=== PATIENT | male | born 1950 | race Native Hawaiian/Other Pacific Islander ===

== ENCOUNTER 2019-08-03 20:47 | Inpatient (IN) | payer MEDICARE, OTHER ==
[~2019-08-03] VITALS: Ht 167.6 cm; Wt 124.0 kg
[2019-08-03 21:50] LABS: Basophils # (auto) 0.1 uL; Basophils % (auto) 0.9 % (0.0-2.0); Eosinophils # (auto) 0.3 uL; Eosinophils % (auto) 4.8 % (0.0-7.0); Hematocrit 48.1 % (41.0-53.0); Hemoglobin 16.5 g/dL (13.5-17.5); Lymphocytes # (auto) 1.9 uL; Lymphocytes % (auto) 28.6 % (10.0-50.0); Mean Corpuscular Hemoglobin 30.4 pg (28.0-32.0); Mean Corpuscular Hgb Conc. 34.4 g/dL (32.0-36.0); Mean Corpuscular Volume 88.6 fL (80.0-100.0); Monocytes # (auto) 0.6 uL; Monocytes % (auto) 9.6 % (0.0-12.0); Neutrophils # (auto) 3.8 uL; Neutrophils % (auto) 56.1 % (37.0-80.0); Nucleated Red Blood Cells % 0.3 %; Platelet Count (auto) 209 10^3/uL (140-450); Red Blood Cells 5.43 10^6/uL (4.5-5.90); Red Cell Distribution Width 14.1 % (11.8-14.3); White Blood Cell 6.7 10^3/uL (4.4-10.8)
[2019-08-03 22:12] LABS: INR 1.16 (0.9-1.15); Partial Thromboplastin Time 30.4 sec (23.64-32.05)
[2019-08-03 22:22] LABS: Alanine Aminotransferase 758 U/L (16-61); Anion Gap 9 (5-15); Aspartate Aminotransferase 610 U/L (15-37); BUN/Creatinine Ratio 10.1; Blood Urea Nitrogen 14 mg/dL (7-18); Calcium 9.1 mg/dL (8.5-10.1); Carbon Dioxide 26 mmol/L (21-32); Chloride 102 mmol/L (98-107); GFR African American 65 mL/min; GFR Non-African American 54 mL/min; Glucose 126 mg/dL (74-106); Magnesium 2.2 mg/dL (1.6-2.6); Potassium 3.7 mmol/L (3.5-5.1); Sodium 137 mmol/L (136-145)
[2019-08-03 22:27] LABS: Alkaline Phosphatase 163 U/L (45-117); Bilirubin, Total 1.3 mg/dL (0.2-1.0); Total Protein 8.5 g/dL (6.4-8.2)
[2019-08-04] MEDS ORDERED: hydrALAZINE HCL 20 MG/ML VL IV PRN (12:45)
[2019-08-04] MEDS ORDERED: ACETAMINOPHEN 500 MG TAB PO PRN (12:45)
[2019-08-04] MEDS ORDERED: MORPHINE SULF INJ 2 MG/ML SYRINGE 1ML IV PRN ×2 (12:45)
[2019-08-04] MEDS ORDERED: NITROGLYCERIN 0.4 MG SL TAB SL PRN (12:45)
[2019-08-04] MEDS: HYDROcodone-ACET 5/325MG TAB PO PRN ×2 (13:09→20:51)
[2019-08-04 17:30] VITALS: BP 137/72
--- NOTE | 2019-08-04 17:30 | NUR ---
Received patient from ER via wheelchair. Patient vitals are 98.9, 71 bpm, 18RR, 91% and bp of 137/72. Patient laying in bed, no complaints of pain, bed in locked and lowest position and call light within reach.
--- NOTE | 2019-08-04 18:00 | NUR ---
Patient will have family bring in medications to reconcile.
--- NOTE | 2019-08-04 18:50 | NUR ---
Spoke with Dr. Zuñiga regarding patients diet. Implemented orders received.
--- NOTE | 2019-08-04 19:30 | NUR ---
Opening shift note Patient in bed alert and oriented x 4, verbally coherent, able to make needs known. Patient complained of moderate pain to lower back. Patient also complained of nausea, provided patient with emesis bag and will administer pain and nausea medication as ordered. Plan of care discussed, patient verbalized understanding. Family at bedside. All needs attended, will continue to monitor.
--- NOTE | 2019-08-04 19:35 | NUR ---
Provided patient with warm packs to lower back.
[2019-08-04] MEDS: ONDANSETRON HCL 4 MG/2 ML VIAL IV PRN (20:52)
[2019-08-04 21:32] VITALS: BP 150/76
[2019-08-04] MEDS: METOPROLOL TARTRATE 25 MG TAB PO SCH (21:49)
[2019-08-04] MEDS ORDERED: ATORVASTATIN 20 MG TAB PO SCH (22:00)
--- NOTE | 2019-08-04 23:15 | NUR ---
Pt with stress test order. Started another IV line to left hand 22 g with good blood return x 1 attempt. Patient tolerated procedure well. Will continue to monitor.
[2019-08-05 05:25] VITALS: BP 148/81
[2019-08-05 06:20] LABS: Basophils # (auto) 0.1 uL; Basophils % (auto) 1.9 % (0.0-2.0); Eosinophils # (auto) 0.6 uL; Eosinophils % (auto) 7.6 % (0.0-7.0); Hematocrit 46.3 % (41.0-53.0); Lymphocytes # (auto) 2.4 uL; Lymphocytes % (auto) 32.6 % (10.0-50.0); Mean Corpuscular Hemoglobin 30.5 pg (28.0-32.0); Mean Corpuscular Hgb Conc. 34.7 g/dL (32.0-36.0); Mean Corpuscular Volume 88.1 fL (80.0-100.0); Monocytes # (auto) 0.9 uL; Monocytes % (auto) 12.5 % (0.0-12.0); Neutrophils # (auto) 3.3 uL; Neutrophils % (auto) 45.4 % (37.0-80.0); Nucleated Red Blood Cells % 0.1 %; Platelet Count (auto) 190 10^3/uL (140-450); Red Blood Cells 5.25 10^6/uL (4.5-5.90); Red Cell Distribution Width 14.2 % (11.8-14.3); White Blood Cell 7.3 10^3/uL (4.4-10.8)
[2019-08-05 06:24] LABS: INR 1.2 (0.9-1.15); Partial Thromboplastin Time 30.1 sec (23.64-32.05)
[2019-08-05 06:33] LABS: Albumin 3.8 g/dL (3.4-5.0); Calcium 8.7 mg/dL (8.5-10.1); Potassium 3.7 mmol/L (3.5-5.1)
[2019-08-05 06:43] LABS: Cholesterol 194 mg/dL (< 200); HDL Cholesterol 32 mg/dL (40-59); LDL Cholesterol 153 mg/dL (< 100); Triglycerides 100 mg/dL (< 150)
[2019-08-05 06:45] LABS: BUN/Creatinine Ratio 14.3; Bilirubin, Total 1.4 mg/dL (0.2-1.0); Total Protein 7.1 g/dL (6.4-8.2)
--- NOTE | 2019-08-05 07:30 | NUR ---
Opening Shift Note Assumed care of patient, awake and alert X4. No S/S of distress/SOB, no pain noted or reported. Respirations are even and unlabored on RA. Updated on POC and instructed to call for assistance, patient verbalized understanding. Bed locked in lowest position, side rails up x2, call light within reach. Will continue to monitor for changes Q1hr and PRN.
[2019-08-05 09:11] VITALS: BP 152/70
[2019-08-05] MEDS: FAMOTIDINE 20 MG TAB PO SCH (09:21)
[2019-08-05] MEDS: ASPirin-EC 81 mg tab PO SCH (09:21)
[2019-08-05] MEDS: LISINOPRIL 10 MG TAB PO SCH (09:21)
[2019-08-05] MEDS: METOPROLOL TARTRATE 25 MG TAB PO SCH ×2 (09:22→21:34)
[2019-08-05] MEDS ORDERED: ADENOSINE 107 MG in GIVE UN-DILUTED 0 ML IV STA (09:59)
[2019-08-05 11:02] VITALS: BP 162/75
[2019-08-05] MEDS: ONDANSETRON HCL 4 MG/2 ML VIAL IV PRN (11:56)
[2019-08-05 13:00] VITALS: BP 112/71
[2019-08-05 17:17] VITALS: BP 146/65
--- NOTE | 2019-08-05 18:38 | NUR ---
PATIENT ROUNDS PATIENT APPEARS TO BE SLEEPING, RESTING WITH EYES CLOSED. NO S/S OF DISTRESS. NO PAIN NOTED AT THIS TIME. FAMILY AT BEDSIDE. CARE WILL BE ENDORSED TO FLEXBOARD OPERATOR RN.
--- NOTE | 2019-08-05 19:30 | NUR ---
Opening Shift Note Report received from day shift RN. Assumed care of patient. Patient awake and alert x4. No S/S of distress/SOB noted and denies pain or nausea at this time. at bedside. Bed locked and the lowest position with side rails up x2. Instructed on POC and to call for assist PRN, will continue to monitor for changes Q1hr and PRN.
[2019-08-05] MEDS: TEMAZEPAM 15 MG CAP PO PRN (21:34)
[2019-08-05 22:52] VITALS: BP 122/71
[2019-08-06 05:51] VITALS: BP 140/70
[2019-08-06] MEDS: HYDROcodone-ACET 5/325MG TAB PO PRN (06:12)
--- NOTE | 2019-08-06 08:35 | NUR ---
OPENING SHIFT NOTE ASSUMED CARE OF PATIENT. PATIENT AWAKE AND ALERT. NO SOB OR SIGNS OF DISTRESS NOTED. INSTRUCTED ON POC AND TO CALL FOR ASSISTANCE PRN. BED IN LOWEST POSITION WITH SIDE RAILS UP X2. WILL CONTINUE TO MONITOR.
[2019-08-06 09:00] VITALS: BP 134/77
[2019-08-06] MEDS: ASPirin-EC 81 mg tab PO SCH (09:43)
[2019-08-06] MEDS: LISINOPRIL 10 MG TAB PO SCH (09:44)
[2019-08-06] MEDS: FAMOTIDINE 20 MG TAB PO SCH (09:44)
[2019-08-06] MEDS: METOPROLOL TARTRATE 25 MG TAB PO SCH ×2 (10:00→21:14)
--- NOTE | 2019-08-06 10:30 | NUR ---
DR AT BEDSIDE DR FERRARA SPOKE WITH PATIENT. PLACED ORDERS. WILL CARRY OUT.
[2019-08-06 12:00] VITALS: BP 126/74
--- NOTE | 2019-08-06 13:06 | NUR ---
CALLED DR TORRE REGARDING STRESS TEST RESULTS PER DR FERRARA. AWAITING CALLBACK.
--- NOTE | 2019-08-06 15:34 | NUR ---
NUTRITION ASSESSMENT NOTES Please refer to link notes of nutrition screen form filed under the intervention section of the plan of care for further details. Est. Needs based on AdBW (79 kg): 1600 kcal to 1950 kcal (20-25 kcal/kgAdBW), 79 gms to 98 gms pro (1.0-1.2 gms/kgAdBW). Will continue to monitor pertinent labs and reassess nutrient need prn Thank you. Addendum: 08/06/19 at [address] Amended: Links added.
[2019-08-06 17:00] VITALS: BP 137/77
--- NOTE | 2019-08-06 19:15 | NUR ---
Opening Shift Note Report received from day shift RN. Assumed care of patient. Patient awake and alert x4. No S/S of distress/SOB noted and denies pain at this time. Bed locked and left in the lowest position, call light left within reach. Instructed on POC and to call for assist PRN, will continue to monitor for changes Q1hr and PRN.
[2019-08-06 22:22] VITALS: BP 137/81
[2019-08-06] MEDS: TEMAZEPAM 15 MG CAP PO PRN (23:51)
[2019-08-07 05:20] VITALS: BP 142/70
[2019-08-07 06:28] LABS: Potassium 3.3 mmol/L (3.5-5.1)
[2019-08-07 06:42] LABS: Albumin 3.6 g/dL (3.4-5.0); BUN/Creatinine Ratio 13.1; Bilirubin, Total 1.2 mg/dL (0.2-1.0); Calcium 8.7 mg/dL (8.5-10.1); Total Protein 7.6 g/dL (6.4-8.2)
--- NOTE | 2019-08-07 07:50 | NUR ---
Patient in bed, awake, oriented x4, no acute distress noted.
[2019-08-07 09:00] VITALS: BP 137/74
[2019-08-07] MEDS: HYDROcodone-ACET 5/325MG TAB PO PRN (09:30)
--- NOTE | 2019-08-07 09:30 | NUR ---
Patient stated his pain level at 10/10 at this time, that he has tingling, numbness on both his feet. Elk 5/325 PO given for pain as ordered.
[2019-08-07] MEDS: FAMOTIDINE 20 MG TAB PO SCH (09:31)
[2019-08-07] MEDS: ASPirin-EC 81 mg tab PO SCH (09:31)
[2019-08-07] MEDS: LISINOPRIL 10 MG TAB PO SCH (09:32)
[2019-08-07] MEDS: METOPROLOL TARTRATE 25 MG TAB PO SCH (09:32)
--- NOTE | 2019-08-07 09:38 | NUR ---
Vidya Machado at bedside. made aware of patient's complaint of tingling and numbness of both of his feet. Dr. Good explained to patient to follow up with his primary physician for orders for blood work as outpatient. Dr. Good to discharge the patient today.
[2019-08-07 10:52] VITALS: BP 137/74
[2019-08-07 11:17] VITALS: BP 137/74
[2019-08-07 12:37] LABS: Hepatitis A Ab IgM Negative; Hepatitis B Core IgM Negative; Hepatitis B Surface Antigen Negative (Negative)
[2019-08-07 12:38] LABS: Hepatitis C Antibody Negative (Negative)
== END 2019-08-07 12:00 | disposition home or self-care (01) | DRG 683 ==
LOC: ER 20:50 → TELE 20:51 → TELE-WESTW 08-04 17:43
PROVIDERS: ADMIT Nurse Practitioner Acute Care; ATTEND Family Medicine
DX: I12.9 Hypertensive chronic kidney disease with stage 1 through stage 4 chronic kidney disease, or unspecified chronic kidney disease (principal); Z68.41 Body mass index [BMI] 40.0-44.9, adult; I10 Essential (primary) hypertension; E66.01 Morbid (severe) obesity due to excess calories; E78.00 Pure hypercholesterolemia, unspecified; K76.0 Fatty (change of) liver, not elsewhere classified; Z91.14 Patient's other noncompliance with medication regimen; Z79.899 Other long term (current) drug therapy; N18.2 Chronic kidney disease, stage 2 (mild)
CPT/HCPCS: 36415; 71046; 74176; 76705; 78226; 78452; 80053; 80061; 80074; 83036; 83690; 83735; 83880; 84484; 85025; 85379; 85610; 85730; 86141; 93005; 93017; 93306; 96374; G0378; J0153; J2405

== ENCOUNTER → 2019-12-03 | Outpatient (CLI) | payer MEDICARE, OTHER ==
[~2019-12-03] VITALS: Ht 177.8 cm; Wt 103.9 kg
[~2019-12-03] MED LIST: ADENOSINE 87 MG in GIVE UN-DILUTED 0 ML IV ONE; ADENOSINE 90 MG/30 ML INJ IV ONE; ASPI325T4 PO; LISI10TA6 PO; METO25TA5 PO; TRAM50TA2 PO
== END | disposition home or self-care (01) ==
LOC: Rad HDHVI 12-02 09:12
PROVIDERS: ATTEND Internal Medicine Cardiovascular Disease
DX: I08.8 Other rheumatic multiple valve diseases (principal); R07.9 Chest pain, unspecified; R42 Dizziness and giddiness; R00.2 Palpitations
CPT/HCPCS: 78452; 93005; 93306; 96374; 96375; A9500; J0153

== ENCOUNTER → 2019-12-19 | Outpatient (CLI) | payer MEDICARE, OTHER ==
[~2019-12-19] MED LIST changes: -ADENOSINE 87 MG in GIVE UN-DILUTED 0 ML IV ONE; -ADENOSINE 90 MG/30 ML INJ IV ONE; +APIX2.5T PO; +ATOR40TA52 PO; +DOCU-94 PO; +LACT10SO43 PO; +METO25TA93 PO
[2019-12-19 09:00] VITALS: BP 111/66
[2019-12-19 09:30] VITALS: BP 113/61
--- NOTE | 2019-12-19 09:30 | NUR ---
Pre-Op Discharge Summary: See e-MAR for any medications given for this visit. Pre-op orders received and carried out per MD of EKG, LABS and chest xrays. Patient given a copy of EKG with instructions to go to [facility] out patient for further follow up care.
[2019-12-19 12:15] LABS: Basophils # (auto) 0 uL; Basophils % (auto) 0.5 % (0.0-2.0); Eosinophils # (auto) 0.2 uL; Eosinophils % (auto) 3.1 % (0.0-7.0); Hematocrit 41.4 % (41.0-53.0); Hemoglobin 13.9 g/dL (13.5-17.5); Lymphocytes # (auto) 2.1 uL; Lymphocytes % (auto) 27.6 % (10.0-50.0); Mean Corpuscular Hemoglobin 32.5 pg (28.0-32.0); Mean Corpuscular Hgb Conc. 33.6 g/dL (32.0-36.0); Mean Corpuscular Volume 96.9 fL (80.0-100.0); Monocytes # (auto) 0.5 uL; Monocytes % (auto) 6.1 % (0.0-12.0); Neutrophils # (auto) 4.8 uL; Neutrophils % (auto) 62.7 % (37.0-80.0); Platelet Count (auto) 194 10^3/uL (140-450); Red Blood Cells 4.28 10^6/uL (4.5-5.90); Red Cell Distribution Width 14.7 % (11.8-14.3); White Blood Cell 7.6 10^3/uL (4.4-10.8)
[2019-12-19 12:33] LABS: INR 1.07 (0.9-1.15); Partial Thromboplastin Time 30.6 sec (23.64-32.05)
[2019-12-19 12:37] LABS: Potassium 4.5 mmol/L (3.5-5.1)
[2019-12-19 12:41] LABS: BUN/Creatinine Ratio 12.3; Calcium 9.2 mg/dL (8.5-10.1)
== END | disposition home or self-care (01) ==
LOC: Rad HDHVI 08:47
PROVIDERS: ATTEND Internal Medicine Cardiovascular Disease
DX: Z01.812 Encounter for preprocedural laboratory examination (principal); I70.0 Atherosclerosis of aorta; I71.4 Abdominal aortic aneurysm, without rupture; R42 Dizziness and giddiness
CPT/HCPCS: 36415; 71046; 80048; 85025; 85610; 85730; 93005; G0463

== ENCOUNTER 2019-12-23 11:02 | Day surgery (SDC) | payer MEDICARE, OTHER ==
[~2019-12-23] VITALS: Ht 177.8 cm; Wt 105.2 kg
[~2019-12-23 11:02] MED LIST changes: -METO25TA5 PO
[2019-12-23] MEDS ORDERED: MIDAZOLAM HCL 1MG/1ML-2 ML VIAL IV ONE (12:00)
== END 2019-12-23 14:50 | disposition home or self-care (01) ==
LOC: CATH 11:02
PROVIDERS: ATTEND Internal Medicine Cardiovascular Disease
DX: R07.89 Other chest pain (principal); R06.02 Shortness of breath; I10 Essential (primary) hypertension; E78.5 Hyperlipidemia, unspecified; Z79.82 Long term (current) use of aspirin; Z79.899 Other long term (current) drug therapy
CPT/HCPCS: 93312; J2250

== ENCOUNTER → 2020-03-26 | Day surgery (SDC) | payer MEDICARE, OTHER ==
[2020-03-24 15:28] LABS: Basophils # (auto) 0 10 ^3/uL (0-0.2); Basophils % (auto) 0.9 % (0.0-2.0); Eosinophils # (auto) 0.1 10 ^3/uL (0-0.8); Eosinophils % (auto) 2.4 % (0.0-7.0); Hematocrit 40.7 % (41.0-53.0); Hemoglobin 13.5 g/dL (13.5-17.5); Lymphocytes # (auto) 1.6 10 ^3/uL (0.4-5.4); Lymphocytes % (auto) 29.4 % (10.0-50.0); Mean Corpuscular Hemoglobin 31.5 pg (28.0-32.0); Mean Corpuscular Hgb Conc. 33.2 g/dL (32.0-36.0); Mean Corpuscular Volume 94.7 fL (80.0-100.0); Monocytes # (auto) 0.4 10 ^3/uL (0-1.3); Monocytes % (auto) 6.8 % (0.0-12.0); Neutrophils # (auto) 3.3 10 ^3/uL (1.6-8.6); Neutrophils % (auto) 60.5 % (37.0-80.0); Nucleated Red Blood Cells % 0.1 %; Platelet Count (auto) 207 10^3/uL (140-450); Red Cell Distribution Width 13.5 % (11.8-14.3); White Blood Cell 5.4 10^3/uL (4.4-10.8)
[2020-03-24 15:33] LABS: INR 1.07 (0.9-1.15); Partial Thromboplastin Time 30.7 sec (23.64-32.05)
[~2020-03-26] VITALS: Ht 177.8 cm; Wt 108.9 kg
[~2020-03-26] MED LIST changes: +LIDOCAINE VISCOUS 2% 15ML UD ONE; +LISI-275 PO; +LISI-648 PO; -LISI10TA6 PO; +LORA-622 PO; +PANT40TA2 PO; +SODIUM CHLORIDE LOCK 10 ML ONE; +diphenhdrAMINE HCL 50 MG/1 ML VL ONE
[2020-03-26] MEDS: fentaNYL CITRATE 100 MCG/2 ML VL ONE ×3 (12:04→12:08)
[2020-03-26] MEDS: MIDAZOLAM HCL 5 MG/ML-1ML VIAL ONE ×2 (12:04→12:06)
[2020-03-26 13:00] VITALS: BP 108/51
== END | disposition home or self-care (01) ==
LOC: GI 10:05
PROVIDERS: ATTEND Internal Medicine Gastroenterology
DX: R10.13 Epigastric pain (principal); R11.0 Nausea; K29.50 Unspecified chronic gastritis without bleeding; K20.9 Esophagitis, unspecified; K44.9 Diaphragmatic hernia without obstruction or gangrene; J98.9 Respiratory disorder, unspecified; E66.09 Other obesity due to excess calories; Z68.34 Body mass index [BMI] 34.0-34.9, adult; Z83.3 Family history of diabetes mellitus; Z98.890 Other specified postprocedural states; Z79.01 Long term (current) use of anticoagulants; Z79.82 Long term (current) use of aspirin; Z79.899 Other long term (current) drug therapy; Z11.59 Encounter for screening for other viral diseases
CPT/HCPCS: 36415; 43239; 85025; 85610; 85730; 88305; 88312; 88313; 88342; J2250; J3010; J7030; U0003; 99152

== ENCOUNTER 2020-07-14 10:19 | Day surgery (SDC) | payer MEDICARE, OTHER ==
[2020-07-09 11:31] LABS: Basophils # (auto) 0 10 ^3/uL (0-0.2); Basophils % (auto) 0.6 % (0.0-2.0); Eosinophils # (auto) 0.2 10 ^3/uL (0-0.8); Eosinophils % (auto) 3.9 % (0.0-7.0); Hematocrit 43.3 % (41.0-53.0); Hemoglobin 14.4 g/dL (13.5-17.5); Lymphocytes # (auto) 1.7 10 ^3/uL (0.4-5.4); Lymphocytes % (auto) 34.7 % (10.0-50.0); Mean Corpuscular Hemoglobin 30.7 pg (28.0-32.0); Mean Corpuscular Hgb Conc. 33.3 g/dL (32.0-36.0); Monocytes # (auto) 0.3 10 ^3/uL (0-1.3); Monocytes % (auto) 6.9 % (0.0-12.0); Neutrophils # (auto) 2.7 10 ^3/uL (1.6-8.6); Neutrophils % (auto) 53.9 % (37.0-80.0); Platelet Count (auto) 196 10^3/uL (140-450); Red Cell Distribution Width 13.4 % (11.8-14.3)
[2020-07-09 11:52] LABS: INR 1.04 (0.9-1.15); Partial Thromboplastin Time 31.3 sec (23.0-31.2)
[~2020-07-14] VITALS: Ht 185.4 cm; Wt 111.1 kg
[~2020-07-14 10:19] MED LIST changes: -LIDOCAINE VISCOUS 2% 15ML UD ONE; -LISI-648 PO; -diphenhdrAMINE HCL 50 MG/1 ML VL ONE
[2020-07-14] MEDS: fentaNYL CITRATE 100 MCG/2 ML VL ONE ×3 (13:20→13:27)
[2020-07-14] MEDS: MIDAZOLAM HCL 5 MG/ML-1ML VIAL ONE ×4 (13:20→13:31)
[2020-07-14] MEDS: diphenhdrAMINE HCL 50 MG/1 ML VL ONE ×2 (13:36→13:51)
[2020-07-14 14:21] VITALS: BP 126/65
== END 2020-07-14 14:34 | disposition home or self-care (01) ==
LOC: GI 10:19
PROVIDERS: ATTEND Internal Medicine Gastroenterology
DX: R19.4 Change in bowel habit (principal); D12.3 Benign neoplasm of transverse colon; K64.8 Other hemorrhoids; Q43.8 Other specified congenital malformations of intestine; J98.8 Other specified respiratory disorders; I48.91 Unspecified atrial fibrillation; Z79.899 Other long term (current) drug therapy; Z79.82 Long term (current) use of aspirin; Z20.828 Contact with and (suspected) exposure to other viral communicable diseases
CPT/HCPCS: 36415; 45385; 85025; 85610; 85730; 88305; J1200; J2250; J3010; J7030; U0003; 99153; G0500

== ENCOUNTER 2021-07-05 18:04 | Inpatient (IN) | payer MEDICARE, OTHER ==
[~2021-07-05] VITALS: Ht 180.3 cm; Wt 113.8 kg
[~2021-07-05 18:04] MED LIST changes: -SODIUM CHLORIDE LOCK 10 ML ONE
[2021-07-05] MEDS ORDERED: DOPamine 1600MCG/ML D5W 250 ML IV ONE (18:15)
[2021-07-05] MEDS ORDERED: fentaNYL CITRATE 100 MCG/2 ML VL IV ONE ×2 (18:15→20:30)
[2021-07-05] MEDS ORDERED: SODIUM CHLORIDE 0.9% 1,000 ML IV ONE (18:30)
[2021-07-05 19:43] LABS: Basophils # (auto) 0.1 10 ^3/uL (0-0.2); Basophils % (auto) 0.9 % (0.0-2.0); Eosinophils # (auto) 0.1 10 ^3/uL (0-0.8); Hematocrit 45.8 % (41.0-53.0); Hemoglobin 15.4 g/dL (13.5-17.5); Mean Corpuscular Hemoglobin 31.1 pg (28.0-32.0); Mean Corpuscular Hgb Conc. 33.6 g/dL (32.0-36.0); Mean Corpuscular Volume 92.5 fL (80.0-100.0); Monocytes # (auto) 0.2 10 ^3/uL (0-1.3); Monocytes % (auto) 3.7 % (0.0-12.0); Neutrophils % (auto) 46.4 % (37.0-80.0); Nucleated Red Blood Cells % 0.2 %; Red Blood Cells 4.96 10^6/uL (4.5-5.90); Red Cell Distribution Width 13.9 % (11.8-14.3); White Blood Cell 6.5 10^3/uL (4.4-10.8)
[2021-07-05 19:48] LABS: INR 1.1 (0.9-1.15); Partial Thromboplastin Time 26.5 sec (23.6-33.0)
[2021-07-05 19:56] LABS: Albumin 3.7 g/dL (3.4-5.0); Anion Gap 10 (5-15); Blood Urea Nitrogen 31 mg/dL (7-18); Calcium 9.3 mg/dL (8.5-10.1); Carbon Dioxide 21 mmol/L (21-32); Chloride 107 mmol/L (98-107); Glucose 107 mg/dL (74-106); Potassium 3.7 mmol/L (3.5-5.1); Sodium 138 mmol/L (136-145)
[2021-07-05 20:01] LABS: Alanine Aminotransferase 21 U/L (16-61); Alkaline Phosphatase 158 U/L (45-117); Aspartate Aminotransferase 26 U/L (15-37); BUN/Creatinine Ratio 16.3; Bilirubin, Total 0.8 mg/dL (0.2-1.0); GFR African American 45 mL/min; GFR Non-African American 37 mL/min; Total Protein 7.9 g/dL (6.4-8.2)
[2021-07-05 20:40] VITALS: BP 138/57
[2021-07-05 22:10] VITALS: BP 130/50
[2021-07-05 22:25] VITALS: BP 131/67
[2021-07-05 23:10] VITALS: BP 120/60
[2021-07-05] MEDS ORDERED: metroNIDAZOLE 500MG/100ML 100 ML IV ONE (23:45)
[2021-07-05] MEDS ORDERED: cefTRIAXone 1GM/50ML D5W 50 ML IV ONE (23:45)
[2021-07-06 00:50] VITALS: BP 108/59
[2021-07-06 02:19] LABS: Hematocrit 46.8 % (41.0-53.0); Hemoglobin 16.5 g/dL (13.5-17.5)
[2021-07-06] MEDS ORDERED: NITROGLYCERIN 0.4 MG SL TAB SL PRN (02:45)
[2021-07-06] MEDS: SODIUM CHLORIDE 0.9% 1,000 ML IV SCH ×2 (02:45→16:37)
[2021-07-06] MEDS ORDERED: ONDANSETRON HCL 4 MG/2 ML VIAL IV PRN (02:45)
[2021-07-06] MEDS ORDERED: MORPHINE SULFATE INJECTION 2 MG/ML SYRG IV PRN (02:45)
[2021-07-06 02:52] LABS: Urine Bacteria NONE SEEN /hpf (None Seen); Urine Blood 2+ /uL (Negative); Urine Hyaline Cast FEW /lpf (0 - 2); Urine Mucus FEW (None Seen); Urine Specific Gravity 1.019 (1.001-1.035); Urine WBC 9 /hpf (0 - 3)
[2021-07-06] MEDS: metroNIDAZOLE 500MG/100ML 100 ML IV SCH ×3 (05:30→23:16)
[2021-07-06] MEDS: cefTRIAXone 1GM/50ML D5W 50 ML IV SCH (09:06)
[2021-07-06] MEDS: LISINOPRIL 5 MG TAB PO SCH (09:06)
[2021-07-06] MEDS: PANTOPRAZOLE 40 MG/10 ML VIAL INJ IV SCH (09:06)
[2021-07-06] MEDS: SUCRALFATE 1 GM/10 ML ORAL SUSP PO SCH ×2 (17:07→23:16)
[2021-07-06] MEDS: ATORVASTATIN 20 MG TAB PO SCH (23:17)
[2021-07-07 01:45] VITALS: BP 129/77
[2021-07-07 05:01] VITALS: BP 116/62
[2021-07-07] MEDS: SODIUM CHLORIDE 0.9% 1,000 ML IV SCH (05:25)
[2021-07-07] MEDS: metroNIDAZOLE 500MG/100ML 100 ML IV SCH ×3 (06:15→21:34)
[2021-07-07] MEDS: SUCRALFATE 1 GM/10 ML ORAL SUSP PO SCH ×4 (06:15→22:18)
[2021-07-07 06:23] LABS: Basophils # (auto) 0 10 ^3/uL (0-0.2); Basophils % (auto) 0.6 % (0.0-2.0); Eosinophils # (auto) 0.3 10 ^3/uL (0-0.8); Eosinophils % (auto) 3.9 % (0.0-7.0); Hematocrit 43.5 % (41.0-53.0); Hemoglobin 15.1 g/dL (13.5-17.5); Lymphocytes # (auto) 1.2 10 ^3/uL (0.4-5.4); Mean Corpuscular Hgb Conc. 34.8 g/dL (32.0-36.0); Mean Corpuscular Volume 92.1 fL (80.0-100.0); Monocytes # (auto) 0.6 10 ^3/uL (0-1.3); Monocytes % (auto) 8.7 % (0.0-12.0); Neutrophils # (auto) 4.7 10 ^3/uL (1.6-8.6); Neutrophils % (auto) 68.8 % (37.0-80.0); Nucleated Red Blood Cells % 0.1 %; Red Blood Cells 4.72 10^6/uL (4.5-5.90); Red Cell Distribution Width 14.2 % (11.8-14.3); White Blood Cell 6.8 10^3/uL (4.4-10.8)
[2021-07-07 06:30] LABS: Chloride 111 mmol/L (98-107); Potassium 3.8 mmol/L (3.5-5.1); Sodium 139 mmol/L (136-145)
[2021-07-07 06:42] LABS: Alanine Aminotransferase 21 U/L (16-61); Albumin 2.8 g/dL (3.4-5.0); Alkaline Phosphatase 138 U/L (45-117); Anion Gap 7 (5-15); Aspartate Aminotransferase 22 U/L (15-37); BUN/Creatinine Ratio 23.3; Bilirubin, Total 0.8 mg/dL (0.2-1.0); Blood Urea Nitrogen 30 mg/dL (7-18); Calcium 8.4 mg/dL (8.5-10.1); Carbon Dioxide 21 mmol/L (21-32); GFR African American 70 mL/min; GFR Non-African American 58 mL/min; Glucose 89 mg/dL (74-106); Total Protein 6.5 g/dL (6.4-8.2)
[2021-07-07] MEDS ORDERED: LACTULOSE 20Gm/30ML SOLN PO PRN (08:45)
[2021-07-07 09:00] VITALS: BP 122/60
[2021-07-07] MEDS: cefTRIAXone 1GM/50ML D5W 50 ML IV SCH (09:20)
[2021-07-07] MEDS: PANTOPRAZOLE 40 MG/10 ML VIAL INJ IV SCH (09:20)
[2021-07-07] MEDS: LISINOPRIL 5 MG TAB PO SCH (09:21)
[2021-07-07] MEDS: Ensure HIGH Protein Chocolate 8oz Bottle PO SCH ×2 (12:00→18:27)
[2021-07-07 13:00] VITALS: BP 126/65
[2021-07-07 17:00] VITALS: BP_SYST 95; BP_SYST 97; BP_DIAS 37; BP_DIAS 47
[2021-07-07 21:46] VITALS: BP 119/71
[2021-07-07] MEDS: ATORVASTATIN 20 MG TAB PO SCH (22:18)
[2021-07-08] MEDS: SODIUM CHLORIDE 0.9% 1,000 ML IV SCH ×3 (02:43→20:37)
[2021-07-08 05:00] VITALS: BP 124/65
[2021-07-08] MEDS: metroNIDAZOLE 500MG/100ML 100 ML IV SCH ×3 (06:01→22:38)
[2021-07-08] MEDS: SUCRALFATE 1 GM/10 ML ORAL SUSP PO SCH ×3 (06:01→22:38)
[2021-07-08 06:28] LABS: Basophils # (auto) 0 10 ^3/uL (0-0.2); Basophils % (auto) 0.5 % (0.0-2.0); Eosinophils # (auto) 0.3 10 ^3/uL (0-0.8); Eosinophils % (auto) 4.8 % (0.0-7.0); Hematocrit 43.5 % (41.0-53.0); Hemoglobin 14.8 g/dL (13.5-17.5); Lymphocytes # (auto) 1.2 10 ^3/uL (0.4-5.4); Lymphocytes % (auto) 18.2 % (10.0-50.0); Mean Corpuscular Hemoglobin 31.5 pg (28.0-32.0); Mean Corpuscular Hgb Conc. 34.1 g/dL (32.0-36.0); Mean Corpuscular Volume 92.3 fL (80.0-100.0); Monocytes # (auto) 0.6 10 ^3/uL (0-1.3); Monocytes % (auto) 9.7 % (0.0-12.0); Neutrophils # (auto) 4.3 10 ^3/uL (1.6-8.6); Neutrophils % (auto) 66.8 % (37.0-80.0); Nucleated Red Blood Cells % 0.1 %; Red Blood Cells 4.71 10^6/uL (4.5-5.90); White Blood Cell 6.4 10^3/uL (4.4-10.8)
[2021-07-08 06:41] LABS: Albumin 2.8 g/dL (3.4-5.0); Calcium 8.4 mg/dL (8.5-10.1); Potassium 3.8 mmol/L (3.5-5.1)
[2021-07-08 06:46] LABS: BUN/Creatinine Ratio 18.6; Bilirubin, Total 0.7 mg/dL (0.2-1.0); Total Protein 6.5 g/dL (6.4-8.2)
[2021-07-08] MEDS: Ensure HIGH Protein Chocolate 8oz Bottle PO SCH ×3 (08:16→20:37)
[2021-07-08] MEDS: cefTRIAXone 1GM/50ML D5W 50 ML IV SCH (08:38)
[2021-07-08 09:00] VITALS: BP 125/68
[2021-07-08] MEDS: LISINOPRIL 5 MG TAB PO SCH (09:19)
[2021-07-08] MEDS: PANTOPRAZOLE 40 MG/10 ML VIAL INJ IV SCH (09:20)
[2021-07-08 13:00] VITALS: BP 99/58
[2021-07-08 16:56] VITALS: BP 108/59
[2021-07-08 22:00] VITALS: BP 124/95
[2021-07-08] MEDS: ATORVASTATIN 20 MG TAB PO SCH (22:38)
[2021-07-09] MEDS: traMADol HCL 50 MG TAB PO PRN (02:11)
[2021-07-09 05:00] VITALS: BP 124/67
[2021-07-09 05:48] LABS: Basophils # (auto) 0 10 ^3/uL (0-0.2); Basophils % (auto) 0.5 % (0.0-2.0); Eosinophils # (auto) 0.4 10 ^3/uL (0-0.8); Eosinophils % (auto) 5.7 % (0.0-7.0); Hematocrit 42.1 % (41.0-53.0); Hemoglobin 14.7 g/dL (13.5-17.5); Lymphocytes # (auto) 1.7 10 ^3/uL (0.4-5.4); Lymphocytes % (auto) 27.1 % (10.0-50.0); Mean Corpuscular Hemoglobin 31.9 pg (28.0-32.0); Mean Corpuscular Hgb Conc. 34.8 g/dL (32.0-36.0); Mean Corpuscular Volume 91.7 fL (80.0-100.0); Monocytes # (auto) 0.6 10 ^3/uL (0-1.3); Neutrophils # (auto) 3.6 10 ^3/uL (1.6-8.6); Neutrophils % (auto) 57.7 % (37.0-80.0); Nucleated Red Blood Cells % 0.1 %; Red Cell Distribution Width 13.8 % (11.8-14.3); White Blood Cell 6.2 10^3/uL (4.4-10.8)
[2021-07-09 06:03] LABS: Potassium 3.6 mmol/L (3.5-5.1)
[2021-07-09 06:12] LABS: BUN/Creatinine Ratio 15.9; Calcium 8.2 mg/dL (8.5-10.1)
[2021-07-09] MEDS: metroNIDAZOLE 500MG/100ML 100 ML IV SCH ×3 (06:21→22:18)
[2021-07-09] MEDS: SUCRALFATE 1 GM/10 ML ORAL SUSP PO SCH ×4 (06:21→22:18)
[2021-07-09 09:00] VITALS: BP 102/74
[2021-07-09] MEDS: PANTOPRAZOLE 40 MG/10 ML VIAL INJ IV SCH (09:24)
[2021-07-09] MEDS: cefTRIAXone 1GM/50ML D5W 50 ML IV SCH (09:25)
[2021-07-09] MEDS: LISINOPRIL 5 MG TAB PO SCH (09:25)
[2021-07-09] MEDS: Ensure HIGH Protein Chocolate 8oz Bottle PO SCH ×3 (09:25→18:13)
[2021-07-09] MEDS: SODIUM CHLORIDE 0.9% 1,000 ML IV SCH (12:18)
[2021-07-09 12:39] VITALS: BP 117/68
[2021-07-09 16:44] VITALS: BP 101/72
[2021-07-09 22:00] VITALS: BP 102/69
[2021-07-09] MEDS: ATORVASTATIN 20 MG TAB PO SCH (22:18)
[2021-07-10] MEDS: traMADol HCL 50 MG TAB PO PRN ×2 (02:07→23:28)
[2021-07-10] MEDS: SODIUM CHLORIDE 0.9% 1,000 ML IV SCH ×2 (03:38→18:46)
[2021-07-10 04:59] VITALS: BP 128/76
[2021-07-10] MEDS: metroNIDAZOLE 500MG/100ML 100 ML IV SCH ×3 (05:15→21:03)
[2021-07-10] MEDS: SUCRALFATE 1 GM/10 ML ORAL SUSP PO SCH ×4 (06:02→21:04)
[2021-07-10 06:58] LABS: Basophils # (auto) 0 10 ^3/uL (0-0.2); Basophils % (auto) 0.6 % (0.0-2.0); Eosinophils # (auto) 0.3 10 ^3/uL (0-0.8); Eosinophils % (auto) 4.6 % (0.0-7.0); Hematocrit 42.7 % (41.0-53.0); Hemoglobin 14.5 g/dL (13.5-17.5); Lymphocytes # (auto) 1.5 10 ^3/uL (0.4-5.4); Lymphocytes % (auto) 25.6 % (10.0-50.0); Mean Corpuscular Hemoglobin 31.1 pg (28.0-32.0); Mean Corpuscular Volume 91.4 fL (80.0-100.0); Monocytes # (auto) 0.6 10 ^3/uL (0-1.3); Monocytes % (auto) 9.9 % (0.0-12.0); Neutrophils # (auto) 3.4 10 ^3/uL (1.6-8.6); Neutrophils % (auto) 59.3 % (37.0-80.0); Nucleated Red Blood Cells % 0.1 %; Red Blood Cells 4.66 10^6/uL (4.5-5.90); Red Cell Distribution Width 13.7 % (11.8-14.3); White Blood Cell 5.8 10^3/uL (4.4-10.8)
[2021-07-10 07:11] LABS: BUN/Creatinine Ratio 15.6; Calcium 8.4 mg/dL (8.5-10.1); Potassium 3.7 mmol/L (3.5-5.1)
[2021-07-10 09:00] VITALS: BP 114/78
[2021-07-10] MEDS: PANTOPRAZOLE 40 MG/10 ML VIAL INJ IV SCH (09:28)
[2021-07-10] MEDS: cefTRIAXone 1GM/50ML D5W 50 ML IV SCH (09:28)
[2021-07-10] MEDS: Ensure HIGH Protein Chocolate 8oz Bottle PO SCH ×3 (09:30→17:45)
[2021-07-10] MEDS: LISINOPRIL 5 MG TAB PO SCH (09:30)
[2021-07-10] MEDS: CLINDAMYCIN HCL 150 MG CAP PO SCH ×3 (13:05→23:27)
[2021-07-10 17:00] VITALS: BP 138/53
[2021-07-10] MEDS: ATORVASTATIN 20 MG TAB PO SCH (21:03)
[2021-07-10 22:00] VITALS: BP 143/93
[2021-07-11] MEDS: SODIUM CHLORIDE 0.9% 1,000 ML IV SCH ×2 (02:45→08:00)
[2021-07-11 05:00] VITALS: BP 130/74
[2021-07-11 05:16] LABS: Basophils # (auto) 0 10 ^3/uL (0-0.2); Basophils % (auto) 0.7 % (0.0-2.0); Eosinophils # (auto) 0.2 10 ^3/uL (0-0.8); Eosinophils % (auto) 4.2 % (0.0-7.0); Hematocrit 41.6 % (41.0-53.0); Hemoglobin 14.3 g/dL (13.5-17.5); Lymphocytes # (auto) 1.5 10 ^3/uL (0.4-5.4); Lymphocytes % (auto) 26.1 % (10.0-50.0); Mean Corpuscular Hemoglobin 31.2 pg (28.0-32.0); Mean Corpuscular Hgb Conc. 34.4 g/dL (32.0-36.0); Mean Corpuscular Volume 90.6 fL (80.0-100.0); Monocytes # (auto) 0.5 10 ^3/uL (0-1.3); Monocytes % (auto) 8.6 % (0.0-12.0); Neutrophils # (auto) 3.5 10 ^3/uL (1.6-8.6); Neutrophils % (auto) 60.4 % (37.0-80.0); Red Blood Cells 4.59 10^6/uL (4.5-5.90); Red Cell Distribution Width 13.4 % (11.8-14.3); White Blood Cell 5.8 10^3/uL (4.4-10.8)
[2021-07-11] MEDS: CLINDAMYCIN HCL 150 MG CAP PO SCH ×3 (05:24→17:53)
[2021-07-11] MEDS: metroNIDAZOLE 500MG/100ML 100 ML IV SCH ×2 (05:24→14:00)
[2021-07-11 05:51] LABS: Calcium 8.4 mg/dL (8.5-10.1); Potassium 3.8 mmol/L (3.5-5.1)
[2021-07-11 05:55] LABS: BUN/Creatinine Ratio 14.5
[2021-07-11] MEDS: SUCRALFATE 1 GM/10 ML ORAL SUSP PO SCH ×4 (06:00→22:34)
[2021-07-11] MEDS: Ensure HIGH Protein Chocolate 8oz Bottle PO SCH ×3 (08:00→17:53)
[2021-07-11 09:00] VITALS: BP 130/72
[2021-07-11] MEDS: cefTRIAXone 1GM/50ML D5W 50 ML IV SCH (09:00)
[2021-07-11] MEDS: LISINOPRIL 5 MG TAB PO SCH (10:00)
[2021-07-11] MEDS: PANTOPRAZOLE 40 MG/10 ML VIAL INJ IV SCH (10:00)
[2021-07-11 13:00] VITALS: BP 122/62
[2021-07-11 15:31] LABS: INR 1.22 (0.9-1.15)
[2021-07-11 17:00] VITALS: BP 135/75
[2021-07-11 22:00] VITALS: BP 138/76
[2021-07-11] MEDS: ATORVASTATIN 20 MG TAB PO SCH (22:11)
[2021-07-11] MEDS: traMADol HCL 50 MG TAB PO PRN (22:34)
[2021-07-12] VITALS (10 sets, daily range): BP systolic 122–168; BP diastolic 71–91
[2021-07-12] MEDS: SODIUM CHLORIDE 0.9% 1,000 ML IV SCH ×2 (00:10→17:00)
[2021-07-12] MEDS: CLINDAMYCIN HCL 150 MG CAP PO SCH ×3 (00:10→11:40)
[2021-07-12 05:58] LABS: Basophils # (auto) 0 10 ^3/uL (0-0.2); Basophils % (auto) 0.6 % (0.0-2.0); Eosinophils # (auto) 0.2 10 ^3/uL (0-0.8); Eosinophils % (auto) 3.6 % (0.0-7.0); Hematocrit 40.8 % (41.0-53.0); Hemoglobin 13.9 g/dL (13.5-17.5); Lymphocytes # (auto) 1.5 10 ^3/uL (0.4-5.4); Lymphocytes % (auto) 22.8 % (10.0-50.0); Mean Corpuscular Hemoglobin 31.1 pg (28.0-32.0); Mean Corpuscular Hgb Conc. 34.1 g/dL (32.0-36.0); Mean Corpuscular Volume 91.1 fL (80.0-100.0); Monocytes # (auto) 0.6 10 ^3/uL (0-1.3); Monocytes % (auto) 9.3 % (0.0-12.0); Neutrophils # (auto) 4.3 10 ^3/uL (1.6-8.6); Neutrophils % (auto) 63.7 % (37.0-80.0); Nucleated Red Blood Cells % 0.1 %; Red Blood Cells 4.48 10^6/uL (4.5-5.90); Red Cell Distribution Width 13.6 % (11.8-14.3); White Blood Cell 6.7 10^3/uL (4.4-10.8)
[2021-07-12] MEDS: SUCRALFATE 1 GM/10 ML ORAL SUSP PO SCH ×4 (07:00→21:49)
[2021-07-12 07:09] LABS: Albumin 2.6 g/dL (3.4-5.0); Calcium 8.1 mg/dL (8.5-10.1); Potassium 3.5 mmol/L (3.5-5.1)
[2021-07-12 07:11] LABS: BUN/Creatinine Ratio 12.5
[2021-07-12 07:21] LABS: Bilirubin, Total 0.5 mg/dL (0.2-1.0); Total Protein 5.9 g/dL (6.4-8.2)
[2021-07-12] MEDS: Ensure HIGH Protein Chocolate 8oz Bottle PO SCH ×3 (08:00→17:57)
[2021-07-12] MEDS: PANTOPRAZOLE 40 MG/10 ML VIAL INJ IV SCH (10:00)
[2021-07-12] MEDS: LISINOPRIL 5 MG TAB PO SCH (10:00)
[2021-07-12] MEDS: levoFLOXacin 500 MG TAB PO SCH (10:00)
[2021-07-12] MEDS ORDERED: VANCOMYCIN HCL 1000 MG VL ONE (14:01)
[2021-07-12] MEDS ORDERED: fentaNYL CITRATE 100 MCG/2 ML VL ONE (14:02)
[2021-07-12] MEDS ORDERED: MIDAZOLAM HCL 2MG/2ML 2ml VIAL (1mg/ml) ONE (14:02)
[2021-07-12] MEDS ORDERED: VANCOMYCIN 1GM/250ML 250 ML IV ONE (14:04)
[2021-07-12] MEDS ORDERED: LIDOCAINE 2%HCL (LOCAL ANESTH.) INJ 20ML MDV ONE (14:15)
[2021-07-12] MEDS: traMADol HCL 50 MG TAB PO PRN ×2 (17:05→21:33)
[2021-07-12] MEDS: ATORVASTATIN 20 MG TAB PO SCH (21:33)
[2021-07-12] MEDS: metroNIDAZOLE 500 MG TAB PO SCH (21:34)
[2021-07-12] MEDS: DOCUSATE SOD 100 MG CAP PO SCH (21:49)
[2021-07-12] MEDS: VANCOMYCIN 1GM/250ML 250 ML IV SCH (22:25)
[2021-07-13 05:00] VITALS: BP 133/77
[2021-07-13 05:46] LABS: Basophils # (auto) 0 10 ^3/uL (0-0.2); Basophils % (auto) 0.5 % (0.0-2.0); Eosinophils # (auto) 0.2 10 ^3/uL (0-0.8); Eosinophils % (auto) 2.8 % (0.0-7.0); Hematocrit 40.9 % (41.0-53.0); Hemoglobin 14.5 g/dL (13.5-17.5); Lymphocytes # (auto) 1.3 10 ^3/uL (0.4-5.4); Lymphocytes % (auto) 21.4 % (10.0-50.0); Mean Corpuscular Hemoglobin 31.9 pg (28.0-32.0); Mean Corpuscular Hgb Conc. 35.5 g/dL (32.0-36.0); Mean Corpuscular Volume 89.7 fL (80.0-100.0); Monocytes # (auto) 0.6 10 ^3/uL (0-1.3); Monocytes % (auto) 10.2 % (0.0-12.0); Neutrophils % (auto) 65.1 % (37.0-80.0); Red Blood Cells 4.56 10^6/uL (4.5-5.90); Red Cell Distribution Width 13.6 % (11.8-14.3); White Blood Cell 6.2 10^3/uL (4.4-10.8)
[2021-07-13] MEDS: metroNIDAZOLE 500 MG TAB PO SCH ×2 (05:55→14:08)
[2021-07-13] MEDS: SUCRALFATE 1 GM/10 ML ORAL SUSP PO SCH ×3 (05:55→17:00)
[2021-07-13 05:58] LABS: INR 1.3 (0.9-1.15)
[2021-07-13] MEDS: traMADol HCL 50 MG TAB PO PRN (07:25)
[2021-07-13 08:29] LABS: Potassium 2.9 mmol/L (3.5-5.1)
[2021-07-13 09:00] VITALS: BP 135/77
[2021-07-13] MEDS ORDERED: POTASSIUM CHL 20MEQ/100ML 100 ML IV SCH (09:15)
[2021-07-13] MEDS: Ensure HIGH Protein Chocolate 8oz Bottle PO SCH ×2 (09:16→12:23)
[2021-07-13] MEDS: SODIUM CHLORIDE 0.9% 1,000 ML IV SCH (09:17)
[2021-07-13] MEDS: PANTOPRAZOLE 40 MG/10 ML VIAL INJ IV SCH (09:23)
[2021-07-13] MEDS: DOCUSATE SOD 100 MG CAP PO SCH (09:24)
[2021-07-13] MEDS: LISINOPRIL 5 MG TAB PO SCH (09:24)
[2021-07-13] MEDS: levoFLOXacin 500 MG TAB PO SCH (09:24)
[2021-07-13] MEDS: VANCOMYCIN 1GM/250ML 250 ML IV SCH (09:24)
[2021-07-13] MEDS ORDERED: POTASSIUM CHL 20 Meq TABLET PO ONE ×2 (10:30→16:00)
[2021-07-13] MEDS ORDERED: PANT40TA2 PO (12:06)
[2021-07-13] MEDS ORDERED: SUCR1TAB22 PO (12:06)
[2021-07-13] MEDS ORDERED: METR500T PO (12:06)
[2021-07-13] MEDS ORDERED: LEVO500T31 PO (12:06)
[2021-07-13 13:00] VITALS: BP 142/74
[2021-07-13 14:55] VITALS: BP 142/74
== END 2021-07-13 17:20 | disposition home health service (06) | DRG 242 ==
LOC: EDBD 18:04 → ER 18:06 → TELE 07-06 02:40 → TELE-CENTR 07-06 23:38 → TELE-WESTW 07-10 11:46
PROVIDERS: ADMIT Nurse Practitioner; ATTEND Internal Medicine
PROC: 30233N1 Transfusion of Nonautologous Red Blood Cells into Peripheral Vein, Percutaneous Approach (ICD-10-PCS; principal; 2021-07-05)
PROC: 0JH606Z Insertion of Pacemaker, Dual Chamber into Chest Subcutaneous Tissue and Fascia, Open Approach (ICD-10-PCS; 2021-07-13)
PROC: 02H63JZ Insertion of Pacemaker Lead into Right Atrium, Percutaneous Approach (ICD-10-PCS; 2021-07-13)
PROC: 02HK3JZ Insertion of Pacemaker Lead into Right Ventricle, Percutaneous Approach (ICD-10-PCS; 2021-07-13)
DX: I49.5 Sick sinus syndrome (principal); N17.0 Acute kidney failure with tubular necrosis; L03.113 Cellulitis of right upper limb; K92.2 Gastrointestinal hemorrhage, unspecified; J98.11 Atelectasis; K52.9 Noninfective gastroenteritis and colitis, unspecified; I48.0 Paroxysmal atrial fibrillation; E88.09 Other disorders of plasma-protein metabolism, not elsewhere classified; E66.9 Obesity, unspecified; E78.5 Hyperlipidemia, unspecified; E87.6 Hypokalemia; I12.9 Hypertensive chronic kidney disease with stage 1 through stage 4 chronic kidney disease, or unspecified chronic kidney disease; Z20.822 Contact with and (suspected) exposure to COVID-19; N18.30 Chronic kidney disease, stage 3 unspecified; K21.9 Gastro-esophageal reflux disease without esophagitis; Z82.49 Family history of ischemic heart disease and other diseases of the circulatory system; Z83.3 Family history of diabetes mellitus; Z68.34 Body mass index [BMI] 34.0-34.9, adult
CPT/HCPCS: 33208; 36415; 36430; 71045; 74176; 80048; 80053; 81001; 82270; 82378; 83735; 84132; 84443; 84484; 85014; 85018; 85025; 85610; 85730; 86850; 86900; 86901; 86920; 87086; 87426; 93005; 93306; 96365; 96367; 96375; 97163; 99152; 99153; 99291; C1785; C9113; G0378; J0696; J2250; J3480; J3490

== ENCOUNTER → 2021-10-10 | Outpatient (CLI) | payer MEDICARE, OTHER ==
[~2021-10-10] MED LIST changes: +LEVO500T31 PO; -METO25TA93 PO; +METR500T PO; +SUCR1TAB22 PO
== END | disposition home or self-care (01) ==
LOC: Rad HDHVI 10:30
PROVIDERS: ATTEND Internal Medicine Cardiovascular Disease
DX: M19.012 Primary osteoarthritis, left shoulder (principal); M25.512 Pain in left shoulder; Z95.0 Presence of cardiac pacemaker
CPT/HCPCS: 73030

== ENCOUNTER → 2021-12-23 | Outpatient (CLI) | payer MEDICARE, OTHER ==
[~2021-12-23] MED LIST changes: +IOHEXOL 350 MG/ML 100ML IJ ONE; +SODIUM CHLORIDE 0.9% 500 ML IV ONE
[2021-12-23 13:39] VITALS: BP 122/65
[2021-12-23 14:32] LABS: BUN/Creatinine Ratio 16.4; Calcium 9.3 mg/dL (8.5-10.1); Potassium 4.6 mmol/L (3.5-5.1)
[2021-12-23 15:20] LABS: Bilirubin, Total 0.4 mg/dL (0.2-1.0); Total Protein 7.9 g/dL (6.4-8.2)
[2021-12-23 15:24] LABS: Basophils # (auto) 0.1 10 ^3/uL (0-0.2); Basophils % (auto) 1.7 % (0.0-2.0); Eosinophils # (auto) 0.1 10 ^3/uL (0-0.8); Eosinophils % (auto) 1.4 % (0.0-7.0); Hematocrit 45.8 % (41.0-53.0); Hemoglobin 15.2 g/dL (13.5-17.5); Lymphocytes # (auto) 2.1 10 ^3/uL (0.4-5.4); Lymphocytes % (auto) 36.4 % (10.0-50.0); Mean Corpuscular Hemoglobin 31.6 pg (28.0-32.0); Mean Corpuscular Hgb Conc. 33.2 g/dL (32.0-36.0); Mean Corpuscular Volume 95.2 fL (80.0-100.0); Monocytes # (auto) 0.4 10 ^3/uL (0-1.3); Monocytes % (auto) 6.3 % (0.0-12.0); Neutrophils # (auto) 3.1 10 ^3/uL (1.6-8.6); Neutrophils % (auto) 54.2 % (37.0-80.0); Nucleated Red Blood Cells % 0.1 %; Red Blood Cells 4.81 10^6/uL (4.5-5.90); Red Cell Distribution Width 14.7 % (11.8-14.3); White Blood Cell 5.7 10^3/uL (4.4-10.8)
[2021-12-23 15:30] LABS: Bilirubin, Direct 0.1 mg/dL (0-0.2)
[2021-12-23 15:37] LABS: Urine Blood Negative /uL (Negative); Urine Specific Gravity 1.022 (1.001-1.035)
[2021-12-23 15:42] VITALS: BP 117/82
[2021-12-23 16:07] LABS: Albumin 3.9 g/dL (3.4-5.0)
== END | disposition home or self-care (01) ==
LOC: Rad HDHVI 13:27
PROVIDERS: ATTEND Internal Medicine Cardiovascular Disease
DX: N62 Hypertrophy of breast (principal); R91.1 Solitary pulmonary nodule; R42 Dizziness and giddiness; R94.4 Abnormal results of kidney function studies; D51.9 Vitamin B12 deficiency anemia, unspecified; I10 Essential (primary) hypertension; E11.9 Type 2 diabetes mellitus without complications; E78.5 Hyperlipidemia, unspecified; Z95.0 Presence of cardiac pacemaker; Z85.46 Personal history of malignant neoplasm of prostate; Z79.899 Other long term (current) drug therapy
CPT/HCPCS: 36415; 71275; 80048; 80061; 80076; 81003; 82306; 83036; 84153; 84403; 84443; 85025; 96360; G0463; J7040; Q9967

== ENCOUNTER → 2021-12-28 | Outpatient (CLI) | payer MEDICARE, OTHER ==
[~2021-12-28] VITALS: Ht 180.3 cm; Wt 112.0 kg
[~2021-12-28] MED LIST changes: +ADENOSINE 90 MG/30 ML INJ IV ONE; +ADENOSINE 94 MG in GIVE UN-DILUTED 0 ML IV ONE; -IOHEXOL 350 MG/ML 100ML IJ ONE; -SODIUM CHLORIDE 0.9% 500 ML IV ONE
== END | disposition home or self-care (01) ==
LOC: Rad HDHVI 08:23
PROVIDERS: ATTEND Internal Medicine Cardiovascular Disease
DX: Z01.810 Encounter for preprocedural cardiovascular examination (principal); I10 Essential (primary) hypertension; R42 Dizziness and giddiness; E78.5 Hyperlipidemia, unspecified; R07.9 Chest pain, unspecified; R06.02 Shortness of breath; Z95.0 Presence of cardiac pacemaker
CPT/HCPCS: 78452; 93005; 96374; 96375; A9500; J0153

== ENCOUNTER 2022-05-13 18:51 | Inpatient (IN) | payer MEDICARE, OTHER ==
[~2022-05-13] VITALS: Ht 177.8 cm; Wt 114.5 kg
[~2022-05-13 18:51] MED LIST changes: -ADENOSINE 90 MG/30 ML INJ IV ONE; -ADENOSINE 94 MG in GIVE UN-DILUTED 0 ML IV ONE
[2022-05-13 20:26] LABS: Basophils # (auto) 0 10 ^3/uL (0-0.2); Basophils % (auto) 0.4 % (0.0-2.0); Eosinophils # (auto) 0.2 10 ^3/uL (0-0.8); Eosinophils % (auto) 2.7 % (0.0-7.0); Hematocrit 43.2 % (41.0-53.0); Hemoglobin 14.3 g/dL (13.5-17.5); Lymphocytes # (auto) 2.1 10 ^3/uL (0.4-5.4); Lymphocytes % (auto) 29.2 % (10.0-50.0); Mean Corpuscular Hemoglobin 30.3 pg (28.0-32.0); Mean Corpuscular Hgb Conc. 33.1 g/dL (32.0-36.0); Mean Corpuscular Volume 91.5 fL (80.0-100.0); Monocytes # (auto) 0.5 10 ^3/uL (0-1.3); Monocytes % (auto) 6.8 % (0.0-12.0); Neutrophils # (auto) 4.3 10 ^3/uL (1.6-8.6); Neutrophils % (auto) 60.9 % (37.0-80.0); Nucleated Red Blood Cells % 0.1 %; Red Blood Cells 4.71 10^6/uL (4.5-5.90); Red Cell Distribution Width 13.7 % (11.8-14.3); White Blood Cell 7.1 10^3/uL (4.4-10.8)
[2022-05-13 20:51] LABS: Albumin 3.7 g/dL (3.4-5.0); Calcium 8.6 mg/dL (8.5-10.1); Magnesium 2.2 mg/dL (1.6-2.6); Potassium 4.6 mmol/L (3.5-5.1)
[2022-05-13 20:53] LABS: BUN/Creatinine Ratio 19.7
[2022-05-13 20:56] LABS: Bilirubin, Total 0.2 mg/dL (0.2-1.0); Total Protein 7.9 g/dL (6.4-8.2)
[2022-05-14] MEDS ORDERED: APIXABAN 2.5 MG TAB PO ONE (03:30)
[2022-05-14] MEDS ORDERED: hydrALAZINE HCL 20 MG/ML VL IV PRN (03:30)
[2022-05-14] MEDS ORDERED: ONDANSETRON HCL 4 MG/2 ML VIAL IV PRN (03:30)
[2022-05-14] MEDS ORDERED: DOCUSATE SOD 100 MG CAP PO PRN (03:30)
[2022-05-14] MEDS ORDERED: ACETAMINOPHEN 325 MG TAB PO PRN (03:30)
[2022-05-14] MEDS ORDERED: MORPHINE SULFATE INJ 2 MG/ml SYRG IV PRN (06:00)
[2022-05-14] MEDS ORDERED: NITROGLYCERIN 0.4 MG SL TAB SL PRN (06:00)
[2022-05-14] MEDS: SODIUM CHLORIDE 0.9% 1,000 ML IV SCH ×3 (06:25→12:52)
[2022-05-14 08:42] LABS: Basophils # (auto) 0 10 ^3/uL (0-0.2); Basophils % (auto) 0.5 % (0.0-2.0); Eosinophils # (auto) 0.2 10 ^3/uL (0-0.8); Eosinophils % (auto) 3.2 % (0.0-7.0); Hematocrit 41.2 % (41.0-53.0); Hemoglobin 13.7 g/dL (13.5-17.5); Lymphocytes # (auto) 1.6 10 ^3/uL (0.4-5.4); Lymphocytes % (auto) 27.9 % (10.0-50.0); Mean Corpuscular Hemoglobin 30.4 pg (28.0-32.0); Mean Corpuscular Hgb Conc. 33.2 g/dL (32.0-36.0); Mean Corpuscular Volume 91.4 fL (80.0-100.0); Monocytes # (auto) 0.4 10 ^3/uL (0-1.3); Monocytes % (auto) 7.7 % (0.0-12.0); Neutrophils # (auto) 3.4 10 ^3/uL (1.6-8.6); Neutrophils % (auto) 60.7 % (37.0-80.0); Red Blood Cells 4.51 10^6/uL (4.5-5.90); Red Cell Distribution Width 13.8 % (11.8-14.3); White Blood Cell 5.6 10^3/uL (4.4-10.8)
[2022-05-14 08:54] LABS: Albumin 3.4 g/dL (3.4-5.0); Calcium 8.6 mg/dL (8.5-10.1); Potassium 4.1 mmol/L (3.5-5.1)
[2022-05-14 08:57] LABS: Bilirubin, Total 0.4 mg/dL (0.2-1.0); Total Protein 7.5 g/dL (6.4-8.2)
[2022-05-14] MEDS: FAMOTIDINE (10MG/ML) 2ML VL IV SCH ×2 (10:29→10:38)
[2022-05-14] MEDS: ASPirin 81 mg TAB PO SCH (10:29)
[2022-05-14] MEDS: LISINOPRIL 5 MG TAB PO SCH ×2 (10:32→10:40)
[2022-05-14] MEDS ORDERED: METO25TA5 PO (12:40)
[2022-05-14] MEDS ORDERED: GABA300C10 PO (12:40)
[2022-05-14 23:27] LABS: Urine Bacteria NONE SEEN /hpf (None Seen); Urine Blood Negative /uL (Negative); Urine Specific Gravity 1.011 (1.001-1.035); Urine WBC <1 /hpf (0 - 3)
[2022-05-15 03:44] LABS: Basophils # (auto) 0 10 ^3/uL (0-0.2); Basophils % (auto) 0.5 % (0.0-2.0); Eosinophils # (auto) 0.1 10 ^3/uL (0-0.8); Hemoglobin 14.6 g/dL (13.5-17.5); Lymphocytes % (auto) 32.7 % (10.0-50.0); Mean Corpuscular Hemoglobin 30.4 pg (28.0-32.0); Mean Corpuscular Hgb Conc. 33.2 g/dL (32.0-36.0); Mean Corpuscular Volume 91.5 fL (80.0-100.0); Monocytes # (auto) 0.4 10 ^3/uL (0-1.3); Monocytes % (auto) 6.9 % (0.0-12.0); Neutrophils # (auto) 3.5 10 ^3/uL (1.6-8.6); Neutrophils % (auto) 57.9 % (37.0-80.0); Nucleated Red Blood Cells % 0.1 %; Red Blood Cells 4.81 10^6/uL (4.5-5.90); Red Cell Distribution Width 13.7 % (11.8-14.3)
[2022-05-15 04:03] LABS: Albumin 3.4 g/dL (3.4-5.0); Calcium 8.6 mg/dL (8.5-10.1); Potassium 4.1 mmol/L (3.5-5.1)
[2022-05-15 04:07] LABS: BUN/Creatinine Ratio 15.2; Bilirubin, Total 0.6 mg/dL (0.2-1.0); Total Protein 7.8 g/dL (6.4-8.2)
[2022-05-15] MEDS: HYDROcodone-ACET 5/325MG TAB PO PRN ×3 (06:08→21:38)
[2022-05-15] MEDS: ASPirin 81 mg TAB PO SCH (10:46)
[2022-05-15 16:37] LABS: Alcohol, Urine < 3.0 mg/dL (0-10); Amphetamine Screen, Urine NEGATIVE (NEGATIVE); Barbiturate Scree,Urine NEGATIVE (NEGATIVE); Benzodiazephine Screen, Urine NEGATIVE (NEGATIVE); Cannabinoid Screen, Urine NEGATIVE (NEGATIVE); Cocaine Screen, Urine NEGATIVE (NEGATIVE); Opiate Scree,Urine NEGATIVE (NEGATIVE); Phencyclidine Screen, Urine NEGATIVE (NEGATIVE)
[2022-05-15 16:51] VITALS: BP 133/82
[2022-05-15 22:00] VITALS: BP 106/59
[2022-05-15] MEDS ORDERED: ATORVASTATIN 20 MG TAB PO SCH (22:00)
[2022-05-16 05:00] VITALS: BP 113/71
[2022-05-16 05:25] LABS: Calcium 8.6 mg/dL (8.5-10.1); Magnesium 2.4 mg/dL (1.6-2.6); Potassium 4.2 mmol/L (3.5-5.1)
[2022-05-16 05:27] LABS: BUN/Creatinine Ratio 17.3
[2022-05-16] MEDS: SODIUM CHLORIDE 0.9% 1,000 ML IV SCH (05:30)
[2022-05-16 09:00] VITALS: BP 112/55
[2022-05-16] MEDS: ASPirin 81 mg TAB PO SCH (09:19)
[2022-05-16] MEDS: LISINOPRIL 5 MG TAB PO SCH (09:20)
[2022-05-16] MEDS ORDERED: PANTOPRAZOLE 40 MG TAB PO SCH (10:00)
[2022-05-16 13:00] VITALS: BP 108/44
[2022-05-16 15:50] VITALS: BP 112/55
[2022-05-16 16:44] VITALS: BP 133/70
== END 2022-05-16 18:22 | disposition home or self-care (01) | DRG 308 ==
LOC: ER 18:51 → TELE 05-14 05:52 → TELE-WESTW 05-15 14:50
PROVIDERS: ADMIT Nurse Practitioner Family; ATTEND Internal Medicine
PROC: 4B02XSZ Measurement of Cardiac Pacemaker, External Approach (ICD-10-PCS; principal; 2022-05-15)
DX: T82.111A Breakdown (mechanical) of cardiac pulse generator (battery), initial encounter (principal); N17.0 Acute kidney failure with tubular necrosis; N18.30 Chronic kidney disease, stage 3 unspecified; I48.0 Paroxysmal atrial fibrillation; E78.5 Hyperlipidemia, unspecified; E66.9 Obesity, unspecified; G89.29 Other chronic pain; K21.9 Gastro-esophageal reflux disease without esophagitis; M54.50 Low back pain, unspecified; I12.9 Hypertensive chronic kidney disease with stage 1 through stage 4 chronic kidney disease, or unspecified chronic kidney disease; Y71.2 Prosthetic and other implants, materials and accessory cardiovascular devices associated with adverse incidents; Y92.89 Other specified places as the place of occurrence of the external cause; Z82.49 Family history of ischemic heart disease and other diseases of the circulatory system; Z83.3 Family history of diabetes mellitus; Z95.0 Presence of cardiac pacemaker; Z20.822 Contact with and (suspected) exposure to COVID-19; Z68.29 Body mass index [BMI] 29.0-29.9, adult
CPT/HCPCS: 36415; 71045; 72131; 74176; 76775; 80048; 80053; 80307; 81001; 83735; 83880; 84484; 85025; 93005; 96361; 96374; G0378; J3490

== ENCOUNTER 2023-04-04 10:50 | Emergency (ER) | payer MEDICARE, OTHER ==
[~2023-04-04] VITALS: Ht 170.2 cm; Wt 120.0 kg
[~2023-04-04 10:50] MED LIST changes: +GABA-1250 PO; +METO25TA5 PO
[2023-04-04 13:25] LABS: Basophils # (auto) 0 10 ^3/uL (0-0.2); Basophils % (auto) 0.9 % (0.0-2.0); Eosinophils # (auto) 0.1 10 ^3/uL (0-0.8); Hematocrit 40.8 % (41.0-53.0); Hemoglobin 13.7 g/dL (13.5-17.5); Lymphocytes # (auto) 1.3 10 ^3/uL (0.4-5.4); Lymphocytes % (auto) 26.9 % (10.0-50.0); Mean Corpuscular Hemoglobin 31.1 pg (28.0-32.0); Mean Corpuscular Hgb Conc. 33.7 g/dL (32.0-36.0); Mean Corpuscular Volume 92.4 fL (80.0-100.0); Monocytes # (auto) 0.3 10 ^3/uL (0-1.3); Monocytes % (auto) 6.7 % (0.0-12.0); Neutrophils % (auto) 62.5 % (37.0-80.0); Nucleated Red Blood Cells % 0.1 %; Red Blood Cells 4.41 10^6/uL (4.5-5.90); Red Cell Distribution Width 14.6 % (11.8-14.3); White Blood Cell 4.8 10^3/uL (4.4-10.8)
[2023-04-04 13:49] LABS: Albumin 3.7 g/dL (3.4-5.0); Calcium 8.7 mg/dL (8.5-10.1)
[2023-04-04 14:06] LABS: Bilirubin, Total 0.6 mg/dL (0.2-1.0); Total Protein 7.9 g/dL (6.4-8.2)
[2023-04-04] MEDS ORDERED: HYDROcodone-ACET 10/325MG TAB PO ONE (16:15)
[2023-04-04] MEDS ORDERED: BACL5TAB2 PO (16:18)
[2023-04-04] MEDS ORDERED: LIDO5DIS21 TOP (16:18)
[2023-04-04 16:50] VITALS: BP 127/60
== END 2023-04-04 17:22 | disposition home or self-care (01) ==
LOC: ER 10:50
DX: S76.011A Strain of muscle, fascia and tendon of right hip, initial encounter (principal); M54.41 Lumbago with sciatica, right side; M62.830 Muscle spasm of back; E11.9 Type 2 diabetes mellitus without complications; I10 Essential (primary) hypertension; X50.1XXA Overexertion from prolonged static or awkward postures, initial encounter; Y93.89 Activity, other specified; Y92.89 Other specified places as the place of occurrence of the external cause; Y99.8 Other external cause status
CPT/HCPCS: 36415; 72131; 74176; 80053; 85025

== ENCOUNTER 2023-06-04 15:21 | Inpatient (IN) | payer MEDICARE, OTHER ==
[~2023-06-04] VITALS: Ht 180.3 cm; Wt 121.7 kg
[~2023-06-04 15:21] MED LIST changes: +BACL5TAB2 PO; +LIDO5DIS21 TOP
[2023-06-04] MEDS ORDERED: SODIUM CHLORIDE 0.9% 500 ML IVB ONE (15:45)
[2023-06-04 16:00] LABS: Basophils # (auto) 0 10 ^3/uL (0-0.2); Basophils % (auto) 0.8 % (0.0-2.0); Eosinophils # (auto) 0.1 10 ^3/uL (0-0.8); Eosinophils % (auto) 3.2 % (0.0-7.0); Hematocrit 37.6 % (41.0-53.0); Hemoglobin 12.4 g/dL (13.5-17.5); Lymphocytes # (auto) 1.3 10 ^3/uL (0.4-5.4); Mean Corpuscular Hemoglobin 30.8 pg (28.0-32.0); Mean Corpuscular Volume 93.3 fL (80.0-100.0); Monocytes # (auto) 0.3 10 ^3/uL (0-1.3); Monocytes % (auto) 6.6 % (0.0-12.0); Neutrophils # (auto) 2.8 10 ^3/uL (1.6-8.6); Neutrophils % (auto) 61.4 % (37.0-80.0); Red Blood Cells 4.03 10^6/uL (4.5-5.90); Red Cell Distribution Width 14.1 % (11.8-14.3); White Blood Cell 4.5 10^3/uL (4.4-10.8)
[2023-06-04] MEDS ORDERED: SODIUM CHLORIDE 0.9% 1,000 ML IV ONE (16:00)
[2023-06-04 16:23] LABS: Albumin 2.8 g/dL (3.4-5.0); Calcium 7.7 mg/dL (8.5-10.1); Potassium 4.1 mmol/L (3.5-5.1)
[2023-06-04 16:27] LABS: Bilirubin, Total 0.4 mg/dL (0.2-1.0); Total Protein 5.8 g/dL (6.4-8.2)
[2023-06-04 16:28] LABS: Magnesium 2.5 mg/dL (1.6-2.6)
[2023-06-04 16:30] LABS: Blood Alcohol < 3.0 mg/dL (<10)
[2023-06-04 16:49] LABS: INR 1.09 (0.9-1.15); Partial Thromboplastin Time 29.7 SEC (24.5-34.5); Prothrombin Time 11.4 sec (9.3-11.8)
[2023-06-04] MEDS ORDERED: IOHEXOL 300 MG/ML 100ML BOTTLE IJ ONE (17:25)
[2023-06-04 17:30] VITALS: PULSE 68; RESP 16; O2SAT 94
[2023-06-04 21:21] VITALS: PULSE 69; RESP 12; O2SAT 99
[2023-06-05] MEDS ORDERED: NITROGLYCERIN 0.4 MG SL TAB SL PRN (01:45)
[2023-06-05] MEDS ORDERED: ACETAMINOPHEN 325 MG TAB PO PRN (01:45)
[2023-06-05] MEDS ORDERED: ONDANSETRON HCL 4 MG/2 ML VIAL IV PRN (01:45)
[2023-06-05 08:00] VITALS: PULSE 64; RESP 12; O2SAT 97
[2023-06-05] MEDS ORDERED: ASPirin 81 mg TAB PO SCH (10:00)
[2023-06-05] MEDS: PANTOPRAZOLE 40 MG TAB PO SCH (10:39)
[2023-06-05] MEDS: APIXABAN 2.5 MG TAB PO SCH ×2 (10:39→22:06)
[2023-06-05] MEDS ORDERED: SODIUM CHLORIDE 0.9% 1,000 ML IV SCH (10:45)
[2023-06-05] MEDS ORDERED: SODIUM CHLORIDE 0.9% 500 ML IV ONE (10:45)
[2023-06-05] MEDS: SODIUM CHLORIDE 0.9% 1,000 ML IV SCH (14:15)
[2023-06-05 19:19] VITALS: PULSE 72; RESP 16; O2SAT 96
[2023-06-05] MEDS: ATORVASTATIN 20 MG TAB PO SCH (22:05)
[2023-06-05] MEDS: MORPHINE SULFATE INJ 2 MG/ml SYRG IV PRN (22:10)
[2023-06-05 23:14] VITALS: BP 122/102; PULSE 76; RESP 18; TEMP 98.3; O2SAT 99
[2023-06-05] MEDS ORDERED: MET25T PO (23:49)
[2023-06-05] MEDS ORDERED: DICL75TA4 PO (23:51)
[2023-06-06] VITALS (7 sets, daily range): BP systolic 119–127; BP diastolic 53–71; PULSE 60–93; RESP 15–20; TEMP 97.9–98.5; O2SAT 96–99
[2023-06-06 00:43] LABS: COVID19 ANTIGEN SOFIA FIA NEGATIVE (NEGATIVE)
[2023-06-06] MEDS: SODIUM CHLORIDE 0.9% 1,000 ML IV SCH ×2 (03:35→11:52)
[2023-06-06 05:34] LABS: Basophils # (auto) 0 10 ^3/uL (0-0.2); Basophils % (auto) 0.5 % (0.0-2.0); Eosinophils # (auto) 0.2 10 ^3/uL (0-0.8); Eosinophils % (auto) 3.1 % (0.0-7.0); Hematocrit 35.7 % (41.0-53.0); Hemoglobin 11.8 g/dL (13.5-17.5); Lymphocytes # (auto) 1.7 10 ^3/uL (0.4-5.4); Lymphocytes % (auto) 28.5 % (10.0-50.0); Mean Corpuscular Hemoglobin 30.9 pg (28.0-32.0); Mean Corpuscular Hgb Conc. 33.2 g/dL (32.0-36.0); Monocytes # (auto) 0.5 10 ^3/uL (0-1.3); Monocytes % (auto) 8.3 % (0.0-12.0); Neutrophils # (auto) 3.5 10 ^3/uL (1.6-8.6); Neutrophils % (auto) 59.6 % (37.0-80.0); Nucleated Red Blood Cells % 0.1 %; Red Blood Cells 3.84 10^6/uL (4.5-5.90); Red Cell Distribution Width 14.1 % (11.8-14.3); White Blood Cell 5.8 10^3/uL (4.4-10.8)
[2023-06-06 05:42] LABS: Albumin 2.9 g/dL (3.4-5.0); Calcium 7.9 mg/dL (8.5-10.1); Potassium 4.1 mmol/L (3.5-5.1)
[2023-06-06 05:47] LABS: BUN/Creatinine Ratio 16.4 (10.0-20.0); Bilirubin, Total 0.4 mg/dL (0.2-1.0); Total Protein 6.3 g/dL (6.4-8.2)
[2023-06-06] MEDS ORDERED: SODIUM CHLORIDE 0.9% 1,000 ML IV SCH (08:30)
[2023-06-06] MEDS: PANTOPRAZOLE 40 MG TAB PO SCH (10:18)
[2023-06-06] MEDS: APIXABAN 2.5 MG TAB PO SCH ×2 (10:19→21:55)
[2023-06-06 12:10] LABS: Urine Bacteria NONE SEEN /hpf (None Seen); Urine Blood Negative /uL (Negative); Urine Clarity Clear (Clear); Urine Color Colorless (Yellow); Urine Protein, UAD Negative (Negative); Urine Specific Gravity 1.011 (1.001-1.035); Urine Urobilinogen Normal (Negative); Urine WBC <1 /hpf (0 - 3); Urine pH 5.5 (5.0-8.0)
[2023-06-06] MEDS: ATORVASTATIN 20 MG TAB PO SCH (21:55)
[2023-06-07] VITALS (7 sets, daily range): BP systolic 115–132; BP diastolic 54–77; PULSE 60–67; RESP 18–60; TEMP 97.4–98.5; O2SAT 96–99
[2023-06-07] MEDS: SODIUM CHLORIDE 0.9% 1,000 ML IV SCH ×2 (03:40→08:30)
[2023-06-07 07:01] LABS: Basophils # (auto) 0 10 ^3/uL (0-0.2); Basophils % (auto) 0.5 % (0.0-2.0); Eosinophils # (auto) 0.2 10 ^3/uL (0-0.8); Eosinophils % (auto) 3.2 % (0.0-7.0); Hematocrit 37.1 % (41.0-53.0); Hemoglobin 12.3 g/dL (13.5-17.5); Lymphocytes # (auto) 1.6 10 ^3/uL (0.4-5.4); Lymphocytes % (auto) 31.7 % (10.0-50.0); Mean Corpuscular Hemoglobin 31.3 pg (28.0-32.0); Mean Corpuscular Hgb Conc. 33.1 g/dL (32.0-36.0); Mean Corpuscular Volume 94.5 fL (80.0-100.0); Monocytes # (auto) 0.4 10 ^3/uL (0-1.3); Monocytes % (auto) 8.2 % (0.0-12.0); Neutrophils # (auto) 2.9 10 ^3/uL (1.6-8.6); Neutrophils % (auto) 56.4 % (37.0-80.0); Red Blood Cells 3.93 10^6/uL (4.5-5.90); Red Cell Distribution Width 14.3 % (11.8-14.3); White Blood Cell 5.1 10^3/uL (4.4-10.8)
[2023-06-07 07:14] LABS: Potassium 3.8 mmol/L (3.5-5.1)
[2023-06-07 07:19] LABS: BUN/Creatinine Ratio 13.8 (10.0-20.0); Calcium 8.4 mg/dL (8.5-10.1)
[2023-06-07] MEDS: PANTOPRAZOLE 40 MG TAB PO SCH (08:29)
[2023-06-07] MEDS: APIXABAN 2.5 MG TAB PO SCH (08:29)
[2023-06-07] MEDS: MORPHINE SULFATE INJ 2 MG/ml SYRG IV PRN (10:52)
[2023-06-07] MEDS: ATORVASTATIN 20 MG TAB PO SCH (21:12)
[2023-06-08] VITALS (7 sets, daily range): BP systolic 127–151; BP diastolic 67–76; PULSE 60–88; RESP 18–20; TEMP 97.9–98.5; O2SAT 95–100
[2023-06-08] MEDS: HYDROcodone-ACET 5/325MG TAB PO PRN ×2 (00:58→10:57)
[2023-06-08 05:34] LABS: Calcium 8.1 mg/dL (8.5-10.1); Potassium 3.6 mmol/L (3.5-5.1)
[2023-06-08 05:36] LABS: BUN/Creatinine Ratio 13.5 (10.0-20.0)
[2023-06-08 05:40] LABS: Basophils # (auto) 0 10 ^3/uL (0-0.2); Basophils % (auto) 0.5 % (0.0-2.0); Eosinophils # (auto) 0.2 10 ^3/uL (0-0.8); Eosinophils % (auto) 3.5 % (0.0-7.0); Hematocrit 35.8 % (41.0-53.0); Hemoglobin 12.1 g/dL (13.5-17.5); Lymphocytes # (auto) 1.8 10 ^3/uL (0.4-5.4); Lymphocytes % (auto) 31.4 % (10.0-50.0); Mean Corpuscular Hemoglobin 31.5 pg (28.0-32.0); Mean Corpuscular Hgb Conc. 33.8 g/dL (32.0-36.0); Mean Corpuscular Volume 93.1 fL (80.0-100.0); Monocytes # (auto) 0.5 10 ^3/uL (0-1.3); Monocytes % (auto) 8.2 % (0.0-12.0); Neutrophils # (auto) 3.2 10 ^3/uL (1.6-8.6); Neutrophils % (auto) 56.4 % (37.0-80.0); Nucleated Red Blood Cells % 0.1 %; Red Blood Cells 3.84 10^6/uL (4.5-5.90); Red Cell Distribution Width 13.9 % (11.8-14.3); White Blood Cell 5.7 10^3/uL (4.4-10.8)
[2023-06-08] MEDS: PANTOPRAZOLE 40 MG TAB PO SCH (10:09)
[2023-06-08] MEDS ORDERED: FUROSEMIDE 20 MG/2 ML VIAL IV ONE (11:15)
[2023-06-08] MEDS: ATORVASTATIN 20 MG TAB PO SCH (21:15)
[2023-06-09] VITALS (8 sets, daily range): BP systolic 101–124; BP diastolic 59–66; PULSE 60–91; RESP 17–20; TEMP 98–98.6; O2SAT 96–98
[2023-06-09 06:25] LABS: Basophils # (auto) 0 10 ^3/uL (0-0.2); Basophils % (auto) 0.8 % (0.0-2.0); Eosinophils # (auto) 0.2 10 ^3/uL (0-0.8); Eosinophils % (auto) 2.9 % (0.0-7.0); Hematocrit 38.1 % (41.0-53.0); Hemoglobin 13.1 g/dL (13.5-17.5); Lymphocytes # (auto) 1.6 10 ^3/uL (0.4-5.4); Lymphocytes % (auto) 29.8 % (10.0-50.0); Mean Corpuscular Hemoglobin 31.6 pg (28.0-32.0); Mean Corpuscular Hgb Conc. 34.3 g/dL (32.0-36.0); Mean Corpuscular Volume 92.2 fL (80.0-100.0); Monocytes # (auto) 0.5 10 ^3/uL (0-1.3); Monocytes % (auto) 8.6 % (0.0-12.0); Neutrophils # (auto) 3.1 10 ^3/uL (1.6-8.6); Neutrophils % (auto) 57.9 % (37.0-80.0); Nucleated Red Blood Cells % 0.1 %; Red Blood Cells 4.14 10^6/uL (4.5-5.90); White Blood Cell 5.4 10^3/uL (4.4-10.8)
[2023-06-09 06:29] LABS: Potassium 3.9 mmol/L (3.5-5.1)
[2023-06-09 06:34] LABS: BUN/Creatinine Ratio 13.5 (10.0-20.0); Calcium 8.7 mg/dL (8.5-10.1)
[2023-06-09] MEDS: PANTOPRAZOLE 40 MG TAB PO SCH (09:35)
[2023-06-09] MEDS ORDERED: ACETYLCYSTEINE ORAL for CIN 20%(200MG/ML) 4ML PO ONE (11:15)
[2023-06-09] MEDS: ACETYLCYSTEINE ORAL for CIN 20%(200MG/ML) 4ML PO SCH ×2 (15:07→22:16)
[2023-06-09] MEDS ORDERED: IOHEXOL 350 MG/ML 100ML IJ ONE (15:08)
[2023-06-09] MEDS: ATORVASTATIN 20 MG TAB PO SCH (22:16)
[2023-06-10] VITALS (11 sets, daily range): BP systolic 101–119; BP diastolic 49–71; PULSE 66–91; RESP 18–22; TEMP 98.1–98.6; O2SAT 97–99
[2023-06-10 07:45] LABS: Calcium 8.1 mg/dL (8.5-10.1); Potassium 3.5 mmol/L (3.5-5.1)
[2023-06-10 07:49] LABS: BUN/Creatinine Ratio 17.7 (10.0-20.0)
[2023-06-10] MEDS: PANTOPRAZOLE 40 MG TAB PO SCH (09:11)
[2023-06-10] MEDS: ACETYLCYSTEINE ORAL for CIN 20%(200MG/ML) 4ML PO SCH ×2 (09:16→23:25)
[2023-06-10] MEDS: MORPHINE SULFATE INJ 2 MG/ml SYRG IV PRN ×2 (15:30)
[2023-06-10] MEDS: ATORVASTATIN 20 MG TAB PO SCH (23:25)
[2023-06-11 05:00] VITALS: BP 106/66; PULSE 77; RESP 19; TEMP 97.6; O2SAT 100
[2023-06-11 06:35] LABS: Basophils # (auto) 0 10 ^3/uL (0-0.2); Basophils % (auto) 0.6 % (0.0-2.0); Eosinophils # (auto) 0.2 10 ^3/uL (0-0.8); Eosinophils % (auto) 2.7 % (0.0-7.0); Hematocrit 40.1 % (41.0-53.0); Hemoglobin 13.2 g/dL (13.5-17.5); Lymphocytes # (auto) 1.6 10 ^3/uL (0.4-5.4); Lymphocytes % (auto) 26.6 % (10.0-50.0); Mean Corpuscular Hemoglobin 30.7 pg (28.0-32.0); Mean Corpuscular Volume 93.2 fL (80.0-100.0); Monocytes # (auto) 0.5 10 ^3/uL (0-1.3); Monocytes % (auto) 7.9 % (0.0-12.0); Neutrophils # (auto) 3.8 10 ^3/uL (1.6-8.6); Neutrophils % (auto) 62.2 % (37.0-80.0); Nucleated Red Blood Cells % 0.1 %; Red Cell Distribution Width 14.3 % (11.8-14.3); White Blood Cell 6.1 10^3/uL (4.4-10.8)
[2023-06-11 07:05] LABS: Calcium 8.3 mg/dL (8.5-10.1); Potassium 3.5 mmol/L (3.5-5.1)
[2023-06-11 07:07] LABS: BUN/Creatinine Ratio 13.7 (10.0-20.0)
[2023-06-11 08:00] VITALS: PULSE 65
[2023-06-11 09:00] VITALS: BP 116/57; PULSE 64; RESP 22; TEMP 97.8; O2SAT 100
[2023-06-11] MEDS: PANTOPRAZOLE 40 MG TAB PO SCH (10:14)
[2023-06-11] MEDS: HYDROcodone-ACET 5/325MG TAB PO PRN (10:14)
[2023-06-11 10:33] VITALS: BP 138/82
== END 2023-06-11 11:55 | disposition home or self-care (01) | DRG 312 ==
LOC: EDBD 15:21 → ER 15:21 → TELE 06-05 01:37 → TELE-EAST 06-05 23:07
PROVIDERS: ADMIT Internal Medicine; ATTEND Student in an Organized Health Care Education/Training Program
DX: I95.1 Orthostatic hypotension (principal); D68.59 Other primary thrombophilia; N17.9 Acute kidney failure, unspecified; E44.1 Mild protein-calorie malnutrition; I49.5 Sick sinus syndrome; N18.9 Chronic kidney disease, unspecified; Z20.822 Contact with and (suspected) exposure to COVID-19; E66.01 Morbid (severe) obesity due to excess calories; I48.91 Unspecified atrial fibrillation; E11.22 Type 2 diabetes mellitus with diabetic chronic kidney disease; I12.9 Hypertensive chronic kidney disease with stage 1 through stage 4 chronic kidney disease, or unspecified chronic kidney disease; K58.9 Irritable bowel syndrome, unspecified; K21.9 Gastro-esophageal reflux disease without esophagitis; Z68.37 Body mass index [BMI] 37.0-37.9, adult; Z83.3 Family history of diabetes mellitus; Z82.49 Family history of ischemic heart disease and other diseases of the circulatory system
CPT/HCPCS: 36415; 70450; 71045; 71260; 71275; 74176; 74177; 80048; 80053; 80320; 81001; 83036; 83735; 83880; 84484; 84550; 85025; 85379; 85610; 85730; 87426; 93005; 93306; 93886; 93970; 97110; 97116; 97163; 97530; G0378

== ENCOUNTER 2023-10-15 13:38 | Inpatient (IN) | payer MEDICARE, OTHER ==
[~2023-10-15] VITALS: Ht 33 cm; Wt 116.6 kg
[~2023-10-15 13:38] MED LIST changes: +DICL75TA4 PO; +MET25T PO
[2023-10-15] MEDS ORDERED: SODIUM CHLORIDE 0.9% 500 ML IV ONE (16:15)
[2023-10-15 17:02] LABS: Basophils # (auto) 0 10 ^3/uL (0-0.2); Basophils % (auto) 0.3 % (0.0-2.0); Eosinophils # (auto) 0.1 10 ^3/uL (0-0.8); Eosinophils % (auto) 0.8 % (0.0-7.0); Hematocrit 36.2 % (41.0-53.0); Lymphocytes # (auto) 1.5 10 ^3/uL (0.4-5.4); Lymphocytes % (auto) 17.3 % (10.0-50.0); Mean Corpuscular Hemoglobin 30.9 pg (28.0-32.0); Mean Corpuscular Hgb Conc. 33.1 g/dL (32.0-36.0); Mean Corpuscular Volume 93.4 fL (80.0-100.0); Monocytes # (auto) 0.3 10 ^3/uL (0-1.3); Monocytes % (auto) 3.5 % (0.0-12.0); Neutrophils # (auto) 6.9 10 ^3/uL (1.6-8.6); Neutrophils % (auto) 78.1 % (37.0-80.0); Red Blood Cells 3.88 10^6/uL (4.5-5.90); Red Cell Distribution Width 13.8 % (11.8-14.3); White Blood Cell 8.9 10^3/uL (4.4-10.8)
[2023-10-15 17:15] LABS: Alanine Aminotransferase 23 U/L (7-40); Albumin 4.1 g/dL (3.2-4.8); Alkaline Phosphatase 71 U/L (46-116); Anion Gap 7 (5-15); Aspartate Aminotransferase 20 U/L (13-40); BUN/Creatinine Ratio 38.4 (10.0-20.0); Blood Urea Nitrogen 71 mg/dL (9-23); Calcium 8.5 mg/dL (8.7-10.4); Carbon Dioxide 24 mmol/L (20-30); Chloride 107 mmol/L (98-107); Glucose 100 mg/dL (74-106); Magnesium 2.6 mg/dL (1.6-2.6); Sodium 138 mmol/L (136-145)
[2023-10-15 17:16] LABS: Bilirubin, Total 0.5 mg/dL (0.2-1.0); Total Protein 6.7 g/dL (5.7-8.2)
[2023-10-15 18:21] LABS: COVID19 ANTIGEN SOFIA FIA NEGATIVE (NEGATIVE)
[2023-10-15 18:22] LABS: Rapid Influenza A Negative (Negative); Rapid Influenza B Negative (Negative)
[2023-10-15] MEDS ORDERED: ONDANSETRON HCL 4 MG/2 ML VIAL IV ONE (21:00)
[2023-10-15] MEDS ORDERED: MORPHINE SULFATE INJ 2 MG/ml SYRG IV ONE (21:00)
[2023-10-15] MEDS ORDERED: ATOR20TA50 PO (21:23)
[2023-10-15] MEDS ORDERED: ACETAMINOPHEN 325 MG TAB PO PRN (21:30)
[2023-10-15] MEDS ORDERED: NITROGLYCERIN 0.4 MG SL TAB SL PRN (21:30)
[2023-10-15] MEDS ORDERED: ONDANSETRON HCL 4 MG/2 ML VIAL IV PRN (21:30)
[2023-10-15] MEDS ORDERED: MORPHINE SULFATE INJ 2 MG/ml SYRG IV PRN (21:30)
[2023-10-15] MEDS ORDERED: DOCUSATE SOD 100 MG CAP PO PRN (21:30)
[2023-10-15] MEDS ORDERED: HYDROcodone-ACET 5/325MG TAB PO PRN (21:30)
[2023-10-15] MEDS: SODIUM CHLORIDE 0.9% 1,000 ML IV SCH (21:48)
[2023-10-15] MEDS: PANTOPRAZOLE 40 MG TAB PO SCH (21:48)
[2023-10-15] MEDS ORDERED: METOPROLOL TARTRATE 25 MG TAB PO SCH (22:00)
[2023-10-15] MEDS: APIXABAN 2.5 MG TAB PO SCH (22:37)
[2023-10-16] VITALS (7 sets, daily range): BP systolic 98–109; BP diastolic 47–58; PULSE 68–79; RESP 15–20; TEMP 97.5–98.2; O2SAT 98–100
[2023-10-16] MEDS: SODIUM CHLORIDE 0.9% 1,000 ML IV SCH ×3 (05:21→22:00)
[2023-10-16 05:37] LABS: Basophils # (auto) 0 10 ^3/uL (0-0.2); Basophils % (auto) 0.3 % (0.0-2.0); Eosinophils # (auto) 0.1 10 ^3/uL (0-0.8); Eosinophils % (auto) 1.8 % (0.0-7.0); Hematocrit 30.2 % (41.0-53.0); Hemoglobin 10.1 g/dL (13.5-17.5); Lymphocytes # (auto) 2.2 10 ^3/uL (0.4-5.4); Lymphocytes % (auto) 25.8 % (10.0-50.0); Mean Corpuscular Hemoglobin 31.2 pg (28.0-32.0); Mean Corpuscular Hgb Conc. 33.3 g/dL (32.0-36.0); Mean Corpuscular Volume 93.6 fL (80.0-100.0); Monocytes # (auto) 0.4 10 ^3/uL (0-1.3); Monocytes % (auto) 4.5 % (0.0-12.0); Neutrophils # (auto) 5.7 10 ^3/uL (1.6-8.6); Neutrophils % (auto) 67.6 % (37.0-80.0); Red Blood Cells 3.23 10^6/uL (4.5-5.90); Red Cell Distribution Width 14.3 % (11.8-14.3); White Blood Cell 8.4 10^3/uL (4.4-10.8)
[2023-10-16 05:38] LABS: Alanine Aminotransferase 19 U/L (7-40); Albumin 3.8 g/dL (3.2-4.8); Alkaline Phosphatase 59 U/L (46-116); Anion Gap 9 (5-15); Aspartate Aminotransferase 20 U/L (13-40); BUN/Creatinine Ratio 36.1 (10.0-20.0); Calcium 8.1 mg/dL (8.7-10.4); Carbon Dioxide 21 mmol/L (20-30); Chloride 109 mmol/L (98-107); Glucose 100 mg/dL (74-106); Potassium 4.8 mmol/L (3.5-5.1); Sodium 139 mmol/L (136-145)
[2023-10-16 05:39] LABS: Bilirubin, Total 0.5 mg/dL (0.2-1.0); Total Protein 6.3 g/dL (5.7-8.2)
[2023-10-16 06:09] LABS: Blood Urea Nitrogen 61 mg/dL (9-23)
[2023-10-16] MEDS ORDERED: METOPROLOL TARTRATE 25 MG TAB PO SCH (10:00)
[2023-10-16] MEDS: ASPirin-EC 81 mg tab PO SCH (10:54)
[2023-10-16] MEDS: GABAPENTIN 300 MG CAP PO SCH (10:54)
[2023-10-16] MEDS: ATORVASTATIN 20 MG TAB PO SCH (10:55)
[2023-10-16] MEDS: PANTOPRAZOLE 40 MG TAB PO SCH ×2 (10:55→22:00)
[2023-10-16] MEDS: APIXABAN 2.5 MG TAB PO SCH ×2 (10:55→22:00)
[2023-10-16] MEDS ORDERED: MAGN400T40 OR (14:35)
[2023-10-16] MEDS ORDERED: MELA3TAB27 PO (14:35)
[2023-10-16] MEDS ORDERED: MONT-8 PO (14:35)
[2023-10-17 05:00] VITALS: BP 116/80; PULSE 79; RESP 17; TEMP 98.1; O2SAT 99
[2023-10-17] MEDS: SODIUM CHLORIDE 0.9% 1,000 ML IV SCH ×3 (06:37→23:30)
[2023-10-17 08:00] VITALS: PULSE 79
[2023-10-17] MEDS: ATORVASTATIN 20 MG TAB PO SCH (09:11)
[2023-10-17] MEDS: APIXABAN 2.5 MG TAB PO SCH ×2 (09:11→22:15)
[2023-10-17] MEDS: PANTOPRAZOLE 40 MG TAB PO SCH ×2 (09:11→22:15)
[2023-10-17] MEDS: ASPirin-EC 81 mg tab PO SCH (09:11)
[2023-10-17] MEDS: GABAPENTIN 300 MG CAP PO SCH (09:11)
[2023-10-17 09:35] VITALS: BP 109/54; PULSE 76; RESP 20; TEMP 98.3; O2SAT 94
[2023-10-17 12:36] VITALS: BP 113/65; PULSE 72; RESP 20; TEMP 98; O2SAT 99
[2023-10-17 16:53] VITALS: BP 111/60; PULSE 77; RESP 20; TEMP 98.1; O2SAT 99
[2023-10-17 20:00] VITALS: PULSE 79
[2023-10-17] MEDS: TEMAZEPAM 15 MG CAP PO ONE ×2 (23:06→23:14)
[2023-10-18 05:00] VITALS: BP 117/60; PULSE 64; RESP 18; TEMP 97.6; O2SAT 99
[2023-10-18 06:37] LABS: Urine Bacteria NONE SEEN /hpf (None Seen); Urine Blood Negative /uL (Negative); Urine Clarity Clear (Clear); Urine Color Colorless (Yellow); Urine Protein, UAD Negative (Negative); Urine Specific Gravity 1.013 (1.001-1.035); Urine Urobilinogen Normal (Negative); Urine WBC 1 /hpf (0 - 3)
[2023-10-18 08:00] VITALS: BP 102/54; PULSE 70; PULSE 77; RESP 18
[2023-10-18 08:01] VITALS: BP 113/59
[2023-10-18 08:02] VITALS: BP 108/53
[2023-10-18 08:32] VITALS: BP 109/49; PULSE 77; RESP 18; TEMP 98; O2SAT 97
[2023-10-18 09:32] LABS: Hepatitis B Surface Antigen Negative (Negative)
[2023-10-18 09:53] LABS: Hepatitis C Antibody Negative (Negative)
[2023-10-18] MEDS: GABAPENTIN 300 MG CAP PO SCH (10:00)
[2023-10-18] MEDS: PANTOPRAZOLE 40 MG TAB PO SCH (10:00)
[2023-10-18] MEDS: ATORVASTATIN 20 MG TAB PO SCH (10:00)
[2023-10-18] MEDS: APIXABAN 2.5 MG TAB PO SCH (10:00)
[2023-10-18] MEDS: ASPirin-EC 81 mg tab PO SCH (10:00)
[2023-10-18 12:27] VITALS: BP 134/88; PULSE 76; RESP 20; TEMP 97.3; O2SAT 100
== END 2023-10-18 16:25 | disposition home or self-care (01) | DRG 312 ==
LOC: ER 13:38 → EDBD 13:38 → TELE 21:23 → TELE-WESTW 10-16 09:16
PROVIDERS: ADMIT Nurse Practitioner Family; ATTEND Family Medicine
PROC: 4B02XSZ Measurement of Cardiac Pacemaker, External Approach (ICD-10-PCS; principal; 2023-10-17)
DX: R55 Syncope and collapse (principal); D68.59 Other primary thrombophilia; Z68.45 Body mass index [BMI] 70 or greater, adult; N17.9 Acute kidney failure, unspecified; E66.01 Morbid (severe) obesity due to excess calories; E86.0 Dehydration; I49.5 Sick sinus syndrome; K58.9 Irritable bowel syndrome, unspecified; D63.1 Anemia in chronic kidney disease; E11.22 Type 2 diabetes mellitus with diabetic chronic kidney disease; I95.9 Hypotension, unspecified; R07.89 Other chest pain; Z20.822 Contact with and (suspected) exposure to COVID-19; E78.5 Hyperlipidemia, unspecified; I12.9 Hypertensive chronic kidney disease with stage 1 through stage 4 chronic kidney disease, or unspecified chronic kidney disease; I25.10 Atherosclerotic heart disease of native coronary artery without angina pectoris; I48.91 Unspecified atrial fibrillation; K21.9 Gastro-esophageal reflux disease without esophagitis; N18.9 Chronic kidney disease, unspecified; Z82.49 Family history of ischemic heart disease and other diseases of the circulatory system; Z79.01 Long term (current) use of anticoagulants; Z83.3 Family history of diabetes mellitus; Z88.6 Allergy status to analgesic agent; Z95.0 Presence of cardiac pacemaker
CPT/HCPCS: 36415; 70450; 71045; 80053; 81001; 83605; 83735; 83880; 84484; 85025; 85379; 86803; 87040; 87086; 87340; 87426; 87804; 96361; 96374; 96375; 96376; G0378; J2405

== ENCOUNTER → 2023-11-20 | Outpatient (CLI) | payer MEDICARE, OTHER ==
[~2023-11-20] MED LIST changes: +ATOR20TA50 PO; -ATOR40TA52 PO; -LEVO500T31 PO; +MAGN400T40 OR; +MELA3TAB27 PO; -MET25T PO; -METR500T PO; +MONT-8 PO
== END | disposition home or self-care (01) ==
LOC: Rad HDHVI 13:27
PROVIDERS: ATTEND Internal Medicine Cardiovascular Disease
DX: I11.9 Hypertensive heart disease without heart failure (principal); R42 Dizziness and giddiness
CPT/HCPCS: 93306

== ENCOUNTER → 2023-12-05 | Outpatient (CLI) | payer MEDICARE, OTHER ==
[~2023-12-05] VITALS: Ht 180.3 cm; Wt 117.9 kg
[~2023-12-05] MED LIST changes: +ADENOSINE 90 MG/30 ML INJ IV ONE; +ADENOSINE 99 MG in GIVE UN-DILUTED 0 ML IV ONE
== END | disposition home or self-care (01) ==
LOC: Rad HDHVI 13:09
PROVIDERS: ATTEND Internal Medicine Cardiovascular Disease
DX: R07.9 Chest pain, unspecified (principal); I49.5 Sick sinus syndrome; R55 Syncope and collapse; I10 Essential (primary) hypertension; E78.00 Pure hypercholesterolemia, unspecified; Z95.0 Presence of cardiac pacemaker; Z82.49 Family history of ischemic heart disease and other diseases of the circulatory system
CPT/HCPCS: 78452; 93005; 96374; 96375; A9500; J0153

== ENCOUNTER 2025-01-31 07:00 | Inpatient (IN) | payer MEDICARE, OTHER ==
[~2025-01-31] VITALS: Ht 185.4 cm; Wt 120.0 kg
[~2025-01-31 07:00] MED LIST changes: -ADENOSINE 90 MG/30 ML INJ IV ONE; -ADENOSINE 99 MG in GIVE UN-DILUTED 0 ML IV ONE; -ASPI325T4 PO; +ASPI325T6 PO; -SUCR1TAB22 PO; +SUCR1TAB31 PO
--- NOTE | 2025-01-31 07:38 | ED.PDOC ---
Epistaxis- HPI HPI Comments 74 year old male MARV presents to the ED with chief complaint of nose bleeding. Patient reports that he has been experiencing spontaneous, constant nose bleeding since earlier this morning with associated dizziness that has been present for a whole week. Patient relays that he is currently on blood thinners and was worried, so he called 911. Patient states the bleeding has stopped since onset. Patient denies any headache, N/V, blurred vision, trauma, or chest pain. Chief Complaint: Nose Bleed Time Seen by MD: 07:35 Primary Care Provider: Terry Reviewed Notes: Nurses Notes, Medications, Allergies Allergies: Coded Allergies: Ibuprofen (Verified Allergy, Intermediate, 10/15/23) Home Meds Active Scripts Lidocaine (LIDODERM 5% TOPICAL PATCH) 1 Patch Ph, 1 PATCH TOP DAILY, #30 PATCH 1 Refill as needed for pain Prov:DENISHA PEREZ Q PRINT DEVELOPER 04/04/23 Baclofen (Baclofen) 5 Mg Tab, 5 MG PO Q8HR, #15 TAB as needed for muscle spasm Prov:DENISHA PEREZ Q PRINT DEVELOPER 04/04/23 Sucralfate (CARAFATE) 1 Gm Tab, 1 GM PO BID for 30 Days, #60 TAB Prov:KYLIE WILSON MD 07/13/21 Pantoprazole Sodium Sesquihydr (Protonix) 40 Mg Tab, 40 MG PO BID for 30 Days, #60 TAB Prov:KYLIE WILSON MD 07/13/21 Reported Medications Magnesium Oxide (MAGNESIUM OXIDE) 400 Mg Tab, 500 MG OR, TAB 10/16/23 Melatonin (KP MELATONIN) 3 Mg Tab, 5 MG PO, TAB 10/16/23 Montelukast Sodium (MONTELUKAST SODIUM) 10 Mg Tab, 1 TAB PO DAILY, #30 TAB 5 Refills 10/16/23 Atorvastatin Calcium (ATORVASTATIN CALCIUM) 20 Mg Tab, 1 TAB PO DAILY 10/15/23 Diclofenac Sodium (Diclofenac Sodium Dr) 75 Mg Tab, 1 TAB PO BID 06/05/23 Gabapentin (Gabapentin) 300 Mg Cap, 300 MG PO BID, CAP 05/14/22 Metoprolol Tartrate (Metoprolol Tartrate) 25 Mg Tab, 25 MG PO BID for 30 Days, MG 05/14/22 Loratadine (Claritin) 10 Mg Tab, 1 TAB PO DAILY, #30 TAB 5 Refills 07/09/20 Lisinopril (Lisinopril) 5 Mg Tab, 5 MG PO DAILY, TAB 07/09/20 Lactulose (Generlac) 10 Gm/15 Ml Lexie, 10 GM PO TIDP PRN for FOR CONSTIPATION, ML 12/19/19 Docusate Sodium (Colace) 100 Mg Cap, 100 MG PO BID, CAP 12/19/19 Apixaban Base (ELIQUIS) 2.5 Mg Tab, 2.5 MG PO BID, TAB 12/19/19 Aspirin (Aspirin) 325 Mg Tab, 81 MG PO DAILY for 30 Days, MG 10/11/19 Tramadol Hcl (Tramadol Hcl) 50 Mg Tab, 50 MG PO Q4HPRN, MG 10/11/19 Information Source: Patient Mode of Arrival: EMS Severity: Bleeding Controlled Timing: Hours Duration: Since onset Prehospital treatment: None Location: Both [place] Mechanism: Spontaneous onset Circumstances: Unknown Use of: Coumadin History of: HTN Last Tetanus: Unknown Nose: Normal Nose: Intranasal/Septum: Blood Bleeding Status: Active bleeding Bleeding Amount: Mild Source: Both Associated signs and symptoms: None Past Medical History PAST MEDICAL HISTORY: AFIB, DM, HTN Surgical History: Pacemaker Family History Family History: Family hx of DM, Family hx of HTN Social History Smoker: Non-Smoker Alcohol: Denies ETOH Use Drugs: Denies Drug Use Lives In: Home Constitutional: denies: chills, diaphoresis, fatigue, fever, malaise, sweats, weakness, others EENTM: reports: nose bleeding; denies: blurred vision, double vision, ear bleeding, ear discharge, ear drainage, ear pain, ear ringing, eye pain, eye redness, hearing loss, mouth pain, mouth swelling, nasal discharge, nose congestion, nose pain, photophobia, tearing, throat pain, throat swelling, voice changes, others Respiratory: denies: cough, hemoptysis, orthopnea, SOB at rest, shortness of breath, SOB with excertion, stridor, wheezing, others Cardiovascular: denies: chest pain, dizzy spells, diaphoresis, Dyspnea on exertion, edema, irregular heart beat, left arm pain, lightheadedness, palpitations, PND, syncope, others Gastrointestinal: denies: abdomen distended, abdominal pain, blood streaked bowels, constipated, diarrhea, dysphagia, difficulty swallowing, hematemesis, melena, nausea, poor appetite, poor fluid intake, rectal bleeding, rectal pain, vomiting, others Genitourinary: denies: burning, dysuria, flank pain, frequency, hematuria, incontinence, penile discharge, penile sore, pain, testicle pain, testicle swelling, urgency, others Neurological: denies: dizziness, fainting, headache, left sided numbness, left sided weakness, numbness, paresthesia, pre-existing deficit, right sided numbness, right sided weakness, seizure, speech problems, tingling, tremors, weakness, others Musculoskeletal: denies: back pain, gout, joint pain, joint swelling, muscle pain, muscle stiffness, neck pain, others Integumetry: denies: bruises, change in color, change in hair/nails, dryness, laceration, lesions, lumps, rash, wounds, others Allergic/Immunocompromised: denies: Difficulty Healing, Frequent Infections, Hives, Itching, others Hematologic/Lymphatic: denies: anemia, blood clots, easy bleeding, easy bruising, swollen glands, others Endocrine: denies: excessive hunger, excessive sweating, excessive thirst, excessive urination, flushing, intolerance to cold, intolerance to heat, unexplained weight gain, unexplained weight loss, others Psychiatric: denies: anxiety, bipolar disorder, depression, hopeless, panic disorder, schizophrenia, sleepless, suicidal, others All Other Systems: Reviewed and Negative Physical Exam General Appearance: No Apparent Distress, Normal HEENT: Normal ENT Inspection, PERRL/EOMI, Other (Acute nosebleed from the right nostril was progress receive upon arrival but this time no bleeding noted) Neck: Full Range of Motion, Non-Tender, Normal, Normal Inspection Respiratory: Chest Non-Tender, Lungs Clear, No Accessory Muscle Use, No Respiratory Distress, Normal Breath Sounds Cardiovascular: No Edema, No JVD, No Murmur, No Gallop, Normal Peripheral Pulses, Regular Rate/Rhythm, Other (Patient is also complaining of chest pain) Breast Exam: Deferred Gastrointestinal: No Organomegaly, Non Tender, No Pulsatile Mass, Normal Bowel Sounds, Soft Genitalia: Deferred Pelvic: Deferred Rectal: Deferred Extremities: No calf tenderness, Normal capillary refill, Normal inspection, Normal range of motion, Non-tender, No pedal edema Musculoskeletal : Apperance: Normal Neurologic: Alert, stylist assistant II-XII nml as Tested, No Motor Deficits, Normal Affect, Normal Mood, No Sensory Deficits Cerebellar Function: Normal Reflexes: Normal Skin: Dry, Normal Color, Warm Peripheral Pulses: 1+ carotid (R), 1+ carotid (L) Lymphatic: No Adenopathy Was a procedure done? Was a procedure done?: Yes Sedation Sedation?: No Informed consent obtained: No Nasal Cautery and Pack Indicaton: Anterior epitaxis Silver nitrate: Right Hemostasis: Was obtained Location of packing: Right Packing: Other (Surgery sudden was packed on the right nostril bleeding is controlled) Informed consent obtained: No Risks/benefits/alt described: No Notes Patient accepted procedure well Differential Diagnosis (NSB) Differential Diagnosis: Anterior Nasal Bleed, Posterior Nasal Bleed, Hypertension, Coagulopathy X-Ray, Labs, Meds, VS Vital Signs Date Time Temp Pulse Resp B/P (MAP) Pulse Ox O2 Delivery O2 Flow Rate FiO2 01/31/25 16:00 98.3 69 17 129/62 (84) 97 98.3 01/31/25 15:00 73 01/31/25 14:00 69 17 124/68 (86) 100 01/31/25 12:00 67 01/31/25 12:00 67 17 127/67 (87) 100 01/31/25 10:00 71 17 107/74 (85) 100 01/31/25 10:00 65 16 100 Nasal Cannula* 2 28 01/31/25 08:15 98.2 65 17 116/69 (85) 97 98.2 01/31/25 07:40 75 01/31/25 07:19 98.0 74 16 135/75 (95) 98 98.0 Lab Test 01/31/25 15:10 01/31/25 08:08 Range/Units Urine Color Light-yellow Yellow Urine Clarity Clear Clear Urine pH 6.0 5.0-9.0 Urine Specific [place] 1.016 1.001-1.035 Urine Protein Negative Negative Urine Ketones Negative Negative Urine Blood Negative Negative /uL Urine Nitrite Negative Negative Urine Bilirubin Negative Negative Urine Urobilinogen Normal Negative mg/dL Urine Leukocyte Esterase Negative Negative /uL Urine RBC 2 0 - 3 /hpf Urine Microscopic WBC < 1 0-3 /HPF Urine Squamous Epithelial Cells None seen <5 /hpf Urine Bacteria None seen None Seen /hpf Urine Glucose Normal Normal mg/dL White Blood Count 4.8 4.4-10.8 10^3/uL Red Blood Count 4.57 4.5-5.90 10^6/uL Hemoglobin 14.6 13.5-17.5 g/dL Hematocrit 42.3 41.0-53.0 % Mean Corpuscular Volume 92.7 80.0-100.0 fL Mean Corpuscular Hemoglobin 32.0 28.0-32.0 pg Mean Corpuscular Hemoglobin Concent 34.5 32.0-36.0 g/dL Red Cell Distribution Width 14.3 11.8-14.3 % Platelet Count 198 140-450 10^3/uL Mean Platelet Volume 7.0 6.9-10.8 fL Neutrophils (%) (Auto) 57.4 37.0-80.0 % Lymphocytes (%) (Auto) 32.3 10.0-50.0 % Monocytes (%) (Auto) 7.5 0.0-12.0 % Eosinophils (%) (Auto) 2.4 0.0-7.0 % Basophils (%) (Auto) 0.4 0.0-2.0 % Neutrophils # (Auto) 2.7 1.6-8.6 10 ^3/uL Lymphocytes # (Auto) 1.5 0.4-5.4 10 ^3/uL Monocytes # (Auto) 0.4 0-1.3 10 ^3/uL Eosinophils # (Auto) 0.1 0-0.8 10 ^3/uL Basophils # (Auto) 0 0-0.2 10 ^3/uL Nucleated Red Blood Cells 0.0 % Prothrombin Time 11.2 9.3-11.8 sec Prothrombin Time INR 1.06 0.9-1.15 Activated Partial Thromboplast Time 32.6 24.5-34.5 SEC Sodium Level 137 136-145 mmol/L Potassium Level 3.7 3.5-5.1 mmol/L Chloride Level 101 98-107 mmol/L Carbon Dioxide Level 27 20-31 mmol/L Anion Gap 9 5-15 Blood Urea Nitrogen 23 9-23 mg/dL Creatinine 1.75 H 0.700-1.30 mg/dL Glomerular Filtration Rate Calc 40 >90 mL/min BUN/Creatinine Ratio 13.1 10.0-20.0 Serum Glucose 127 H 74-106 mg/dL Hemoglobin A1c 6.2 H <5.7 % A1C Calcium Level 9.5 8.7-10.4 mg/dL Magnesium Level 2.3 1.6-2.6 mg/dL Troponin I High Sensitivity 4 </=54 ng/L Current Medications Medications (Trade) Dose Ordered Sig/Gene Route Start Time Stop Time Status Last Admin Sodium Chloride 500 ml @ 500 mls/hr Q1H ONCE IV 01/31/25 08:00 01/31/25 08:59 DC 01/31/25 08:34 Sodium Chloride 1,000 ml @ 150 mls/hr Q6H40M ONCE IV 01/31/25 08:00 01/31/25 14:39 DC 01/31/25 08:33 FINDINGS: Left chest dual lead cardiac pacer device. The cardiac silhouette is enlarged. The lungs demonstrate patchy airspace opacities. The pulmonary vasculature is prominent. There is no pleural effusion.. There is no pneumothorax. Aortic atherosclerotic disease. IMPRESSION: 1. Cardiomegaly with pulmonary vascular congestion and bilateral patchy airspace opacities. X-Ray, Labs, Meds, VS Comment Course in the emergency department eventful patient came in complaining of nosebleed so chest pain and shortness of Blood pressure 135/75 patient is on Eliquis Chest x-ray shows cardiomegaly with pulmonary vascular congestion and also patchy airspace opacities CBC is negative INR 1 0.6 BNP GFR at 40 Blood sugar 127 Magnesium 2.3 Troponin for Patient will be admitted for further care Time of 1ST Reevaluation: 08:35 Reevaluation 1ST: Unchanged Time of 2ND Reevaluation: 11:28 Reevaluation 2ND: Improved Patient Education/Counseling: Diagnosis, Treatment, Prognosis Family Education/Counseling: Diagnosis, Treatment, Prognosis, No Family Present Departure 1 Departure Time of Disposition: 11:29 Impression: Primary Impression: Right-sided epistaxis Additional Impressions: Acute chest pain Pulmonary vascular congestion Cardiomegaly Bilateral pneumonia Disposition: 09 ADMITTED INPATIENT Condition: Serious Critical Care Note Critical Care Time?: No Stability Stability form required: Yes Heart Score Heart Score: Heart Score Response (Comments) Value History Slightly Suspicious 0 EKG Repolarization Disturb 1 Age >65 2 Risk Factors >3 or Hx ASHD 2 Troponin Normal limit 0 Total 5 I personally scribed for MIREYA HAYES MD ([email or web address]) on 01/31/25 at 07:37. Electronically submitted by Salvatore Ferguson ([email or web address]). I personally scribed for MIREYA HAYES MD ([email or web address]) on 01/31/25 at 07:48. Electronically submitted by Salvatore Ferguson ([email or web address]). I personally scribed for MIREYA HAYES MD ([email or web address]) on 01/31/25 at 10:22. Electronically submitted by Salvatore Ferguson ([email or web address]). MIREYA HAYES MD Jan 31, 2025 07:37
[2025-01-31 08:30] LABS: Basophils # (auto) 0 10 ^3/uL (0-0.2); Basophils % (auto) 0.4 % (0.0-2.0); Eosinophils # (auto) 0.1 10 ^3/uL (0-0.8); Eosinophils % (auto) 2.4 % (0.0-7.0); Hematocrit 42.3 % (41.0-53.0); Hemoglobin 14.6 g/dL (13.5-17.5); Lymphocytes # (auto) 1.5 10 ^3/uL (0.4-5.4); Lymphocytes % (auto) 32.3 % (10.0-50.0); Mean Corpuscular Hgb Conc. 34.5 g/dL (32.0-36.0); Mean Corpuscular Volume 92.7 fL (80.0-100.0); Monocytes # (auto) 0.4 10 ^3/uL (0-1.3); Monocytes % (auto) 7.5 % (0.0-12.0); Neutrophils # (auto) 2.7 10 ^3/uL (1.6-8.6); Neutrophils % (auto) 57.4 % (37.0-80.0); Platelet Count (auto) 198 10^3/uL (140-450); Red Blood Cells 4.57 10^6/uL (4.5-5.90); Red Cell Distribution Width 14.3 % (11.8-14.3); White Blood Cell 4.8 10^3/uL (4.4-10.8)
[2025-01-31] MEDS: SODIUM CHLORIDE 0.9% 1,000 ML IV ONE (08:33)
[2025-01-31] MEDS: SODIUM CHLORIDE 0.9% 500 ML IV ONE (08:34)
[2025-01-31 08:36] LABS: Chloride 101 mmol/L (98-107); Potassium 3.7 mmol/L (3.5-5.1); Sodium 137 mmol/L (136-145)
[2025-01-31 08:37] LABS: Anion Gap 9 (5-15); Calcium 9.5 mg/dL (8.7-10.4); Carbon Dioxide 27 mmol/L (20-31); INR 1.06 (0.9-1.15); Partial Thromboplastin Time 32.6 SEC (24.5-34.5); Prothrombin Time 11.2 sec (9.3-11.8)
[2025-01-31 08:42] LABS: BUN/Creatinine Ratio 13.1 (10.0-20.0); Blood Urea Nitrogen 23 mg/dL (9-23); Glucose 127 mg/dL (74-106)
[2025-01-31 08:43] LABS: Magnesium 2.3 mg/dL (1.6-2.6)
--- NOTE | 2025-01-31 09:19 | DVH ---
CHEST RADIOGRAPH Indication: cp Technique: Single frontal view of the chest was obtained Comparison: XY CHEST TWO VIEWS ROUTINE on DOS: 01/23/24 FINDINGS: Left chest dual lead cardiac pacer device. The cardiac silhouette is enlarged. The lungs demonstrate patchy airspace opacities. The pulmonary va sculature is prominent. There is no pleural effusion.. There is no pneumothorax. Aortic atherosclerot ic disease. IMPRESSION: 1. Cardiomegaly with pulmonary vascular congestion and bilateral patchy airspace opacities.
[2025-01-31 10:00] VITALS: PULSE 65; RESP 16; O2SAT 100
[2025-01-31 15:14] LABS: Urine Bacteria None Seen /hpf (None Seen)
[2025-01-31 15:35] LABS: Urine Blood Negative /uL (Negative); Urine Clarity Clear (Clear); Urine Color Light-Yellow (Yellow); Urine Protein, UAD Negative (Negative); Urine Specific Gravity 1.016 (1.001-1.035); Urine Squamous Epithelial Cell None Seen /hpf (<5); Urine Urobilinogen Normal (Negative); Urine WBC < 1 /HPF (0-3)
[2025-01-31] MEDS ORDERED: DEXTROSE (50%) 50ML SYRG IV PRN (16:45)
[2025-01-31] MEDS ORDERED: ACETAMINOPHEN 325 MG TAB PO PRN (16:45)
[2025-01-31] MEDS ORDERED: ONDANSETRON HCL 4 MG/2 ML VIAL IV PRN (16:45)
[2025-01-31] MEDS: InsuLIN REG 1unit/0.01ml Soln (100units/ml) SC SCH (17:00)
[2025-01-31] MEDS: ACCU-CHEK COMFORT CURVE STRIP VI SCH (17:16)
--- NOTE | 2025-01-31 17:19 | DVHHP2 ---
History of Present Illness Reason for Visit: Nosebleed History of Present Illness Cipriano Monahan I is a 74-year-old male with past medical history of CAD, hypertension, hyperlipidemia, diabetes type 2, AFib on apixaban, colonoscopy with biopsy, pacemaker, and right knee cartilage it drained who presents to the ED with nose bleeding and dizziness x1 week. Patient's spouse Telma also at the bedside and states that this has happened before and it usually stops. Patient reports that he ambulates with a cane. Patient also reports that he does not use home oxygen however upon examination patient is currently using 2 L nasal cannula. Patient denies any chest pain, shortness of breath, fever, chills, lighthead edness, weakness, recent trauma or injury, recent sick illnesses, abdominal pain, nausea, vomiting, or diarrhea. Cardiovascular: AFIB, CAD, HTN, hyperipidemia Endocrine: Diabetes Past Surgical History: Other (Pacemaker, right knee cartilage drain, and colonoscopy with biopsy) Family History: None Smoke: No ALCOHOL: none Drugs: None Lives: with Family Domestic Violence: Neg Review of Systems Constitutional: Yes: Other (Dizziness and nosebleed) Allergies: Coded Allergies: Ibuprofen (Verified Allergy, Intermediate, 10/15/23) Exam Vital Signs Vital Signs Date Time Temp Pulse Resp B/P (MAP) Pulse Ox O2 Delivery O2 Flow Rate FiO2 01/31/25 16:00 98.3 69 17 129/62 (84) 97 98.3 01/31/25 10:00 Nasal Cannula* 2 28 General Appearance: Alert, Oriented X3, Cooperative, No acute distress HEENT: Atraumatic, PERRLA, EOMI, Mucous membr. moist/pink Respiratory: Clear to auscultation, Normal air movement Cardiovascular: Normal S1, Normal S2 Abdominal: Normal bowel sounds, Soft, No tenderness, No hepatospenomegaly, No masses Extremities: No cyanosis, Normal pulses Skin: No significant lesion Neuro: Normal speech, Normal tone, Sensation intact Psych/Mental Status: Mental status NL, Mood NL Labs/Xrays Labs Test 01/31/25 15:10 01/31/25 08:08 Range/Units Urine Color Light-yellow Yellow Urine Clarity Clear Clear Urine pH 6.0 5.0-9.0 Urine Specific [place] 1.016 1.001-1.035 Urine Protein Negative Negative Urine Ketones Negative Negative Urine Blood Negative Negative /uL Urine Nitrite Negative Negative Urine Bilirubin Negative Negative Urine Urobilinogen Normal Negative mg/dL Urine Leukocyte Esterase Negative Negative /uL Urine RBC 2 0 - 3 /hpf Urine Microscopic WBC < 1 0-3 /HPF Urine Squamous Epithelial Cells None seen <5 /hpf Urine Bacteria None seen None Seen /hpf Urine Glucose Normal Normal mg/dL White Blood Count 4.8 4.4-10.8 10^3/uL Red Blood Count 4.57 4.5-5.90 10^6/uL Hemoglobin 14.6 13.5-17.5 g/dL Hematocrit 42.3 41.0-53.0 % Mean Corpuscular Volume 92.7 80.0-100.0 fL Mean Corpuscular Hemoglobin 32.0 28.0-32.0 pg Mean Corpuscular Hemoglobin Concent 34.5 32.0-36.0 g/dL Red Cell Distribution Width 14.3 11.8-14.3 % Platelet Count 198 140-450 10^3/uL Mean Platelet Volume 7.0 6.9-10.8 fL Neutrophils (%) (Auto) 57.4 37.0-80.0 % Lymphocytes (%) (Auto) 32.3 10.0-50.0 % Monocytes (%) (Auto) 7.5 0.0-12.0 % Eosinophils (%) (Auto) 2.4 0.0-7.0 % Basophils (%) (Auto) 0.4 0.0-2.0 % Neutrophils # (Auto) 2.7 1.6-8.6 10 ^3/uL Lymphocytes # (Auto) 1.5 0.4-5.4 10 ^3/uL Monocytes # (Auto) 0.4 0-1.3 10 ^3/uL Eosinophils # (Auto) 0.1 0-0.8 10 ^3/uL Basophils # (Auto) 0 0-0.2 10 ^3/uL Nucleated Red Blood Cells 0.0 % Prothrombin Time 11.2 9.3-11.8 sec Prothrombin Time INR 1.06 0.9-1.15 Activated Partial Thromboplast Time 32.6 24.5-34.5 SEC Sodium Level 137 136-145 mmol/L Potassium Level 3.7 3.5-5.1 mmol/L Chloride Level 101 98-107 mmol/L Carbon Dioxide Level 27 20-31 mmol/L Anion Gap 9 5-15 Blood Urea Nitrogen 23 9-23 mg/dL Creatinine 1.75 H 0.700-1.30 mg/dL Glomerular Filtration Rate Calc 40 >90 mL/min BUN/Creatinine Ratio 13.1 10.0-20.0 Serum Glucose 127 H 74-106 mg/dL Calcium Level 9.5 8.7-10.4 mg/dL Magnesium Level 2.3 1.6-2.6 mg/dL Troponin I High Sensitivity 4 </=54 ng/L CHEST RADIOGRAPH Indication: cp Technique: Single frontal view of the chest was obtained Comparison: XY CHEST TWO VIEWS ROUTINE on DOS: 01/23/24 FINDINGS: Left chest dual lead cardiac pacer device. The cardiac silhouette is enlarged. The lungs demonstrate patchy airspace opacities. The pulmonary vasculature is prominent. There is no pleural effusion. . There is no pneumothorax. Aortic atherosclerotic disease. IMPRESSION: 1. Cardiomegaly with pulmonary vascular congestion and bilateral patchy airspace opacities. Assessment/Plan Assessment/Plan Assessment Epistaxis Autonomic instability Acute respiratory failure CARLOZ ?PNA History of CAD History of hypertension History of hyperlipidemia History of diabetes type 2 History of AFib on apixaban History of right knee cartilage drain History of colonoscopy with biopsy History of pacemaker Plan Admit to tele Supportive oxygen Last echo on 11/20/2023 EF greater than 55% UA NS 1.5 L given ED EKG Mag level Chest x-ray PT PTT Troponin negative Hemoglobin A1c ISS and Accu-Cheks IV fluids IV antibiotics-ceftriaxone Home medications reconciled Hold lisinopril for CARLOZ Discussed plan of care with patient, patient's , and nurse DVT prophylaxis-patient on apixaban PUD prophylaxis-Protonix Plan discussed with: Patient, Spouse My Orders Orders - DANN FLORES MOLECULAR MODELER Procedure Category Date Status Time NS PHA 01/31/25 Verified 16:45 Hemoglobin A1c LAB 01/31/25 Verified 16:35 Glucose Blood PHA 01/31/25 Verified (Accu-Chek Comfort 17:00 Mild Sliding Scale PHA 01/31/25 Verified 17:00 Dextrose 50% Syringe PHA 01/31/25 Verified 16:45 Admit ADMIT 01/31/25 Verified 16:35 Allergies DOLORES 01/31/25 Verified 16:35 Code Status CODE 01/31/25 Verified 16:35 Ondansetron Hcl PHA 01/31/25 Verified (Zofran) 16:45 Complete Blood Count LAB 02/01/25 Verified 04:00 Comprehensive LAB 02/01/25 Verified Metabolic Panel 04:00 Cardiac DIET 01/31/25 Verified Diet-2gna,Lofat,Lochol Dinner Acetaminophen Tablet PHA 01/31/25 Verified (Tylenol Tablet) 16:45 Ceftriaxone Ivpb PHA 01/31/25 Verified Rocephin 16:45 Apixaban (Eliquis) PHA 01/31/25 Verified 22:00 Atorvastatin (Lipitor) PHA 02/01/25 Verified 10:00 Docusate Sodium PHA 01/31/25 Verified Capsule (Colace 22:00 Gabapentin Capsule PHA 01/31/25 Verified (Neurontin Capsule) 22:00 Loratadine Tablet PHA 02/01/25 Verified (Claritin Tablet) 10:00 Metoprolol Tartrate PHA 01/31/25 Verified Tablet (Lopressor Ta 22:00 Montelukast Tablet PHA 02/01/25 Verified (Singulair Tablet) 10:00 Tramadol Hcl (Ultram) PHA 01/31/25 Verified 18:00 (Nf) Aspirin PHA 02/01/25 Verified 10:00 Date of Service: Jan 31, 2025 Billing Provider: DANN FLORES Common Visit Codes: [id number] INP/OBS CARE (HIGH) DANN FLORES Jan 31, 2025 17:19
[2025-01-31] MEDS: traMADol HCL 50 MG TAB PO SCH (17:32)
[2025-01-31] MEDS: ASPirin 81 mg TAB PO ONE (17:32)
[2025-01-31] MEDS: ATORVASTATIN 20 MG TAB PO ONE (17:32)
[2025-01-31] MEDS: SODIUM CHLORIDE 0.9% 1,000 ML IV SCH (17:33)
[2025-01-31] MEDS: MONTELUKAST SODIUM 10 MG TAB PO ONE (17:33)
[2025-01-31] MEDS: LORATADINE 10 MG TAB PO ONE (17:33)
[2025-01-31] MEDS: cefTRIAXone 1GM/50ML D5W 50 ML IV SCH (17:33)
[2025-01-31 18:34] VITALS: BP 119/69; PULSE 66; RESP 17; TEMP 97.5; O2SAT 96
[2025-01-31 18:42] VITALS: BP 132/65; PULSE 72; RESP 17; TEMP 98.2; O2SAT 99
[2025-01-31 20:00] VITALS: PULSE 68; PULSE 72; RESP 17; O2SAT 99
[2025-01-31 21:00] VITALS: BP 132/65; PULSE 72; RESP 17; TEMP 98.2; O2SAT 99
[2025-01-31] MEDS: METOPROLOL TARTRATE 25 MG TAB PO SCH (21:53)
[2025-01-31] MEDS: GABAPENTIN 300 MG CAP PO SCH (21:53)
[2025-01-31] MEDS: APIXABAN 2.5 MG TAB PO SCH (21:53)
[2025-01-31] MEDS: DOCUSATE SOD 100 MG CAP PO SCH (21:54)
[2025-02-01] VITALS (8 sets, daily range): BP systolic 112–137; BP diastolic 54–76; PULSE 63–74; RESP 16–18; TEMP 97.3–98.9; O2SAT 93–99
[2025-02-01 07:50] LABS: Basophils # (auto) 0 10 ^3/uL (0-0.2); Basophils % (auto) 0.4 % (0.0-2.0); Eosinophils # (auto) 0.1 10 ^3/uL (0-0.8); Eosinophils % (auto) 2.1 % (0.0-7.0); Hematocrit 39.9 % (41.0-53.0); Hemoglobin 13.7 g/dL (13.5-17.5); Lymphocytes # (auto) 1.4 10 ^3/uL (0.4-5.4); Lymphocytes % (auto) 25.8 % (10.0-50.0); Mean Corpuscular Hemoglobin 31.9 pg (28.0-32.0); Mean Corpuscular Hgb Conc. 34.5 g/dL (32.0-36.0); Mean Corpuscular Volume 92.7 fL (80.0-100.0); Monocytes # (auto) 0.5 10 ^3/uL (0-1.3); Monocytes % (auto) 8.5 % (0.0-12.0); Neutrophils # (auto) 3.3 10 ^3/uL (1.6-8.6); Neutrophils % (auto) 63.2 % (37.0-80.0); Platelet Count (auto) 179 10^3/uL (140-450); Red Cell Distribution Width 14.3 % (11.8-14.3); White Blood Cell 5.3 10^3/uL (4.4-10.8)
[2025-02-01 08:08] LABS: Alanine Aminotransferase 14 U/L (7-40); Alkaline Phosphatase 71 U/L (46-116); Anion Gap 11 (5-15); Aspartate Aminotransferase 17 U/L (13-40); BUN/Creatinine Ratio 13.2 (10.0-20.0); Bilirubin, Total 0.6 mg/dL (0.2-1.0); Blood Urea Nitrogen 18 mg/dL (9-23); Calcium 9.2 mg/dL (8.7-10.4); Carbon Dioxide 23 mmol/L (20-31); Chloride 104 mmol/L (98-107); Glucose 79 mg/dL (74-106); Potassium 4.1 mmol/L (3.5-5.1); Sodium 138 mmol/L (136-145); Total Protein 6.9 g/dL (5.7-8.2)
[2025-02-01] MEDS: PANTOPRAZOLE 40 MG/10 ML VIAL INJ IV SCH (08:18)
[2025-02-01] MEDS: LORATADINE 10 MG TAB PO SCH (08:19)
[2025-02-01] MEDS: ATORVASTATIN 20 MG TAB PO SCH (08:19)
[2025-02-01] MEDS: MONTELUKAST SODIUM 10 MG TAB PO SCH (08:20)
[2025-02-01] MEDS: PATIENTS OWN MEDICATION (Aspirin 81 MG) PO SCH (10:00)
[2025-02-01] MEDS: ASPirin-EC 81 mg tab PO SCH (11:34)
--- NOTE | 2025-02-01 11:59 | DVHPN2 ---
Reviewed: Care Plan, H&P, Labs, Medications, Previous Orders, Radiology Changes from previous H/P or p: No Changes Objective Vitals Vital Signs Date Time Temp Pulse Resp B/P (MAP) Pulse Ox O2 Delivery O2 Flow Rate FiO2 02/01/25 09:20 68 126/87 02/01/25 09:00 97.6 18 95 97.6 02/01/25 08:00 Room Air* 0 21 Intake/Output Intake and Output 02/01/25 07:00 Intake Total 1650 ml Output Total 600 ml Balance 1050 ml Intake Oral 100 ml IV Total 1550 ml Output Urine Total 600 ml # Voids 2 # Bowel Movements 1 Medications Current Medications Medications Dose Ordered Sig/Gene Route Start Time Stop Time Status Last Admin Dose Admin Sodium Chloride 1,000 ml @ 100 mls/hr Q10H IV 01/31/25 16:45 02/01/25 11:35 100 MLS/HR Diagnostic Test (Pha) 1 strip ACHS 01/31/25 17:00 02/01/25 11:35 1 STRIP Insulin Human Regular ACHS SC 01/31/25 17:00 Dextrose 50 ml UD PRN IV 01/31/25 16:45 Ondansetron HCl 4 mg Q4HP PRN IV 01/31/25 16:45 Acetaminophen 650 mg Q6HP PRN PO 01/31/25 16:45 Ceftriaxone Sodium 50 ml @ 100 mls/hr DAILY@09 IV 01/31/25 16:45 02/01/25 08:18 100 MLS/HR Apixaban 2.5 mg BID PO 01/31/25 22:00 02/01/25 08:19 2.5 MG Atorvastatin Calcium 20 mg DAILY PO 02/01/25 10:00 02/01/25 08:19 20 MG Docusate Sodium 100 mg BID PO 01/31/25 22:00 02/01/25 08:19 100 MG Gabapentin 300 mg BID PO 01/31/25 22:00 02/01/25 08:20 300 MG Loratadine 10 mg DAILY PO 02/01/25 10:00 02/01/25 08:19 10 MG Metoprolol Tartrate 25 mg BID PO 01/31/25 22:00 02/01/25 08:20 25 MG Montelukast Sodium 10 mg DAILY PO 02/01/25 10:00 02/01/25 08:20 10 MG Tramadol HCl 50 mg Q4HPRN PO 01/31/25 18:00 01/31/25 17:32 50 MG Pantoprazole Sodium 40 mg DAILY IV 02/01/25 10:00 02/01/25 08:18 40 MG Aspirin 81 mg DAILY PO 02/01/25 11:00 02/01/25 11:34 81 MG Laboratory Results Laboratory Tests 02/01/25 06:49 Chemistry Test 02/01/25 06:49 Albumin 4.0 g/dL (3.2-4.8) Calcium Level 9.2 mg/dL (8.7-10.4) Total Protein 6.9 g/dL (5.7-8.2) LFT Test 02/01/25 06:49 Alanine Aminotransferase (ALT) 14 U/L (7-40) Alkaline Phosphatase 71 U/L (46-116) Aspartate Amino Transferase (AST) 17 U/L (13-40) Total Bilirubin 0.6 mg/dL (0.2-1.0) Urinalysis Test 01/31/25 15:10 Urine Color Light-yellow (Yellow) Urine Clarity Clear (Clear) Urine pH 6.0 (5.0-9.0) Urine Specific [place] 1.016 (1.001-1.035) Urine Protein Negative (Negative) Urine Ketones Negative (Negative) Urine Blood Negative /uL (Negative) Urine Nitrite Negative (Negative) Urine Bilirubin Negative (Negative) Urine Urobilinogen Normal mg/dL (Negative) Urine Leukocyte Esterase Negative /uL (Negative) Urine RBC 2 /hpf (0 - 3) Urine Microscopic WBC < 1 /HPF (0-3) Urine Squamous Epithelial Cells None seen /hpf (<5) Urine Bacteria None seen /hpf (None Seen) Urine Glucose Normal mg/dL (Normal) Labs and/or images reviewed: Labs reviewed by me, Image(s) reviewed by me Assessment/Plan Assessment/Plan Epistaxis resolved, stop aspirin hold Eliquis Autonomic instability Acute respiratory failure CARLOZ Possible PNA Rocephin CAD Hypertension Hypercholesterolemia Type 2 diabetes AFib on Eliquis History of pacemaker Time spent 45 minutes Plan discussed with: Patient Date of Service: Feb 01, 2025 Billing Provider: CHUCKIE FERRARA MD Common Visit Codes: [id number] INP/OBS CARE(HIGH) CHUCKIE FERRARA MD Feb 01, 2025 11:59
[2025-02-02 01:00] VITALS: BP 142/74; PULSE 68; RESP 16; TEMP 97.5; O2SAT 95
[2025-02-02 05:00] VITALS: BP 132/65; PULSE 66; RESP 17; TEMP 97.2; O2SAT 98
[2025-02-02 08:00] VITALS: PULSE 66; PULSE 71; RESP 16; O2SAT 95
[2025-02-02 08:47] VITALS: BP 116/77; PULSE 66; RESP 16; TEMP 97.9; O2SAT 95
--- NOTE | 2025-02-02 08:50 | DVHPN2 ---
Progress Note - Dictate Date Seen: Feb 02, 2025 Subjective PT WITH EPISTAXIS SOB LEFT SIDED CHEST PAIN TROPONIN NEGATIVE ECG NEGATIVE PMH: SYNCOPE WHEN PT WAS TRYING TO HAVE EMPTY HIS BLADDER SX C/W ORTHOSTATIC SYNCOPE VS VASOVAGAL SYNCOPE SSS S/P PPI PACEMAKER NEEDS TO BE INTERROGATED TO RULE OUT DYSRHYTHMIA HX OF AFIB GERD HTN HX OF ETOH ABUSE IBS HYPERCOAGULABLE STATE HX OF HH HX OF GASTRITIS OBESITY ECHO LVH DIASTOLIC DYSFUNCTION EF >60% vital signs Vital Sign Date Time Temp Pulse Resp B/P (MAP) Pulse Ox O2 Delivery O2 Flow Rate FiO2 02/02/25 08:27 66 116/77 02/02/25 05:00 97.2 17 98 97.2 02/01/25 20:30 Room Air* 0 21 Total Intake and Output 02/01/25 02/01/25 02/02/25 15:00 23:00 07:00 Intake Total 450 ml 550 ml 240 ml Balance 450 ml 550 ml 240 ml medications Current Medications Medications Dose Ordered Sig/Gene Route Start Time Stop Time Status Last Admin Dose Admin Sodium Chloride 1,000 ml @ 100 mls/hr Q10H IV 01/31/25 16:45 02/02/25 08:28 100 MLS/HR Diagnostic Test (Pha) 1 strip ACHS 01/31/25 17:00 02/02/25 06:19 1 STRIP Insulin Human Regular ACHS SC 01/31/25 17:00 Dextrose 50 ml UD PRN IV 01/31/25 16:45 Ondansetron HCl 4 mg Q4HP PRN IV 01/31/25 16:45 Acetaminophen 650 mg Q6HP PRN PO 01/31/25 16:45 Ceftriaxone Sodium 50 ml @ 100 mls/hr DAILY@09 IV 01/31/25 16:45 02/02/25 08:28 100 MLS/HR Atorvastatin Calcium 20 mg DAILY PO 02/01/25 10:00 02/02/25 08:27 20 MG Docusate Sodium 100 mg BID PO 01/31/25 22:00 02/02/25 08:27 100 MG Gabapentin 300 mg BID PO 01/31/25 22:00 02/02/25 08:26 300 MG Loratadine 10 mg DAILY PO 02/01/25 10:00 02/02/25 08:27 10 MG Metoprolol Tartrate 25 mg BID PO 01/31/25 22:00 02/02/25 08:27 25 MG Montelukast Sodium 10 mg DAILY PO 02/01/25 10:00 02/02/25 08:27 10 MG Tramadol HCl 50 mg Q4HPRN PO 01/31/25 18:00 01/31/25 17:32 50 MG Pantoprazole Sodium 40 mg DAILY IV 02/01/25 10:00 02/02/25 08:26 40 MG laboratory and microbiology Laboratory Tests 02/01/25 06:49 Test 02/01/25 06:49 Range/Units Serum Glucose 79 74-106 mg/dL Problem List EPISTAXIS SOB LEFT SIDED CHEST PAIN TROPONIN NEGATIVE ECG NEGATIVE PMH: SYNCOPE WHEN PT WAS TRYING TO HAVE EMPTY HIS BLADDER SX C/W ORTHOSTATIC SYNCOPE VS VASOVAGAL SYNCOPE SSS S/P PPI PACEMAKER NEEDS TO BE INTERROGATED TO RULE OUT DYSRHYTHMIA HX OF AFIB GERD HTN HX OF ETOH ABUSE IBS HYPERCOAGULABLE STATE HX OF HH HX OF GASTRITIS OBESITY ECHO LVH DIASTOLIC DYSFUNCTION EF >60% Assessment/Plan ABX HOLD ELIQUIS FOR NOW RESTART AT A LOWER DOSE IN 24/48 HOURS AFTER CONTROL OF EPISTAXIS DISCONTINUE VOLTAREN DC ASPIRIN Plan discussed with: Patient NELDA FERNANDEZ MD Feb 02, 2025 08:50
[2025-02-02 10:02] LABS: Hepatitis B Surface Antigen Negative (Negative)
[2025-02-02 10:23] LABS: Hepatitis C Antibody Negative (Negative)
--- NOTE | 2025-02-02 11:02 | ECG ---
[facility] Test Date: 2025-01-31 Test Time: 15:00:35 Pat Name: SHUN SALAZAR Department: ER Room: 0248T B Gender: M Home Care Rn: DR SORENSENB: 1950 Requested By: MIREYA HAYES Order Number: [id number] Reading MD: Roberto Fierro Measurements Intervals [place] Rate: 73 P: 0 [place]: 120 QRS: -55 QRSD: 115 T: 0 QT: 400 QTc: 441 Interpretive Statements Atrial-paced rhythm Left anterior fascicular block Nonspecific T abnormalities, diffuse leads Electronically Signed On 02-04-2025 21:58:07 PDT by Roberto Fierro Please click the below link to view image of tracing.
--- NOTE | 2025-02-02 11:36 | DVHDS2 ---
Discharge Summary Date of Admission Jan 31, 2025 at 16:35 Date of Discharge: Feb 02, 2025 Labs/Diagnostic Data: Laboratory Results Test 02/02/25 06:05 02/01/25 06:49 01/31/25 15:10 01/31/25 08:08 POC Glucose 87 mg/dl (70-106) White Blood Count 5.3 10^3/uL (4.4-10.8) Red Blood Count 4.30 10^6/uL (4.5-5.90) Hemoglobin 13.7 g/dL (13.5-17.5) Hematocrit 39.9 % (41.0-53.0) Mean Corpuscular Volume 92.7 fL (80.0-100.0) Mean Corpuscular Hemoglobin 31.9 pg (28.0-32.0) Mean Corpuscular Hemoglobin Concent 34.5 g/dL (32.0-36.0) Red Cell Distribution Width 14.3 % (11.8-14.3) Platelet Count 179 10^3/uL (140-450) Mean Platelet Volume 7.0 fL (6.9-10.8) Neutrophils (%) (Auto) 63.2 % (37.0-80.0) Lymphocytes (%) (Auto) 25.8 % (10.0-50.0) Monocytes (%) (Auto) 8.5 % (0.0-12.0) Eosinophils (%) (Auto) 2.1 % (0.0-7.0) Basophils (%) (Auto) 0.4 % (0.0-2.0) Neutrophils # (Auto) 3.3 10 ^3/uL (1.6-8.6) Lymphocytes # (Auto) 1.4 10 ^3/uL (0.4-5.4) Monocytes # (Auto) 0.5 10 ^3/uL (0-1.3) Eosinophils # (Auto) 0.1 10 ^3/uL (0-0.8) Basophils # (Auto) 0 10 ^3/uL (0-0.2) Nucleated Red Blood Cells 0.0 % Sodium Level 138 mmol/L (136-145) Potassium Level 4.1 mmol/L (3.5-5.1) Chloride Level 104 mmol/L (98-107) Carbon Dioxide Level 23 mmol/L (20-31) Anion Gap 11 (5-15) Blood Urea Nitrogen 18 mg/dL (9-23) Creatinine 1.36 mg/dL (0.700-1.30) Glomerular Filtration Rate Calc 54 mL/min (>90) BUN/Creatinine Ratio 13.2 (10.0-20.0) Serum Glucose 79 mg/dL (74-106) Calcium Level 9.2 mg/dL (8.7-10.4) Total Bilirubin 0.6 mg/dL (0.2-1.0) Aspartate Amino Transferase (AST) 17 U/L (13-40) Alanine Aminotransferase (ALT) 14 U/L (7-40) Alkaline Phosphatase 71 U/L (46-116) Total Protein 6.9 g/dL (5.7-8.2) Albumin 4.0 g/dL (3.2-4.8) Urine Color Light-yellow (Yellow) Urine Clarity Clear (Clear) Urine pH 6.0 (5.0-9.0) Urine Specific [place] 1.016 (1.001-1.035) Urine Protein Negative (Negative) Urine Ketones Negative (Negative) Urine Blood Negative /uL (Negative) Urine Nitrite Negative (Negative) Urine Bilirubin Negative (Negative) Urine Urobilinogen Normal mg/dL (Negative) Urine Leukocyte Esterase Negative /uL (Negative) Urine RBC 2 /hpf (0 - 3) Urine Microscopic WBC < 1 /HPF (0-3) Urine Squamous Epithelial Cells None seen /hpf (<5) Urine Bacteria None seen /hpf (None Seen) Urine Glucose Normal mg/dL (Normal) Prothrombin Time 11.2 sec (9.3-11.8) Prothrombin Time INR 1.06 (0.9-1.15) Activated Partial Thromboplast Time 32.6 SEC (24.5-34.5) Hemoglobin A1c 6.2 % A1C (<5.7) Magnesium Level 2.3 mg/dL (1.6-2.6) Troponin I High Sensitivity 4 ng/L (</=54) Hepatitis B Surface Antigen Negative (Negative) Hepatitis C Antibody Negative (Negative) Other Laboratory Tests 02/01/25 06:49 Brief Hx & Hospital Course: see dictated note Condition at Discharge: Fair Final Diagnosis/Problems List epistaxis Discharge Disposition: Home Discharge Instruct/Medications Diet: Consistent carbohydrate, Cardiac 2g Na,low cholest Activity: No Restrictions, As Tolerated Follow Up/Referral: fu with pcp/dr Stewart in 1 wk Medications: resume home meds hold eliquis till he sees dr Stewart next week Discharge Statement: "Patient was advised to return to the ER or call 911 if any headaches, dizziness, shortness of breath, chest pain, abdominal pain, bleeding, fevers, or worsening of medical condition. Patient was counseled about treatment plan, medications, possible side effects, patientverbalized understanding. All questions were answered to the best of my ability. This discharge took greater then 30 minutes in planning, reviewing documentation, counseling the patient, and discussing with other team members." ASSESSMENT ASSESSMENT Assessment epistaxis Date of Service: Feb 02, 2025 Billing Provider: MOISES MELTON MD Common Visit Codes: [id number] DISCH DAY >30min Secondary Visit Codes: [id number] CARE PLAN 30 MINUTES MOISES MELTON MD Feb 02, 2025 11:36
[2025-02-02 11:54] VITALS: BP 122/70; PULSE 68; RESP 18; TEMP 98.7; O2SAT 95
--- NOTE | 2025-02-02 11:55 | DVHDS ---
DATE OF DISCHARGE: 02/02/2025 The patient is a 74-year-old gentleman who was admitted with history of dizziness and nose bleeding and has history of coronary artery disease, hyperlipidemia, hypertension, diabetes, atrial fibrillation, and pacemaker. HOSPITAL COURSE: The patient was seen in Cardiology consult by Dr. Stewart. Chest x-ray showed possible congestive heart failure. The patient's hemoglobin remained stable and creatinine was 1.7 that improved to 1.3 at the time of discharge. The patient's troponin levels were negative. He is now doing well. The patient has been cleared for discharge by Cardiology. He is on room air oxygen. The patient will be discharged home to resume his home medications except he will hold the Eliquis till he sees Dr. Stewart next week. FINAL DIAGNOSES: * Epistaxis. * Questionable [id number] diastolic heart failure. * Acute respiratory failure. * Atrial fibrillation with secondary hypercoagulable state. * [id number] renal failure, questionable vasomotor nephropathy. * Obesity. * Status post pacemaker. * Diabetes mellitus. * Hyperlipidemia. * Hypertension. Time spent in discharge planning and review of plan with the patient and nursing was 38 minutes. Advance care planning: The patient is a full code. Time spent was 19 minutes. MD MANASA Oscar/ESTEPHANIE TID: [id number] RECEIPT: [id number]
--- NOTE | 2025-02-02 17:13 | DVHPN2 ---
Progress Note - Dictate Date Seen: Jan 31, 2025 Subjective PT WITH EPISTAXIS SOB LEFT SIDED CHEST PAIN TROPONIN NEGATIVE ECG NEGATIVE PMH: SYNCOPE WHEN PT WAS TRYING TO HAVE EMPTY HIS BLADDER SX C/W ORTHOSTATIC SYNCOPE VS VASOVAGAL SYNCOPE SSS S/P PPI PACEMAKER NEEDS TO BE INTERROGATED TO RULE OUT DYSRHYTHMIA HX OF AFIB GERD HTN HX OF ETOH ABUSE IBS HYPERCOAGULABLE STATE HX OF HH HX OF GASTRITIS OBESITY ECHO LVH DIASTOLIC DYSFUNCTION EF >60% vital signs Vital Sign Date Time Temp Pulse Resp B/P (MAP) Pulse Ox O2 Delivery O2 Flow Rate FiO2 02/02/25 11:54 98.7 68 18 95 02/02/25 09:27 122/70 02/02/25 08:00 Room Air* 0 21 Total Intake and Output 02/01/25 02/01/25 02/02/25 15:00 23:00 07:00 Intake Total 450 ml 550 ml 240 ml Balance 450 ml 550 ml 240 ml laboratory and microbiology Laboratory Tests 02/01/25 06:49 Test 02/01/25 06:49 Range/Units Serum Glucose 79 74-106 mg/dL Problem List EPISTAXIS SOB LEFT SIDED CHEST PAIN TROPONIN NEGATIVE ECG NEGATIVE PMH: SYNCOPE WHEN PT WAS TRYING TO HAVE EMPTY HIS BLADDER SX C/W ORTHOSTATIC SYNCOPE VS VASOVAGAL SYNCOPE SSS S/P PPI PACEMAKER NEEDS TO BE INTERROGATED TO RULE OUT DYSRHYTHMIA HX OF AFIB GERD HTN HX OF ETOH ABUSE IBS HYPERCOAGULABLE STATE HX OF HH HX OF GASTRITIS OBESITY ECHO LVH DIASTOLIC DYSFUNCTION EF >60% Assessment/Plan ABX HOLD ELIQUIS FOR NOW RESTART AT A LOWER DOSE IN 24/48 HOURS AFTER CONTROL OF EPISTAXIS DISCONTINUE VOLTAREN DC ASPIRIN Plan discussed with: Patient NELDA FERNANDEZ MD Feb 02, 2025 17:13
== END 2025-02-02 12:30 | disposition home or self-care (01) | DRG 150 ==
LOC: ER 07:00 → EDBD 07:00 → OVERFLOW 16:35 → TELE-EAST 18:35
PROVIDERS: ADMIT Internal Medicine; ATTEND Internal Medicine
DX: R04.0 Epistaxis (principal); I50.33 Acute on chronic diastolic (congestive) heart failure; N17.0 Acute kidney failure with tubular necrosis; J96.00 Acute respiratory failure, unspecified whether with hypoxia or hypercapnia; I13.0 Hypertensive heart and chronic kidney disease with heart failure and stage 1 through stage 4 chronic kidney disease, or unspecified chronic kidney disease; D68.69 Other thrombophilia; E78.00 Pure hypercholesterolemia, unspecified; I48.91 Unspecified atrial fibrillation; E11.22 Type 2 diabetes mellitus with diabetic chronic kidney disease; G90.89 Other disorders of autonomic nervous system; I25.10 Atherosclerotic heart disease of native coronary artery without angina pectoris; N18.9 Chronic kidney disease, unspecified; K21.9 Gastro-esophageal reflux disease without esophagitis; E66.9 Obesity, unspecified; Z88.3 Allergy status to other anti-infective agents; Z95.0 Presence of cardiac pacemaker; Z79.01 Long term (current) use of anticoagulants; Z79.82 Long term (current) use of aspirin; Z79.899 Other long term (current) drug therapy; Z83.3 Family history of diabetes mellitus; Z82.49 Family history of ischemic heart disease and other diseases of the circulatory system; Z68.31 Body mass index [BMI] 31.0-31.9, adult
CPT/HCPCS: 30901; 36415; 71046; 80048; 80053; 81001; 82962; 83036; 83735; 84484; 85025; 85610; 85730; 86803; 87340; 93005; 96360; 96361; G0378; J2470

== ENCOUNTER → 2025-02-23 | Outpatient (CLI) | payer MEDICARE, OTHER ==
--- NOTE | 2025-02-23 12:09 | DVH ---
XY CHEST TWO VIEWS ROUTINE, HISTORY: SOB COMPARISON: XY CHEST TWO VIEWS ROUTINE on DOS: 01/31/25, XY CHEST TWO VIEWS ROUTINE on DOS: 01/23/24 XY CHEST TWO VIEWS ROUTINE on DOS: 01/31/25, XY CHEST TWO VIEWS ROUTINE on DOS: 01/23/24 TECHNICAL DATA: 2 view of the chest was obtained. FINDINGS: Lines and tubes: A cardiac pacer is seen. Cardiomediastinal silhouette: normal Pulmonary vasculature: normal Lung expansion: normal Lung airspace: normal Lung interstitium: normal Pleura: normal Pneumothorax: no Bones: Unremarkable Other: no IMPRESSION: No acute intrathoracic abnormality.
== END | disposition home or self-care (01) ==
LOC: Rad HDHVI 10:57
PROVIDERS: ATTEND Internal Medicine Cardiovascular Disease
DX: R06.02 Shortness of breath (principal); Z95.0 Presence of cardiac pacemaker
CPT/HCPCS: 71046

== ENCOUNTER → 2025-03-09 | Outpatient (CLI) | payer MEDICARE, OTHER | END | disposition home or self-care (01) | LOC: Rad HDHVI 12:43 | PROVIDERS: ATTEND Internal Medicine Cardiovascular Disease | DX: I08.3 Combined rheumatic disorders of mitral, aortic and tricuspid valves (principal); I77.819 Aortic ectasia, unspecified site; R42 Dizziness and giddiness | CPT/HCPCS: 93306 ==

== ENCOUNTER → 2025-03-23 | Outpatient (CLI) | payer MEDICARE, OTHER ==
[~2025-03-23] VITALS: Ht 182.9 cm; Wt 113.4 kg
[~2025-03-23] MED LIST changes: +ADENOSINE 90 MG/30 ML INJ IV ONE; +ADENOSINE 95 MG in GIVE UN-DILUTED 0 ML IV ONE
== END | disposition home or self-care (01) ==
LOC: Rad HDHVI 12:51
PROVIDERS: ATTEND Internal Medicine Cardiovascular Disease
DX: I49.1 Atrial premature depolarization (principal); I49.3 Ventricular premature depolarization; R00.0 Tachycardia, unspecified; Z13.6 Encounter for screening for cardiovascular disorders; I13.0 Hypertensive heart and chronic kidney disease with heart failure and stage 1 through stage 4 chronic kidney disease, or unspecified chronic kidney disease; N18.2 Chronic kidney disease, stage 2 (mild); I50.9 Heart failure, unspecified; E11.22 Type 2 diabetes mellitus with diabetic chronic kidney disease; E11.65 Type 2 diabetes mellitus with hyperglycemia; R06.02 Shortness of breath; E78.00 Pure hypercholesterolemia, unspecified; I49.5 Sick sinus syndrome; I48.0 Paroxysmal atrial fibrillation; Z95.0 Presence of cardiac pacemaker; Z82.49 Family history of ischemic heart disease and other diseases of the circulatory system
CPT/HCPCS: 78452; 93017; A9500; J0153

== ENCOUNTER 2025-04-10 11:07 | Outpatient (CLI) | payer MEDICARE, OTHER ==
[~2025-04-10 11:07] MED LIST changes: -ADENOSINE 90 MG/30 ML INJ IV ONE; -ADENOSINE 95 MG in GIVE UN-DILUTED 0 ML IV ONE
--- NOTE | 2025-04-10 11:59 | DVH ---
EXAM: CT SINUS WITHOUT CONTRAST HISTORY: SINUSITIS COMPARISON: None TECHNIQUE: Noncontrast axial CT images of the paranasal sinuses were performed. Coronal and sagittal reformatted images were obtained. Radiation dose: CTDIvol 39.05 mGy, DLP 522.46 mGy*cm. This CT exam was performed using one or more of the following dose reduction techniques: Automated ex posure control, adjustment of the mA and/or kV according to patient size, or use of iterative reconst ruction technique. FINDINGS: There is mild mucosal thickening in the ethmoid sinuses. The other paranasal sinuses are cl ear. No facial bone fractures are identified. The nasal septum is minimally deviated to the left. The OMCs are patent. There are small bilateral gus bullosa. No Leobardo cells. The mastoid air cells an d middle ear spaces are clear. There is lucency about the root of a right mandibular tooth (image 6, series 3). IMPRESSION: 1. Mild bilateral ethmoid sinus disease. The other paranasal sinuses are clear. 2. Lucency about the root of a right maxillary tooth. Recommend dental consultation.
== END 2025-04-10 17:00 | disposition home or self-care (01) ==
LOC: Rad HDHVI 11:07
PROVIDERS: ATTEND Internal Medicine Cardiovascular Disease
DX: J32.2 Chronic ethmoidal sinusitis (principal); J34.89 Other specified disorders of nose and nasal sinuses
CPT/HCPCS: 70486

== ENCOUNTER 2025-09-02 09:48 | Inpatient (IN) | payer MEDICARE, OTHER ==
[~2025-09-02] VITALS: Ht 170.2 cm; Wt 118.7 kg
[2025-09-02] MEDS: SODIUM CHLORIDE 0.9% 1,000 ML IV ONE (10:10)
--- NOTE | 2025-09-02 10:27 | ED.PDOC ---
History of Present Illness HPI Comments 75-year-old male to the ER with a cane and with history of AFib, diabetes, hypertension: Surgical history of pacemaker and the chief complaint of generalized weakness. Reports on having generalized weakness associated with a fever for the past three days. Patient states on having shakiness and dizziness since this morning which prompted him and his family to go to the ER. Denies any other symptoms at this time. Denies chills, N/V/D, SOB, CP. No other associated symptoms, modifiers, recent injuries or sick contacts present at this time. Chief Complaint: General Weakness Time Seen by MD: 10:25 Primary Care Provider: Terry Reviewed Notes: Nurses Notes, Medications, Allergies Allergies: Coded Allergies: Ibuprofen (Verified Allergy, Intermediate, 10/15/23) Home Meds Active Scripts Lidocaine (LIDODERM 5% TOPICAL PATCH) 1 Patch Ph, 1 PATCH TOP DAILY, #30 PATCH 1 Refill as needed for pain Prov:DENISHA PEREZ Q CURRICULUM SPECIALIST 04/04/23 Baclofen (Baclofen) 5 Mg Tab, 5 MG PO Q8HR, #15 TAB as needed for muscle spasm Prov:DENISHA PEREZ Q CURRICULUM SPECIALIST 04/04/23 Sucralfate (CARAFATE) 1 Gm Tab, 1 GM PO BID for 30 Days, #60 TAB Prov:KYLIE WILSON MD 07/13/21 Pantoprazole Sodium Sesquihydr (Protonix) 40 Mg Tab, 40 MG PO BID for 30 Days, #60 TAB Prov:KYLIE WILSON MD 07/13/21 Reported Medications Magnesium Oxide (MAGNESIUM OXIDE) 400 Mg Tab, 500 MG OR, TAB 10/16/23 Melatonin (KP MELATONIN) 3 Mg Tab, 5 MG PO, TAB 10/16/23 Montelukast Sodium (MONTELUKAST SODIUM) 10 Mg Tab, 1 TAB PO DAILY, #30 TAB 5 Refills 10/16/23 Atorvastatin Calcium (ATORVASTATIN CALCIUM) 20 Mg Tab, 1 TAB PO DAILY 10/15/23 Diclofenac Sodium (Diclofenac Sodium Dr) 75 Mg Tab, 1 TAB PO BID 06/05/23 Gabapentin (Gabapentin) 300 Mg Cap, 300 MG PO BID, CAP 05/14/22 Metoprolol Tartrate (Metoprolol Tartrate) 25 Mg Tab, 25 MG PO BID for 30 Days, MG 05/14/22 Loratadine (Claritin) 10 Mg Tab, 1 TAB PO DAILY, #30 TAB 5 Refills 07/09/20 Lisinopril (Lisinopril) 5 Mg Tab, 5 MG PO DAILY, TAB 07/09/20 Lactulose (Generlac) 10 Gm/15 Ml Lexie, 10 GM PO TIDP PRN for FOR CONSTIPATION, ML 12/19/19 Docusate Sodium (Colace) 100 Mg Cap, 100 MG PO BID, CAP 12/19/19 Apixaban Base (ELIQUIS) 2.5 Mg Tab, 2.5 MG PO BID, TAB 12/19/19 Aspirin (Aspirin) 325 Mg Tab, 81 MG PO DAILY for 30 Days, MG 10/11/19 Tramadol Hcl (Tramadol Hcl) 50 Mg Tab, 50 MG PO Q4HPRN, MG 10/11/19 Information Source: Patient Mode of Arrival: Ambulatory Severity: Moderate Timing: Days Duration: Since onset, Days Prehospital treatment: None Past Medical History PAST MEDICAL HISTORY: AFIB, DM, HTN Surgical History: Pacemaker Family History Family History: Reviewed,noncontributory to illness, Unknown Social History Smoker: Non-Smoker Alcohol: Denies ETOH Use Drugs: Denies Drug Use Lives In: Home Constitutional: reports: fever, weakness; denies: chills, diaphoresis, fatigue, malaise, sweats, others EENTM: denies: blurred vision, double vision, ear bleeding, ear discharge, ear drainage, ear pain, ear ringing, eye pain, eye redness, hearing loss, mouth pain, mouth swelling, nasal discharge, nose bleeding, nose congestion, nose pain, photophobia, tearing, throat pain, throat swelling, voice changes, others Respiratory: denies: cough, hemoptysis, orthopnea, SOB at rest, shortness of breath, SOB with excertion, stridor, wheezing, others Cardiovascular: denies: chest pain, dizzy spells, diaphoresis, Dyspnea on exertion, edema, irregular heart beat, left arm pain, lightheadedness, palpitations, PND, syncope, others Gastrointestinal: denies: abdomen distended, abdominal pain, blood streaked bowels, constipated, diarrhea, dysphagia, difficulty swallowing, hematemesis, melena, nausea, poor appetite, poor fluid intake, rectal bleeding, rectal pain, vomiting, others Genitourinary: denies: burning, dysuria, flank pain, frequency, hematuria, incontinence, penile discharge, penile sore, pain, testicle pain, testicle swelling, urgency, others Neurological: reports: dizziness; denies: fainting, headache, left sided numbness, left sided weakness, numbness, paresthesia, pre-existing deficit, right sided numbness, right sided weakness, seizure, speech problems, tingling, tremors, weakness, others Musculoskeletal: denies: back pain, gout, joint pain, joint swelling, muscle pain, muscle stiffness, neck pain, others Integumetry: denies: bruises, change in color, change in hair/nails, dryness, laceration, lesions, lumps, rash, wounds, others Allergic/Immunocompromised: denies: Difficulty Healing, Frequent Infections, Hives, Itching, others Hematologic/Lymphatic: denies: anemia, blood clots, easy bleeding, easy bruising, swollen glands, others Endocrine: denies: excessive hunger, excessive sweating, excessive thirst, excessive urination, flushing, intolerance to cold, intolerance to heat, unexplained weight gain, unexplained weight loss, others Psychiatric: denies: anxiety, bipolar disorder, depression, hopeless, panic disorder, schizophrenia, sleepless, suicidal, others All Other Systems: Reviewed and Negative Physical Exam General Appearance: Moderate Distress, Normal HEENT: Normal ENT Inspection, Pharynx Normal, TMs Normal Neck: Full Range of Motion, Non-Tender, Normal, Normal Inspection Respiratory: Chest Non-Tender, Lungs Clear, No Accessory Muscle Use, No Respiratory Distress, Normal Breath Sounds Cardiovascular: No Edema, No JVD, No Murmur, No Gallop, Normal Peripheral Pulses, Regular Rate/Rhythm Breast Exam: Deferred Gastrointestinal: No Organomegaly, Non Tender, No Pulsatile Mass, Normal Bowel Sounds, Soft Genitalia: Deferred Pelvic: Deferred Rectal: Deferred Extremities: No calf tenderness, Normal capillary refill, Normal inspection, Normal range of motion, Non-tender, No pedal edema Musculoskeletal : Apperance: Normal Neurologic: Alert, station helper II-XII nml as Tested, No Motor Deficits, Normal Affect, Normal Mood, No Sensory Deficits Cerebellar Function: Normal Reflexes: Normal Skin: Dry, Normal Color, Warm Peripheral Pulses: 3+ Radial (R), 3+ Radial (L) Lymphatic: No Adenopathy Was a procedure done? Was a procedure done?: No Differential Dx Considerations may include: TIA Electrolyte imbalance X-Ray, Labs, Meds, VS Vital Signs Date Time Temp Pulse Resp B/P (MAP) Pulse Ox O2 Delivery O2 Flow Rate FiO2 09/02/25 10:43 98.5 83 18 123/80 (94) 96 98.5 09/02/25 10:43 83 18 96 Room Air 09/02/25 09:49 97.9 77 18 143/79 97 97.9 Lab Test 09/02/25 10:22 Range/Units White Blood Count 5.2 4.4-10.8 10^3/uL Red Blood Count 6.17 H 4.5-5.90 10^6/uL Hemoglobin 18.0 H 13.5-17.5 g/dL Hematocrit 54.4 H 41.0-53.0 % Mean Corpuscular Volume 88.2 80.0-100.0 fL Mean Corpuscular Hemoglobin 29.2 28.0-32.0 pg Mean Corpuscular Hemoglobin Concent 33.1 32.0-36.0 g/dL Red Cell Distribution Width 15.9 H 11.8-14.3 % Platelet Count 193 140-450 10^3/uL Mean Platelet Volume 7.3 6.9-10.8 fL Neutrophils (%) (Auto) 57.8 37.0-80.0 % Lymphocytes (%) (Auto) 29.5 10.0-50.0 % Monocytes (%) (Auto) 8.3 0.0-12.0 % Eosinophils (%) (Auto) 4.0 0.0-7.0 % Basophils (%) (Auto) 0.4 0.0-2.0 % Neutrophils # (Auto) 3.0 1.6-8.6 10 ^3/uL Lymphocytes # (Auto) 1.5 0.4-5.4 10 ^3/uL Monocytes # (Auto) 0.4 0-1.3 10 ^3/uL Eosinophils # (Auto) 0.2 0-0.8 10 ^3/uL Basophils # (Auto) 0 0-0.2 10 ^3/uL Nucleated Red Blood Cells 0.3 % Sodium Level 138 136-145 mmol/L Potassium Level 3.9 3.5-5.1 mmol/L Chloride Level 100 98-107 mmol/L Carbon Dioxide Level 29 20-31 mmol/L Anion Gap 9 5-15 Blood Urea Nitrogen 13 9-23 mg/dL Creatinine 1.75 H 0.700-1.30 mg/dL Glomerular Filtration Rate Calc 40 >90 mL/min BUN/Creatinine Ratio 7.4 L 10.0-20.0 Serum Glucose 84 74-106 mg/dL Calcium Level 9.5 8.7-10.4 mg/dL Troponin I High Sensitivity 9 </=54 ng/L Current Medications Medications (Trade) Dose Ordered Sig/Gene Route Start Time Stop Time Status Last Admin Sodium Chloride 1,000 ml @ 1,000 mls/hr Q1H ONCE IV 09/02/25 10:15 09/02/25 11:14 DC 09/02/25 10:10 Patient alert. Came in because of generalized weakness. Vitals stable. Answering questions. Establish intravenous access. Was given fluids. WBC within normal limits. Hemoglobin elevated. Dehydration. Explained to the patient. Continue monitoring. Time of 1ST Reevaluation: 10:55 Reevaluation 1ST: Unchanged Patient Education/Counseling: Diagnosis, Treatment, Prognosis Family Education/Counseling: No Family Present SEPSIS Sepsis Screen Date sepsis recognized/suspect: Sep 02, 2025 Time Sepsis recognized/suspect: 954 Recent Procedure: No On Antibiotic Therapy: No Respiratory Rate >20: No Heart Rate >90: No Temp<36 C (96.8 F) or >38.3 C: No SBP <90 or MAP <65 mmHG: No New Acute Mental Status Change: No Is the patient on CPAP, BIPAP,: No Physician Orders Urinalysis (09/02/25 10:11) Head Without Contrast (09/02/25 12:14) Vital Signs Date Time Temp Pulse Resp B/P (MAP) Pulse Ox O2 Delivery O2 Flow Rate FiO2 09/02/25 10:43 98.5 83 18 123/80 (94) 96 98.5 09/02/25 10:43 83 18 96 Room Air 09/02/25 09:49 97.9 77 18 143/79 97 97.9 Laboratory Tests Test 09/02/25 10:22 White Blood Count 5.2 10^3/uL (4.4-10.8) Medications Medications Dose Ordered Sig/Gene Route Start Time Stop Time Status Last Admin Dose Admin Sodium Chloride 1,000 ml @ 1,000 mls/hr Q1H ONCE IV 09/02/25 10:15 09/02/25 11:14 DC 09/02/25 10:10 Departure 1 Departure Time of Disposition: 12:17 Impression: Primary Impression: Generalized weakness Additional Impression: Dehydration Disposition: ADMITTED INPATIENT Admit to: Med Surg Condition: Guarded Critical Care Note Critical Care Time?: No Stability Stability form required: No Heart Score Heart Score: Heart Score Response (Comments) Value History Slightly Suspicious 0 EKG Normal 0 Age >65 2 Risk Factors >3 or Hx ASHD 2 Troponin Normal limit 0 Total 4 I personally scribed for TIMMY MARTINS MD ([email or web address]) on 09/02/25 at 10:27. Electronically submitted by Gato Coker ([email or web address]). TIMMY MARTINS MD Sep 02, 2025 10:27
[2025-09-02 11:10] LABS: Anion Gap 9 (5-15); Carbon Dioxide 29 mmol/L (20-31); Chloride 100 mmol/L (98-107); Potassium 3.9 mmol/L (3.5-5.1); Sodium 138 mmol/L (136-145)
[2025-09-02 11:11] LABS: Calcium 9.5 mg/dL (8.7-10.4)
[2025-09-02 11:15] LABS: Hemoglobin 18.0 g/dL (13.5-17.5); Mean Corpuscular Hemoglobin 29.2 pg (28.0-32.0)
[2025-09-02 11:16] LABS: BUN/Creatinine Ratio 7.4 (10.0-20.0); Blood Urea Nitrogen 13 mg/dL (9-23); Glucose 84 mg/dL (74-106)
[2025-09-02 11:18] LABS: Hematocrit 54.4 % (41.0-53.0); Mean Corpuscular Volume 88.2 fL (80.0-100.0); Nucleated Red Blood Cells % 0.3 %
--- NOTE | 2025-09-02 12:52 | DVH ---
CT HEAD WITHOUT CONTRAST INDICATION: tia EXAM DATE: 09/02/2025 12:13 PM COMPARISON: CT SINUS WITHOUT CONTRAST on DOS: 04/10/25, CT HEAD WITHOUT CONTRAST on DOS: 10/16/23, US C AROTID DUPLX W COLOR DOP on DOS: 06/05/23 RADIATION DOSE: CTDIvol: 69.37 mGy, DLP: 1505.37 mGy*cm PROCEDURE: CT scans of the head were obtained from the vertex to the skull base. Sagittal and coronal reconstructions were provided. All CT scans at this medical facility are performed using dose modulation techniques as appropriate t o a performed exam including the following: Automated exposure control was utilized; adjustment of th e MA and/or KV according to patient size; and use of iterative reconstruction technique. FINDINGS: There is sulcal and ventricular prominence. The brainshows normal morphology and arauz-whi te matter differentiation, without intracranial hemorrhage, extra-axial fluid collection, mass effect or acute large vessel infarct. The ventricles are normal in size. The basal cisterns are patent. The skull and visible facial bones are intact. The paranasal sinuses, mastoid air cells and middle ear c avities are well-aerated. The soft tissues of the scalp are unremarkable. IMPRESSION: No acute intracranial abnormality.
[2025-09-02] MEDS ORDERED: ONDANSETRON HCL 4 MG/2 ML VIAL IV PRN (14:30)
[2025-09-02] MEDS ORDERED: MORPHINE SULFATE INJ 2 MG/ml SYRG IV PRN (14:30)
--- NOTE | 2025-09-02 14:58 | DVH ---
EXAM: XY CHEST XRAY 1 VIEW Indication: Pain Technique: Single frontal view of the chest was obtained Comparison: XY CHEST TWO VIEWS ROUTINE on DOS: 02/23/25, XY CHEST TWO VIEWS ROUTINE on DOS: 01/31/25, X Y CHEST TWO VIEWS ROUTINE on DOS: 01/23/24, XY CHEST PORTABLE on DOS: 10/15/23, XY CHEST PORTABLE on D OS: 06/10/23 FINDINGS: Lines and Tubes: Cardiac pacemaker projects over left chest wall. Lungs: No focal consolidation. Pleura: No effusion. No pneumothorax. Cardiomediastinal contours: Unremarkable Bones: No acute osseous abnormality. IMPRESSION: No acute cardiopulmonary disease.
--- NOTE | 2025-09-02 15:10 | DVHHPRES ---
History of Present Illness Resident Creating Document: KENDALL WALTERS RESIDENT History of Present Illness Cipriano Smith I. Is a 75-year-old male, with past medical history of HTN, hyperlipidemia, aFib (on Eliquis), pacemaker, and DM2. The patient came to the ED with chief complaint of 3 days of generalized weakness associated with malaise and subjective intermittent fevers. Today, the patient reports his weakness did not improved with rest and he start feeling dizziness and feeling shaky, this prompted his visit to the ED. The patient denies falls, headache, chest pain, abdominal pain, diarrhea, nausea, vomit, recent travels or sick contacts. In the ED BP: 143/79mmHg, HR: 77. The patient will be admitted for further assessment and management. Cardiovascular: AFIB, HTN, hyperipidemia Renal/: Chronic renal failure Endocrine: Diabetes (type 2) Past Surgical History: Other (pacemaker) Family History Unknown Smoke: No ALCOHOL: none Drugs: None Lives: with Family Review of Systems Constitutional: Yes: Fever, Malaise, Other Eyes: No: Pain, Vision change, Conjunctivae inflammation, Eyelid inflammation, Other, Redness ENT: No: Ear pain, Ear discharge, Nose pain, Nose discharge, Nose congestion, Mouth pain, Mouth swelling, Throat pain, Throat swelling, Other Respiratory: No: Cough, Dry, Shortness of breath, SOB with excertion, Wheezing, Hemoptysis, Pleuritic Pain, Sputum, Wheezing, Other Cardiovascular: No: Chest Pain, Palpitations, Orthopnea, Paroxysmal Noc. Dyspnea, Edema, Lt Headedness, Other Gastrointestinal: No: Nausea, Vomiting, Abdominal Pain, Diarrhea, Constipation, Melena, Hematochezia, Other Genitourinary: No Dysuria, No Frequency, No Incontinence, No Hematuria, No Retention, No Other Musculoskeletal: No: other, neck pain, shoulder pain, arm pain, back pain, hand pain, leg pain, foot pain Skin: No: Rash, Lesions, Jaundice, Bruising, Other Neurological: Weakness, Other (Dizziness) Allergies: Coded Allergies: Ibuprofen (Verified Allergy, Intermediate, 10/15/23) Medications Current Medications Medications Dose Ordered Sig/Gene Route Start Time Stop Time Status Last Admin Dose Admin Morphine Sulfate 2 mg Q30M PRN IV 09/02/25 14:30 Sodium Chloride 1,000 ml @ 75 mls/hr [id number] IV 09/02/25 14:30 Ondansetron HCl 4 mg PRN PRN IV 09/02/25 14:30 Atorvastatin Calcium 20 mg DAILY PO 09/03/25 10:00 Docusate Sodium 100 mg BID PO 09/02/25 22:00 Gabapentin 300 mg BID PO 09/02/25 22:00 Lisinopril 5 mg DAILY PO 09/03/25 10:00 Metoprolol Tartrate 25 mg BID PO 09/02/25 22:00 Pantoprazole Sodium 40 mg BID PO 09/02/25 22:00 Sucralfate 1 gm BID PO 09/02/25 22:00 Enoxaparin Sodium 90 mg DAILY SC 09/03/25 10:00 UNV Exam Vital Signs Vital Signs Date Time Temp Pulse Resp B/P (MAP) Pulse Ox O2 Delivery O2 Flow Rate FiO2 09/02/25 14:14 98.7 70 18 132/93 (106) 97 98.7 09/02/25 10:43 Room Air General Appearance: Alert, Oriented X3, Cooperative, No acute distress HEENT: Atraumatic, PERRLA, Mucous membr. moist/pink Respiratory: Clear to auscultation, Normal air movement Cardiovascular: Regular rate, Normal S1, Normal S2, No murmurs Abdominal: Normal bowel sounds, Soft, No tenderness Extremities: No edema, Normal pulses, No tenderness/swelling Skin: No rashes, No breakdown, No significant lesion Neuro: Normal gait (walks with a can), Normal speech, Strength at 5/5 X4 ext, Normal tone, Sensation intact, Cranial nerves 3-12 NL, Reflexes 2+ Psych/Mental Status: Mental status NL, Mood NL Labs/Xrays Labs Test 09/02/25 10:22 Range/Units White Blood Count 5.2 4.4-10.8 10^3/uL Red Blood Count 6.17 H 4.5-5.90 10^6/uL Hemoglobin 18.0 H 13.5-17.5 g/dL Hematocrit 54.4 H 41.0-53.0 % Mean Corpuscular Volume 88.2 80.0-100.0 fL Mean Corpuscular Hemoglobin 29.2 28.0-32.0 pg Mean Corpuscular Hemoglobin Concent 33.1 32.0-36.0 g/dL Red Cell Distribution Width 15.9 H 11.8-14.3 % Platelet Count 193 140-450 10^3/uL Mean Platelet Volume 7.3 6.9-10.8 fL Neutrophils (%) (Auto) 57.8 37.0-80.0 % Lymphocytes (%) (Auto) 29.5 10.0-50.0 % Monocytes (%) (Auto) 8.3 0.0-12.0 % Eosinophils (%) (Auto) 4.0 0.0-7.0 % Basophils (%) (Auto) 0.4 0.0-2.0 % Neutrophils # (Auto) 3.0 1.6-8.6 10 ^3/uL Lymphocytes # (Auto) 1.5 0.4-5.4 10 ^3/uL Monocytes # (Auto) 0.4 0-1.3 10 ^3/uL Eosinophils # (Auto) 0.2 0-0.8 10 ^3/uL Basophils # (Auto) 0 0-0.2 10 ^3/uL Nucleated Red Blood Cells 0.3 % Sodium Level 138 136-145 mmol/L Potassium Level 3.9 3.5-5.1 mmol/L Chloride Level 100 98-107 mmol/L Carbon Dioxide Level 29 20-31 mmol/L Anion Gap 9 5-15 Blood Urea Nitrogen 13 9-23 mg/dL Creatinine 1.75 H 0.700-1.30 mg/dL Glomerular Filtration Rate Calc 40 >90 mL/min BUN/Creatinine Ratio 7.4 L 10.0-20.0 Serum Glucose 84 74-106 mg/dL Calcium Level 9.5 8.7-10.4 mg/dL Troponin I High Sensitivity 9 </=54 ng/L SEPSIS Sepsis Screen Date sepsis recognized/suspect: Sep 02, 2025 Time Sepsis recognized/suspect: 954 Recent Procedure: No On Antibiotic Therapy: No Respiratory Rate >20: No Heart Rate >90: No Temp<36 C (96.8 F) or >38.3 C: No SBP <90 or MAP <65 mmHG: No New Acute Mental Status Change: No Is the patient on CPAP, BIPAP,: No Physician Orders Urinalysis (09/02/25 10:11) Head Without Contrast (09/02/25 12:14) Admit (09/02/25 14:17) Stat Ekg For Chest Pain (09/02/25 14:17) Notify Md Of Changes From Base (09/02/25 14:17) Morphine Sulfate Injection (09/02/25 14:30) Urinalysis (09/02/25 14:17) B-Type Natriuretic Peptide (09/02/25 14:17) Chest Xray 1 View (09/02/25 14:17) Drug Screen (09/02/25 14:17) Covid19 Antigen Kori (09/02/25 ) Rapid Influenza A&B (09/02/25 14:17) Sodium Chloride 0.9% (09/02/25 14:30) Ondansetron Hcl (Zofran) (09/02/25 14:30) Atorvastatin (Lipitor) (09/03/25 10:00) Docusate Sodium Capsule (Colace Capsule) (09/02/25 22:00) Gabapentin Capsule (Neurontin Capsule) (09/02/25 22:00) Lisinopril Tablet (Zestril Tablet) (09/03/25 10:00) Metoprolol Tartrate Tablet (Lopressor Ta (09/02/25 22:00) Pantoprazole Tablet (Protonix Tablet) (09/02/25 22:00) Sucralfate Tab (Carafate Tab) (09/02/25 22:00) Hemoglobin A1c (09/02/25 14:32) Enoxaparin Sodium (Lovenox) (09/03/25 10:00) Vital Signs Date Time Temp Pulse Resp B/P (MAP) Pulse Ox O2 Delivery O2 Flow Rate FiO2 09/02/25 14:14 98.7 70 18 132/93 (106) 97 98.7 09/02/25 10:43 98.5 83 18 123/80 (94) 96 98.5 09/02/25 10:43 83 18 96 Room Air 09/02/25 09:49 97.9 77 18 143/79 97 97.9 Laboratory Tests Test 09/02/25 10:22 White Blood Count 5.2 10^3/uL (4.4-10.8) Medications Medications Dose Ordered Sig/Gene Route Start Time Stop Time Status Last Admin Dose Admin Sodium Chloride 1,000 ml @ 1,000 mls/hr Q1H ONCE IV 09/02/25 10:15 09/02/25 11:14 DC 09/02/25 10:10 1,000 MLS/HR Assessment/Plan Assessment/Plan #General weakness likely due to Acute Metabolic encephalopathy. CT head CBC, CMP, TSH, ammonia. #Diabetes mellitus with hyperglycemia Insulin sliding scale HbA1c #Hypertensive heart disease with systolic/diastolic failure. Metoprolol 25mg po bid #Dehydration Fluids: NS IV Monitor Crea, BUN #Afib BNP EKG [id number] score: 4points Lovenox therapeutic #Chronic GERD Sucralfate. DVT prophylaxis: Lovenox Diet: Cardiac diet Goals of care discussed with the patient for more than 35 minutes: Code Status: Full code PCP: Dr. Calles, Cardiology; Dr. Lora Case discussed with Dr. Melvin The patient agrees to the admission plan. Plan discussed with: Patient My Orders Orders - KENDALL WALTERS RESIDENT Procedure Category Date Status Time Admit ADMIT 09/02/25 Transmitted 14:17 Stat Ekg For Chest DOLORES 09/02/25 In Process Pain 14:17 Notify Md Of Changes DOLORES 09/02/25 In Process From Base 14:17 Morphine Sulfate PHA 09/02/25 In Process Injection 14:30 Urinalysis LAB 09/02/25 Logged 14:17 B-Type Natriuretic LAB 09/02/25 Logged Peptide 14:17 Chest Xray 1 View XY 09/02/25 Taken 14:17 Drug Screen LAB 09/02/25 Logged 14:17 Covid19 Antigen Kori LAB 09/02/25 Logged Rapid Influenza A&B LAB 09/02/25 Logged 14:17 Sodium Chloride 0.9% PHA 09/02/25 In Process 14:30 Ondansetron Hcl PHA 09/02/25 In Process (Zofran) 14:30 Hemoglobin A1c LAB 09/02/25 Logged 14:32 Enoxaparin Sodium PHA 09/03/25 Logged (Lovenox) 10:00 Date of Service: Sep 02, 2025 Billing Provider: ROGER NIEVES MD Common Visit Codes: 89817-[id number] INP/OBS CARE (HIGH) Secondary Visit Codes: [id number] CARE PLAN 30 MINUTES KENDALL WALTERS Sep 02, 2025 15:10 ROGER NIEVES MD Sep 02, 2025 22:57
[2025-09-02 15:15] LABS: Urine Protein, UAD TRACE (Negative)
[2025-09-02 15:30] LABS: Amphetamine Screen, Urine Neg (NEGATIVE); Barbiturate Scree,Urine Neg (NEGATIVE); Benzodiazephine Screen, Urine Neg (NEGATIVE); Cannabinoid Screen, Urine Neg (NEGATIVE); Cocaine Screen, Urine Neg (NEGATIVE); Opiate Scree,Urine Pos (NEGATIVE); Phencyclidine Screen, Urine Neg (NEGATIVE)
[2025-09-02 16:23] LABS: COVID19 ANTIGEN SOFIA FIA NEGATIVE (NEGATIVE)
[2025-09-02 16:52] VITALS: BP 142/84; PULSE 76; RESP 18; TEMP 98.2; O2SAT 98
[2025-09-02 17:00] VITALS: O2SAT 94
[2025-09-02] MEDS: SODIUM CHLORIDE 0.9% 1,000 ML IV SCH (17:20)
[2025-09-02 17:26] LABS: Hematocrit 55.7 % (41.0-53.0); Hemoglobin 18.2 g/dL (13.5-17.5); Mean Corpuscular Hemoglobin 29.2 pg (28.0-32.0); Mean Corpuscular Volume 89.4 fL (80.0-100.0); Nucleated Red Blood Cells % 0.2 %
[2025-09-02 17:38] LABS: Chloride 102 mmol/L (98-107); Potassium 4.3 mmol/L (3.5-5.1); Sodium 140 mmol/L (136-145)
[2025-09-02 17:39] LABS: Anion Gap 10 (5-15); Calcium 9.0 mg/dL (8.7-10.4); Carbon Dioxide 28 mmol/L (20-31)
[2025-09-02 17:44] LABS: BUN/Creatinine Ratio 10.3 (10.0-20.0); Blood Urea Nitrogen 17 mg/dL (9-23); Glucose 76 mg/dL (74-106)
[2025-09-02 21:00] VITALS: BP 126/77; PULSE 72; RESP 19; TEMP 97.8; O2SAT 97
[2025-09-02] MEDS: METOPROLOL TARTRATE 25 MG TAB PO SCH (22:13)
[2025-09-02] MEDS: GABAPENTIN 300 MG CAP PO SCH (22:13)
[2025-09-02] MEDS: PANTOPRAZOLE 40 MG TAB PO SCH (22:13)
[2025-09-02] MEDS: SUCRALFATE 1 GM TAB PO SCH (22:13)
[2025-09-02] MEDS: DOCUSATE SOD 100 MG CAP PO SCH (22:13)
[2025-09-02] MEDS: MELATONIN 5 MG TAB PO ONE (22:34)
[2025-09-03] VITALS (8 sets, daily range): BP systolic 122–140; BP diastolic 64–87; PULSE 69–77; RESP 14–20; TEMP 97.8–98.5; O2SAT 94–98
[2025-09-03 06:16] LABS: Hematocrit 51.1 % (41.0-53.0); Hemoglobin 17.2 g/dL (13.5-17.5); Mean Corpuscular Hemoglobin 30.1 pg (28.0-32.0); Mean Corpuscular Volume 89.1 fL (80.0-100.0); Nucleated Red Blood Cells % 0.2 %
[2025-09-03 06:24] LABS: Chloride 102 mmol/L (98-107); Potassium 3.8 mmol/L (3.5-5.1); Sodium 137 mmol/L (136-145)
[2025-09-03 06:25] LABS: Anion Gap 10 (5-15); Carbon Dioxide 25 mmol/L (20-31)
[2025-09-03 06:26] LABS: Calcium 8.9 mg/dL (8.7-10.4)
[2025-09-03 06:30] LABS: BUN/Creatinine Ratio 9.4 (10.0-20.0); Blood Urea Nitrogen 14 mg/dL (9-23)
[2025-09-03 06:33] LABS: Glucose 69 mg/dL (74-106)
--- NOTE | 2025-09-03 07:32 | ECG ---
[facility] Test Date: 2025-09-02 Test Time: 22:11:47 Pat Name: SHUN SALAZAR Department: Respiratoy Room: 0220 A Gender: M Director Of Product Design: : 1950 Requested By: KENDALL WALTERS Order Number: [id number] Reading MD: Roberto Fierro Measurements Intervals [place] Rate: 72 P: 35 MO: 164 QRS: -49 QRSD: 95 T: -5 QT: 358 QTc: 392 Interpretive Statements Sinus rhythm Left anterior fascicular block Abnormal R-wave progression, late transition Borderline T wave abnormalities Electronically Signed On 09-08-2025 12:50:33 PST by Roberto Fierro Please click the below link to view image of tracing.
[2025-09-03] MEDS: ATORVASTATIN 20 MG TAB PO SCH (09:30)
[2025-09-03] MEDS: LISINOPRIL 5 MG TAB PO SCH (09:31)
[2025-09-03] MEDS: ENOXAPARIN SOD 40 MG/0.4 ML SYRINGE SC SCH (09:33)
[2025-09-03] MEDS: ENOXAPARIN SOD 120 MG/0.8 ML SYRINGE SC SCH (21:12)
[2025-09-03] MEDS ORDERED: MELATONIN 5 MG TAB PO ONE (22:00)
[2025-09-04 01:00] VITALS: BP 129/77; PULSE 73; RESP 17; TEMP 97.6; O2SAT 95
[2025-09-04 05:00] VITALS: BP 147/87; PULSE 68; RESP 18; TEMP 98.8; O2SAT 95
[2025-09-04 06:33] LABS: Hematocrit 54.0 % (41.0-53.0); Hemoglobin 17.8 g/dL (13.5-17.5); Mean Corpuscular Hemoglobin 29.7 pg (28.0-32.0); Mean Corpuscular Volume 90.1 fL (80.0-100.0); Nucleated Red Blood Cells % 0.0 %
[2025-09-04 06:48] LABS: Anion Gap 11 (5-15); Carbon Dioxide 24 mmol/L (20-31); Chloride 104 mmol/L (98-107); Potassium 4.4 mmol/L (3.5-5.1); Sodium 139 mmol/L (136-145)
[2025-09-04 06:49] LABS: Calcium 8.9 mg/dL (8.7-10.4)
[2025-09-04 07:00] LABS: Glucose 66 mg/dL (74-106)
[2025-09-04 07:30] LABS: BUN/Creatinine Ratio 7.3 (10.0-20.0); Blood Urea Nitrogen 12 mg/dL (9-23)
[2025-09-04 08:00] VITALS: RESP 17
[2025-09-04 08:25] VITALS: BP 133/81; PULSE 69; RESP 20; TEMP 97.8; O2SAT 95
--- NOTE | 2025-09-04 11:24 | DVHPNRES ---
Progress Note Date Seen: Sep 03, 2025 Resident Creating Document: KENDALL WALTERS RESIDENT Has the PT tested + for MRSA If YES, has PT been informed?: No Medical Necessity Reason Pt with a Central, PICC or Fol: No Subjective Review of Systems Cipriano Smith I. Is a 75-year-old male, with past medical history of HTN, hyperlipidemia, aFib (on Eliquis), pacemaker, and DM2. The patient came to the ED with chief complaint of 3 days of generalized weakness associated with malaise and subjective intermittent fevers. Today, the patient reports his weakness did not improved with rest and he start feeling dizziness and feeling shaky, this prompted his visit to the ED. The patient denies falls, headache, chest pain, abdominal pain, diarrhea, nausea, vomit, recent travels or sick contacts. In the ED BP: 143/79mmHg, HR: 77. The patient will be admitted for further assessment and management. Cardiovascular: AFIB, HTN, hyperipidemia Renal/: Chronic renal failure Endocrine: Diabetes (type 2) Past Surgical History: Other (pacemaker) Family History Unknown Smoke: No ALCOHOL: none Drugs: None Lives: with [facility] course: On 09/03/25, the patient was evaluated and examined at bed side, VS, labs and chart was reviewed. . HbA1c: 6.8%. The patient is still reports weakness and dizziness. EKG was requested. Creatinine levels still elevated. The patient continues with IV fluids. We will continue monitoring this patient kidney function. I spoke with the patient and notified her about the patient status. We will continue following up this patient's progress. ROS: Constitutional: Denies fever, chills. Eyes: No: Pain, Vision change, Conjunctivae inflammation, Eyelid inflammation, Other, Redness ENT: No: Ear pain, Ear discharge, Nose pain, Nose discharge, Nose congestion, Mouth pain, Mouth swelling, Throat pain, Throat swelling, Other Respiratory: No: Cough, Dry, Shortness of breath, SOB with excertion, Wheezing, Hemoptysis, Pleuritic Pain, Sputum, Wheezing, Other Cardiovascular: No: Chest Pain, Palpitations, Orthopnea, Paroxysmal Noc. Dyspnea, Edema, Lt Headedness, Other Gastrointestinal: No: Nausea, Vomiting, Abdominal Pain, Diarrhea, Constipation, Melena, Hematochezia, Other Genitourinary: No Dysuria, No Frequency, No Incontinence, No Hematuria, No Retention, No Other Musculoskeletal: No: other, neck pain, shoulder pain, arm pain, back pain, hand pain, leg pain, foot pain Skin: No: Rash, Lesions, Jaundice, Bruising, Other Neurological: mild Weakness, Other (Dizziness) Allergies: Ibuprofen (Verified Allergy, Intermediate, 10/15/23) Objective vital signs Vital Sign Date Time Temp Pulse Resp B/P (MAP) Pulse Ox O2 Delivery O2 Flow Rate FiO2 09/03/25 16:46 98.5 74 14 128/64 (85) 98 98.5 09/03/25 08:00 Room Air* 0 21 Total Intake and Output 09/02/25 09/02/25 09/03/25 15:00 23:00 07:00 Intake Total 0 ml 300 ml Balance 0 ml 300 ml medications Current Medications Medications Dose Ordered Sig/Gene Route Start Time Stop Time Status Last Admin Dose Admin Morphine Sulfate 2 mg Q30M PRN IV 09/02/25 14:30 Sodium Chloride 1,000 ml @ 75 mls/hr [id number] IV 09/02/25 14:30 09/03/25 03:50 75 MLS/HR Ondansetron HCl 4 mg PRN PRN IV 09/02/25 14:30 Atorvastatin Calcium 20 mg DAILY PO 09/03/25 10:00 09/03/25 09:30 20 MG Docusate Sodium 100 mg BID PO 09/02/25 22:00 09/03/25 09:29 100 MG Gabapentin 300 mg BID PO 09/02/25 22:00 09/03/25 09:30 300 MG Lisinopril 5 mg DAILY PO 09/03/25 10:00 09/03/25 09:31 5 MG Metoprolol Tartrate 25 mg BID PO 09/02/25 22:00 09/03/25 09:31 25 MG Pantoprazole Sodium 40 mg BID PO 09/02/25 22:00 09/03/25 09:29 40 MG Sucralfate 1 gm BID PO 09/02/25 22:00 09/03/25 09:30 1 GM Enoxaparin Sodium 120 mg BID SC 09/03/25 22:00 Examination General Appearance: Alert, Oriented X3, Cooperative, No acute distress HEENT: Atraumatic, PERRLA, Mucous membr. moist/pink Respiratory: Clear to auscultation, Normal air movement Cardiovascular: Regular rate, Normal S1, Normal S2, No murmurs Abdominal: Normal bowel sounds, Soft, No tenderness Extremities: No edema, Normal pulses, No tenderness/swelling Skin: No rashes, No breakdown, No significant lesion Neuro: slow gait (walks with a can), Normal speech, Strength at 5/5 X4 ext, Normal tone, Sensation intact, Cranial nerves 3-12 NL, Reflexes 2+ Psych/Mental Status: Mental status NL, Mood NL laboratory and microbiology Laboratory Tests 09/03/25 05:01 Test 09/03/25 05:01 Range/Units Serum Glucose 69 L 74-106 mg/dL Problem List/Assessment/Plan Problem List/Assessment/Plan #Acute General weakness likely due to Acute Metabolic encephalopathy. CT head CBC, CMP, TSH, ammonia. #Chronic Diabetes mellitus with hyperglycemia Insulin sliding scale HbA1c #Chronic Hypertensive heart disease with systolic/diastolic failure. Metoprolol 25mg po bid #Acute Dehydration Fluids: NS IV Monitor Crea, BUN #Chronic Afib BNP EKG [id number] score: 4points Lovenox therapeutic #Chronic GERD Sucralfate. DVT prophylaxis: Lovenox Diet: Cardiac diet Goals of care discussed with the patient for more than 35 minutes: Code Status: Full code PCP: Dr. Calles, Cardiology; Dr. Lora Case discussed with Dr. Melvin The patient agrees to the admission plan. Plan discussed with: Patient Plan discussed with: Patient, Spouse My Orders My Orders Orders - KENDALL WALTERS Procedure Category Date Status Time Complete Blood Count LAB 09/04/25 Verified 04:00 Basic Metabolic Panel LAB 09/04/25 Verified 04:00 Enoxaparin Sodium PHA 09/03/25 In Process (Lovenox) 22:00 Date of Service: Sep 03, 2025 Billing Provider: ROGER NIEVES MD Common Visit Codes: [id number] INP/OBS CARE(HIGH) KENDALL WALTERS RESIDENT Sep 03, 2025 19:02 ROGER NIEVES MD Sep 03, 2025 22:41
[2025-09-04 12:53] VITALS: BP 121/67; PULSE 67; RESP 20; TEMP 98; O2SAT 95
--- NOTE | 2025-09-04 14:08 | DVHDSRES ---
Discharge Summary Date of Admission Resident Creating Document: KENDALL WALTERS RESIDENT Sep 02, 2025 at 14:17 Date of Discharge: Sep 04, 2025 Admitting Diagnosis Rule out acute CVA Acute general weakness likely to acute metabolic encephalopaty CARLOZ on CKD stage 3b due to acute VMN Acute moderate dehydration Chronic Afib, not in RVR Wounds: No wounds Labs/Diagnostic Data: Laboratory Results Test 09/04/25 05:30 09/02/25 17:12 09/02/25 15:00 09/02/25 14:51 White Blood Count 5.3 10^3/uL (4.4-10.8) Red Blood Count 5.99 10^6/uL (4.5-5.90) Hemoglobin 17.8 g/dL (13.5-17.5) Hematocrit 54.0 % (41.0-53.0) Mean Corpuscular Volume 90.1 fL (80.0-100.0) Mean Corpuscular Hemoglobin 29.7 pg (28.0-32.0) Mean Corpuscular Hemoglobin Concent 33.0 g/dL (32.0-36.0) Red Cell Distribution Width 16.0 % (11.8-14.3) Platelet Count 188 10^3/uL (140-450) Mean Platelet Volume 7.4 fL (6.9-10.8) Neutrophils (%) (Auto) 61.6 % (37.0-80.0) Lymphocytes (%) (Auto) 23.6 % (10.0-50.0) Monocytes (%) (Auto) 10.9 % (0.0-12.0) Eosinophils (%) (Auto) 3.5 % (0.0-7.0) Basophils (%) (Auto) 0.4 % (0.0-2.0) Neutrophils # (Auto) 3.3 10 ^3/uL (1.6-8.6) Lymphocytes # (Auto) 1.3 10 ^3/uL (0.4-5.4) Monocytes # (Auto) 0.6 10 ^3/uL (0-1.3) Eosinophils # (Auto) 0.2 10 ^3/uL (0-0.8) Basophils # (Auto) 0 10 ^3/uL (0-0.2) Nucleated Red Blood Cells 0.0 % Sodium Level 139 mmol/L (136-145) Potassium Level 4.4 mmol/L (3.5-5.1) Chloride Level 104 mmol/L (98-107) Carbon Dioxide Level 24 mmol/L (20-31) Anion Gap 11 (5-15) Blood Urea Nitrogen 12 mg/dL (9-23) Creatinine 1.64 mg/dL (0.700-1.30) Glomerular Filtration Rate Calc 43 mL/min (>90) BUN/Creatinine Ratio 7.3 (10.0-20.0) Serum Glucose 66 mg/dL (74-106) Calcium Level 8.9 mg/dL (8.7-10.4) Ammonia < 10 umol/L (11-32) Thyroid Stimulating Hormone (TSH) 1.15 uIU/mL (0.55-4.78) Urine Color Light-yellow (Yellow) Urine Clarity Clear (Clear) Urine pH 5.5 (5.0-9.0) Urine Specific [place] 1.015 (1.001-1.035) Urine Protein Trace (Negative) Urine Ketones 1+ (Negative) Urine Blood Negative /uL (Negative) Urine Nitrite Negative (Negative) Urine Bilirubin Negative (Negative) Urine Urobilinogen Normal mg/dL (Negative) Urine Leukocyte Esterase Negative /uL (Negative) Urine RBC 2 /hpf (0 - 3) Urine Microscopic WBC < 1 /HPF (0-3) Urine Squamous Epithelial Cells None seen /hpf (<5) Urine Bacteria None seen /hpf (None Seen) Urine Glucose Normal mg/dL (Normal) Urine Opiates Screen Pos (NEGATIVE) Urine Fentanyl Screen Neg (NEGATIVE) Urine Barbiturates Screen Neg (NEGATIVE) Urine Phencyclidine Screen Neg (NEGATIVE) Urine Amphetamines Screen Neg (NEGATIVE) Urine Benzodiazepines Screen Neg (NEGATIVE) Urine Cocaine Screen Neg (NEGATIVE) Urine Cannabinoids Screen Neg (NEGATIVE) Influenza Type A Antigen Negative (Negative) Influenza Type B Antigen Negative (Negative) SARS-CoV-2 Antigen (Rapid) Negative (NEGATIVE) Test 09/02/25 10:22 Hemoglobin A1c 6.8 % A1C (<5.7) Troponin I High Sensitivity 9 ng/L (</=54) B-Type Natriuretic Peptide 28.24 pg/mL (0-100) Other Laboratory Tests 09/04/25 05:30 Brief Hx & Hospital Course: Cipriano Smith Venita Is a 75-year-old male, with past medical history of HTN, hyperlipidemia, aFib (on Eliquis), pacemaker, and DM2. The patient came to the ED with chief complaint of 3 days of generalized weakness associated with malaise and subjective intermittent fevers. Today, the patient reports his weakness did not improved with rest and he start feeling dizziness and feeling shaky, this prompted his visit to the ED. The patient denies falls, headache, chest pain, abdominal pain, diarrhea, nausea, vomit, recent travels or sick contacts. In the ED BP: 143/79mmHg, HR: 77. The patient will be admitted for further assessment and management. Cardiovascular: AFIB, HTN, hyperipidemia Renal/: Chronic renal failure Endocrine: Diabetes (type 2) Past Surgical History: Other (pacemaker) Family History Unknown Smoke: No ALCOHOL: none Drugs: None Lives: with Family Hospital course: On 09/03/25, the patient was evaluated and examined at bed side, VS, labs and chart was reviewed. . HbA1c: 6.8%. The patient is still reports weakness and dizziness. EKG was requested. Creatinine levels still elevated. The patient continues with IV fluids. We will continue monitoring this patient kidney function. I spoke with the patient and notified her about the patient status. We will continue following up this patient's progress. On 09/04/25, the patient was evaluated and examined at bed side, VS, labs and chart was reviewed. Today, the patient reports he is feeling better, his weakness has improved. Due to clinical improvement, the patient is being discharge home today. The patient we will follow with PCP in 1 week. I spoke with the patient and notified her about the patient discharge. ROS: Constitutional: Denies fever, chills. Eyes: No: Pain, Vision change, Conjunctivae inflammation, Eyelid inflammation, Other, Redness ENT: No: Ear pain, Ear discharge, Nose pain, Nose discharge, Nose congestion, Mouth pain, Mouth swelling, Throat pain, Throat swelling, Other Respiratory: No: Cough, Dry, Shortness of breath, SOB with excertion, Wheezing, Hemoptysis, Pleuritic Pain, Sputum, Wheezing, Other Cardiovascular: No: Chest Pain, Palpitations, Orthopnea, Paroxysmal Noc. Dyspnea, Edema, Lt Headedness, Other Gastrointestinal: No: Nausea, Vomiting, Abdominal Pain, Diarrhea, Constipation, Melena, Hematochezia, Other Genitourinary: No Dysuria, No Frequency, No Incontinence, No Hematuria, No Retention, No Other Musculoskeletal: No: other, neck pain, shoulder pain, arm pain, back pain, hand pain, leg pain, foot pain Skin: No: Rash, Lesions, Jaundice, Bruising, Other Neurological: Weakness, improved, no dizziness Allergies: Ibuprofen (Verified Allergy, Intermediate, 10/15/23) General Appearance: Alert, Oriented X3, Cooperative, No acute distress HEENT: Atraumatic, PERRLA, Mucous membr. moist/pink Respiratory: Clear to auscultation, Normal air movement Cardiovascular: Regular rate, Normal S1, Normal S2, No murmurs Abdominal: Normal bowel sounds, Soft, No tenderness Extremities: No edema, Normal pulses, No tenderness/swelling Skin: No rashes, No breakdown, No significant lesion Neuro: slow gait (walks with a can), Normal speech, Strength at 5/5 X4 ext, Normal tone, Sensation intact, Cranial nerves 3-12 NL, Reflexes 2+ Psych/Mental Status: Mental status NL, Mood NL Operations or Procedures CT HEAD WITHOUT CONTRAST INDICATION: tia EXAM DATE: 09/02/2025 12:13 PM COMPARISON: CT SINUS WITHOUT CONTRAST on DOS: 04/10/25, CT HEAD WITHOUT CONTRAST on DOS: 10/16/23, US CAROTID DUPLX W COLOR DOP on DOS: 06/05/23 RADIATION DOSE: CTDIvol: 69.37 mGy, DLP: 1505.37 mGy*cm PROCEDURE: CT scans of the head were obtained from the vertex to the skull base. Sagittal and coronal reconstructions were provided. All CT scans at this medical facility are performed using dose modulation techniques as appropriate to a performed exam including the following: Automated exposure control was utilized; adjustment of the MA and/or KV according to patient size; and use of iterative reconstruction technique. FINDINGS: There is sulcal and ventricular prominence. The brainshows normal morphology and arauz-white matter differentiation, without intracranial hemorrhage, extra-axial fluid collection, mass effect or acute large vessel infarct. The ventricles are normal in size. The basal cisterns are patent. The skull and visible facial bones are intact. The paranasal sinuses, mastoid air cells and middle ear cavities are well-aerated. The soft tissues of the scalp are unremarkable. IMPRESSION: No acute intracranial abnormality. : XY CHEST XRAY 1 VIEW Indication: Pain Technique: Single frontal view of the chest was obtained Comparison: XY CHEST TWO VIEWS ROUTINE on DOS: 02/23/25, XY CHEST TWO VIEWS ROUTINE on DOS: 01/31/25, XY CHEST TWO VIEWS ROUTINE on DOS: 01/23/24, XY CHEST PORTABLE on DOS: 10/15/23, XY CHEST PORTABLE on DOS: 06/10/23 FINDINGS: Lines and Tubes: Cardiac pacemaker projects over left chest wall. Lungs: No focal consolidation. Pleura: No effusion. No pneumothorax. Cardiomediastinal contours: Unremarkable Bones: No acute osseous abnormality. IMPRESSION: No acute cardiopulmonary disease. Condition at Discharge: Stable Final Diagnosis/Problems List CARLOZ on CKD stage 3b due to acute VMN Acute general weakness likely to acute metabolic encephalopaty Acute moderate dehydration Chronic Afib, not in RVR Acute CVA, ruled out Discharge Disposition: Home SNF Discharge Will this Physician continue t: No Discharge Instruct/Medications Diet: Consistent carbohydrate, Cardiac 2g Na,low cholest Activity: No Restrictions, As Tolerated Follow Up/Referral: F/U with PCP in 1 week Medications: Continue with home medications Scheduled Apixaban Base (Eliquis), 2.5 MG PO BID, (Reported) Aspirin (Aspirin), 81 MG PO DAILY, (Reported) Atorvastatin Calcium (Atorvastatin Calcium), 1 TAB PO DAILY, (Reported) Baclofen (Baclofen), 5 MG PO Q8HR Docusate Sodium (Colace), 100 MG PO BID, (Reported) Gabapentin (Gabapentin), 300 MG PO BID, (Reported) Lidocaine (Lidoderm 5% Topical Patch), 1 PATCH TOP DAILY Lisinopril (Lisinopril), 5 MG PO DAILY, (Reported) Metoprolol Tartrate (Metoprolol Tartrate), 25 MG PO BID, (Reported) Montelukast Sodium (Montelukast Sodium), 1 TAB PO DAILY, (Reported) Pantoprazole Sodium Sesquihydr (Protonix), 40 MG PO BID Sucralfate (Carafate), 1 GM PO BID Scheduled PRN Lactulose (Generlac), 10 GM PO TIDP PRN for FOR CONSTIPATION, (Reported) Miscellaneous Medications Magnesium Oxide (Magnesium Oxide), 500 MG OR, (Reported) Melatonin ( Melatonin), 5 MG PO, (Reported) Discontinued Medications Diclofenac Sodium (Diclofenac Sodium Dr), 1 TAB PO BID, (Reported) Loratadine (Claritin), 1 TAB PO DAILY, (Reported) Tramadol Hcl (Tramadol Hcl), 50 MG PO Q4HPRN, (Reported) Discharge Statement: "Patient was advised to return to the ER or call 911 if any headaches, dizziness, shortness of breath, chest pain, abdominal pain, bleeding, fevers, or worsening of medical condition. Patient was counseled about treatment plan, medications, possible side effects, patientverbalized understanding. All questions were answered to the best of my ability. This discharge took greater then 30 minutes in planning, reviewing documentation, counseling the patient, and discussing with other team members." ASSESSMENT ASSESSMENT Assessment #CARLOZ on CKD stage 3b due to acute VMN #Acute general weakness likely to acute metabolic encephalopaty #Acute moderate dehydration #Chronic Afib, not in RVR #Acute CVA, ruled out Diet: Cardiac diet Goals of care discussed with the patient for more than 35 minutes: Code Status: Full code PCP: Non S. Case discussed with Dr. Nieves. Date of Service: Sep 04, 2025 Billing Provider: ROGER NIEVES MD Common Visit Codes: 40086-JKV/OBS DISCH DAY >30min KENDALL WALTERS RESIDENT Sep 04, 2025 14:08 ROGER NIEVES MD Sep 04, 2025 23:31
== END 2025-09-04 12:30 | disposition home or self-care (01) | DRG 682 ==
LOC: ER 09:48 → OVERFLOW 14:17 → CENTRAL 16:53
PROVIDERS: ADMIT Internal Medicine; ATTEND Internal Medicine
DX: N17.0 Acute kidney failure with tubular necrosis (principal); G93.41 Metabolic encephalopathy; I48.20 Chronic atrial fibrillation, unspecified; E11.22 Type 2 diabetes mellitus with diabetic chronic kidney disease; E86.0 Dehydration; E11.65 Type 2 diabetes mellitus with hyperglycemia; I50.42 Chronic combined systolic (congestive) and diastolic (congestive) heart failure; I13.0 Hypertensive heart and chronic kidney disease with heart failure and stage 1 through stage 4 chronic kidney disease, or unspecified chronic kidney disease; N18.32 Chronic kidney disease, stage 3b; K21.9 Gastro-esophageal reflux disease without esophagitis; I48.91 Unspecified atrial fibrillation; E78.5 Hyperlipidemia, unspecified; Z79.899 Other long term (current) drug therapy; Z79.82 Long term (current) use of aspirin; Z79.01 Long term (current) use of anticoagulants; Z88.6 Allergy status to analgesic agent; Z95.0 Presence of cardiac pacemaker
CPT/HCPCS: 36415; 70450; 71045; 80048; 80307; 81001; 82140; 83036; 83880; 84443; 84484; 85025; 87426; 87804; 93005; 96360; G0378